=== PATIENT | male | born 1945 | race Caucasian/White ===

== ENCOUNTER → 2016-09-30 | Outpatient (CLI) | payer MEDICARE ==
--- NOTE | 2016-09-30 22:45 | CONS ---
DATE OF CONSULTATION: 71-year-old male patient, morbidly obese, with various comorbid conditions, more significant of which is cardiovascular disease coming in for a sleep apnea evaluation. Note that the patient has had a very complicated appendectomy. This was complicated by development of large anterior abdominal wall hernia. That was ultimately repaired and he also suffers from degenerative arthritis involving the knees. Based on all this, the patient has been sleeping on a recliner for the past 4 years. He watches TV starting at 9:00 p.m., and he goes to sleep somewhere between 10:00 p.m. and midnight, and he ultimately gets out of his recliner somewhere between 6 to 8:00 a.m. in the morning. He has been doing this for the past 4 years and he has not slept in his bed. He sleeps on his back while sleeping in a recliner. He does not have a bed partner. He snores and he has significant crowding of the posterior pharynx. He denies waking up gasping for air. No restlessness in the lower extremities. He has a dry mouth in the morning. No nocturia. No waking up choking or gasping sensation. He has chronic dyspnea in addition, he has COPD and previous history of asbestosis along with aortic valve disease and the patient undergone a previous aortic valve replacement. He is obese. His weight has been fluctuating. Overall he has gained considerable amount of weight and is up to 282 pounds for now. No sleepwalking. No sleeptalking. No nocturnal chest pain. No nocturnal heartburn. No sleep paralysis, hallucinations or cataplexy or nightmares. PAST MEDICAL HISTORY: Obesity, COPD, asbestosis, coronary artery disease, disease, aortic valve disease, ( ) valve replacement, degenerative arthritis, atrial fibrillation, status post ablation. Hyperlipidemia. Past surgical history includes a combination of hernia repair on the left groin, cystoscopy, left kidney surgery, vasectomy, right knee arthroscopy, carpal tunnel release bilaterally. The bilateral hip replacement, appendectomy/ruptured appendix. Repair the anterior abdominal wall hernia, cardiac catheterization with insertion of coronary stent in 2014, cystoscopy for removal of kidney stone in 2015, aortic valve replacement and cardiac catheterization with ablation of atrial fibrillation. Drug allergies are not known. Outpatient medication list includes: 1. Diltiazem 120 mg p.o. daily. 2. Metoprolol 25 mg half tablet twice a day. 3. Warfarin 4.5 mg. 4. Aspirin 81 milligrams p.o. daily. 5. Lasix 40 mg p.o. daily. 6. Klor-Con 20 mEq daily. 7. Nasonex 50 mg nasal spray. 8. ( ) on an as needed basis. 9. ( ) on an as needed basis. 10. Ventolin HFA on a p.r.n. basis. 11. Atorvastatin 80 mg p.o. daily. 12. Warfarin 4.5 mg alternating with 6 mg, 6 mg are being taken and Saturdays and 4.5 mg rest of the week. FAMILY HISTORY: Negative for sleep apnea. Father and brother had coronary artery disease. REVIEW OF SYSTEMS: Twelve-point review of systems was done. Positive findings all mentioned above in the history of present illness. His current vital signs are as follows: His blood pressure is 130/71, pulse 98, respirations 20, temperature 97.3, saturation 93% on room air. Weight is 295. Height is 5 feet 7 inches. Neck size is 19-1/2 inches. BMI is 46.6. GENERAL APPEARANCE: Obese, calm, comfortable. HEENT: Short neck, crowding posterior pharynx. Mallampati class IV. Neck is supple, yet thick and short. LUNGS: Clear to auscultation. HEART: Heart sounds are regular, plus S1, S2. No S3. No murmurs. ( ) intact. ABDOMEN: Soft, nontender, obese. Organs cannot be accurately palpated. EXTREMITIES: Trace edema. There is no cyanosis or clubbing. IMPRESSION: 1. Obstructive sleep apnea, clinically suspected, currently under investigation. 2. Chronic hypersomnia with an [place] score of 11. 3. Difficulty in laying down in bed and the patient has been sleeping in a recliner for reasons mentioned above, including chronic pain and degenerative arthritis of the hips and the knees and a large intraabdominal hernia. 4. Coronary artery disease. 5. Aortic valve replacement. 6. Paroxysmal atrial fibrillation, status post ablation. 7. Hyperlipidemia. 8. Asbestosis. 9. Chronic obstructive pulmonary disease. PLAN: Proceed with a screening polysomnogram. This will be done sleep center where the patient's sleep in a recliner. There is a fairly high suspicion for obstructive sleep apnea syndrome in this patient and the patient will be investigated and treated accordingly. Meanwhile, he will be encouraged to lose weight. Sleep hygiene measures were emphasized with him today in the office. Will continue to follow and make further recommendations based on his progress and the sleep results.
== END ==
LOC: SLEEP 15:13
PROVIDERS: ATTEND Internal Medicine Critical Care Medicine
DX: G47.10 Hypersomnia, unspecified (principal); I25.10 Atherosclerotic heart disease of native coronary artery without angina pectoris; I48.0 Paroxysmal atrial fibrillation; E78.5 Hyperlipidemia, unspecified; J44.9 Chronic obstructive pulmonary disease, unspecified; J61 Pneumoconiosis due to asbestos and other mineral fibers; Z79.899 Other long term (current) drug therapy; Z79.01 Long term (current) use of anticoagulants; Z79.82 Long term (current) use of aspirin
CPT/HCPCS: 99211

== ENCOUNTER → 2017-01-06 | Outpatient (CLI) | payer MEDICARE ==
--- NOTE | 2017-01-06 22:36 | PN ---
PROGRESS NOTE This is a 71-year-old male patient diagnosed having severe obstructive sleep apnea with an AHI of 42.3. The patient had failed CPAP titration due to emergence of central and mixed apneas. Based on that, he was upgraded to an ASV mode of ventilation. Today he is coming in for a brief compliance check. He has gotten his new machine approximately 13 days ago and is very compliant. He is having some issues with a leak around the mask. He was initially given an Marjorie View and at a later stage he was switched to an AirFit F20 Touch medium-size. He prefers the Amrjorie View and the AirFit F20, he claims, causes restriction of his nose to the point where he is unable to breathe through his nose. His compliance is gradually improving. He is averaging more than 5 hours of ASV use every night; however, his mouth is dry and this is attributed to the high leak which is estimated to be around 74 L/minute. His AHI while on treatment is down to 9 at this point. He is benefitting from treatment. He is waking up alert and awake during the day and he is much more refreshed. I think the mask interface needs to be adjusted to make the treatment much more successful. He is also known to have COPD, asbestosis, hyperlipidemia, paroxysmal atrial fibrillation and he has had previous aortic valve replacement in addition to coronary artery disease and abdominal hernia and degenerative arthritis. BP is 158/82, pulse 96, respirations 20, temperature 97.6 weight is 301 and saturation 94% on room air. GENERAL APPEARANCE: Calm, comfortable. HEENT: Short neck, crowding of posterior pharynx. No goiter or neck masses. LUNGS: Diminished breath sounds, but otherwise clear. HEART: Sounds are regular rate and rhythm. Normal S1, S2. No S3, S4. No murmurs. ABDOMEN: Soft, nontender. No organomegaly. EXTREMITIES: Trace edema. There is no cyanosis or clubbing. IMPRESSION: 1. Severe symptomatic obstructive sleep apnea, apnea-hypopnea index of 42.3. 2. Currently on Adaptive Servo Ventilation mode, as the patient has failed continuous positive airway pressure/bi-level positive airway pressure therapy. 3. Increased leak around the full-face mask. Looking for alternative. 4. Chronic hypersomnia, improving. 5. Poor sleep efficiency, improving. 6. Chronic obstructive pulmonary disease. 7. Asbestosis. 8. Hyperlipidemia. 9. Paroxysmal atrial fibrillation. 10.Aortic valve replacement. 11.Coronary artery disease. 12.Large abdominal hernia. PLAN: 1. Proceed with same pressure settings on his ASV. 2. Change this patient to an AirFit F20 large size full-face mask. 3. See me back in a month in followup. I think the change in the mask interface should help this patient's compliance in general. Will follow. MMKARLAL / IJN: [id number] /
== END ==
LOC: SLEEP 13:16
PROVIDERS: ATTEND Internal Medicine Critical Care Medicine
DX: G47.33 Obstructive sleep apnea (adult) (pediatric) (principal); G47.10 Hypersomnia, unspecified; J44.9 Chronic obstructive pulmonary disease, unspecified; E78.5 Hyperlipidemia, unspecified; I48.0 Paroxysmal atrial fibrillation; I25.10 Atherosclerotic heart disease of native coronary artery without angina pectoris; J61 Pneumoconiosis due to asbestos and other mineral fibers; K46.9 Unspecified abdominal hernia without obstruction or gangrene; Z95.2 Presence of prosthetic heart valve

== ENCOUNTER → 2017-06-16 | Outpatient (CLI) | payer MEDICARE ==
--- NOTE | 2017-06-16 14:09 | PN ---
PROGRESS NOTE A 72-year-old male patient coming in for a compliancy check. The patient had a difficult to treat obstructive sleep apnea. In fact, the patient had severe MONET with an AHI of 42.3 and he has failed CPAP/BiPAP titration. BiPAP treatment due to central events emerging at the time of treatment. Based on that, the patient was given an ASV BiPAP unit. On today's evaluation, the patient is using his BiPAP every night. He has an AirFit F20 full-face mask. He is averaging about 4.9 hours of ASV treatment every night and his leak factor is 79 L/minute. His AHI is down to 12. No central events have been noted. The measure tidal volume is around 650. No angina. He has chronic atrial fibrillation. He has asbestosis and hyperlipidemia as comorbid conditions. He has lost about 3 pounds since his last visitation. Apparently the ASV machine is at times turning itself off and he has an appointment with [facility] today and he is going to be considered for a new ASV unit. I would suggest keeping the settings the same. I would also suggest turning the ramp off as the patient is very comfortable with the current settings. REVIEW OF SYSTEMS: 12-point review of system was done. No angina, no palpitations. No nausea, vomiting or diarrhea. No cough or sputum production. No change in vision. No headache, no change in mental status. No dysuria, no falls, no sleepwalking or sleep talking. No altered mentation. No dry mouth. He has no other complaints, otherwise. BP is 122/54, pulse 85, respirations 18, temperature 98.1, saturation 95% on room air. Weight is 299. Height 65 inches. [place] score is 11. BMI is 49.7. GENERAL APPEARANCE: Calm, comfortable. Head is atraumatic, normocephalic. Neck is short, supple, there is no JVD. No goiter or neck masses. He has significant crowding of posterior pharynx. LUNGS: Diminished breath sounds. Otherwise clear. HEART: Sounds are irregular. Positive S1, S2. No S3, S4. No murmurs. ABDOMEN: Soft, nontender. No organomegaly. EXTREMITIES: No edema. No cyanosis or clubbing. SKIN: No ulcers or wounds or cellulitis. IMPRESSION: 1. Complex sleep apnea with treatment emergent central events. The patient's baseline apnea-hypopnea index is 42.3. He has failed CPAP/BiPAP treatment due to emergent central events. Apparently the patient is currently undergoing ASV treatment. 2. Increased leaks around the mask and the patient utilizing an AirFit F20 full-face mask. 3. Hypersomnia, improved. 4. Chronic obstructive pulmonary disease. 5. Asbestosis. 6. Hyperlipidemia. 7. Paroxysmal atrial fibrillation. 8. Aortic valve replacement. 9. Coronary artery disease. 10.Large abdominal wall hernia. PLAN: 1. Continue same ASV settings. 2. Replace ASV unit with a newer unit for the problems mentioned above. 3. Encourage further weight loss. 4. See me back in a year's time or earlier, if needed. MMODL / IJN: [id number] /
== END | disposition home or self-care (01) ==
LOC: SLEEP 12:44
PROVIDERS: ATTEND Internal Medicine Critical Care Medicine
DX: G47.30 Sleep apnea, unspecified (principal); G47.10 Hypersomnia, unspecified; J44.9 Chronic obstructive pulmonary disease, unspecified; J61 Pneumoconiosis due to asbestos and other mineral fibers; E78.5 Hyperlipidemia, unspecified; I48.0 Paroxysmal atrial fibrillation; I25.10 Atherosclerotic heart disease of native coronary artery without angina pectoris; K43.9 Ventral hernia without obstruction or gangrene; Z95.2 Presence of prosthetic heart valve

== ENCOUNTER → 2018-01-07 | Outpatient (CLI) | payer MEDICARE ==
[2018-01-07 12:07] LABS: Basophils # (A) 0.1 k/uL (0-0.2); Basophils % (A) 1 %; Eosinophils # (A) 0.1 k/uL (0-0.7); Eosinophils % (A) 1 %; HCT 46.1 % (39.0-53.0); HGB 15.1 gm/dL (13.0-17.5); Lymphocytes # (A) 1.4 k/uL (1.0-4.8); Lymphocytes % (A) 21 %; MCH 29.8 pg (25.0-35.0); MCHC 32.7 g/dL (31.0-37.0); MCV 91.1 fL (80.0-100.0); Mean Platelet Volume 7.3; Monocytes # (A) 0.6 k/uL (0-1.0); Monocytes % (A) 9 %; Neutrophils # (A) 4.3 k/uL (1.3-7.7); Neutrophils % (A) 66 %; Platelet Count 254 k/uL (150-450); RBC 5.06 m/uL (4.30-5.90); RDW 13.8 % (11.5-15.5); WBC 6.5 k/uL (3.8-10.6)
[2018-01-07 12:12] LABS: Calcium 9.3 mg/dL (8.4-10.2); Potassium 4.3 mmol/L (3.5-5.1)
== END | disposition home or self-care (01) ==
LOC: LABPAT 10:47
PROVIDERS: ATTEND Urology
DX: Z01.818 Encounter for other preprocedural examination (principal); Z01.812 Encounter for preprocedural laboratory examination; Q62.11 Congenital occlusion of ureteropelvic junction; N20.0 Calculus of kidney; E78.00 Pure hypercholesterolemia, unspecified; R31.29 Other microscopic hematuria; I10 Essential (primary) hypertension
CPT/HCPCS: 36415; 80048; 85025; 87086; 93005

== ENCOUNTER 2018-01-14 05:55 | Day surgery (SDC) | payer MEDICARE ==
[2018-01-11 15:39] VITALS: BMI 45.1
[~2018-01-14 05:55] MED LIST: DEXAMETHASONE SOD PHOSPHATE 10 MG/ML 1 ML VIAL IV ONE; LIDOCAINE 1% 20 ML VIAL (10MG/ML) FOR IV START INTRADERMA PRN; MIDAZOLAM 2 MG/2 ML VIAL IV PRN; ONDANSETRON 4 MG/2 ML VIAL IVP ONE; ceFAZolin IN SWFI 2 GM/20 ML SYRINGE IVP ONE; fentaNYL (PF) 50 MCG/ML 2 ML AMP IV PRN
[2018-01-14] MEDS ORDERED: LACTATED RINGERS 1,000 ML IV SCH (06:00)
--- NOTE | 2018-01-14 06:31 | XR ---
EXAMINATION TYPE: XR KUB DATE OF EXAM: 01/14/2018 6:24 AM CLINICAL HISTORY: Preop left kidney stones TECHNIQUE: Two supine KUB images of the abdomen are obtained. COMPARISON: CT abdomen and pelvis November 21, 2014. FINDINGS: There are 6-8 right-sided renal calculi including a elongated 2.0 cm calculus at L3-L4 leve l lower pole level right kidney. I suspect also 6-8 left-sided renal calculi including a 1.3 cm calcu jcarlos L4 level lower pole level left kidney. A few left-sided pelvic phleboliths are felt present. Large bridging osteophytes are seen in the upper to mid lumbar spine. Metallic hardware from bilatera l hip surgery is partially imaged. Overall nonobstructive bowel gas pattern. IMPRESSION: Bilateral nephrolithiasis.
--- NOTE | 2018-01-14 06:32 | P.GSHP ---
History of Present Illness H&P Date: 01/11/18 Chief Complaint: Left flank discomfort The patient is a 72-year-old white male with a 6 month history of left flank discomfort, which radiates to the left lower quadrant of the abdomen. He underwent a left pyeloplasty in 1955, and has previously undergone right ureteroscopy with laser lithotripsy in 2014. He now presents with marked left hydronephrosis and left renal calculi measuring up to 1 cm in size. - Cardiovascular Cardiovascular: Reports high blood pressure - Respiratory Respiratory: Reports dyspnea - Gastrointestinal Gastrointestinal: Denies nausea, Denies vomiting - Genitourinary (Male) Genitourinary: Denies hematuria - Endocrine Endocrine: Reports excessive sweating Past Medical History Past Medical History: COPD, CVA/TIA, Hyperlipidemia, Hypertension, Osteoarthritis (OA), Pulmonary Embolus (PE) Additional Past Medical History / Comment(s): dry skin, and mesothelioma,kidney stones History of Any Multi-Drug Resistant Organisms: None Reported Past Surgical History: Appendectomy, Heart Catheterization With Stent, Hernia Repair, Joint Replacement, Orthopedic Surgery Past Anesthesia/Blood Transfusion Reactions: Previous Problems w/ Anesthesia Additional Past Anesthesia/Blood Transfusion Reaction / Comment(s): pt stated he has been combative in the past Date of Last Stent Placement:: 12/16/12 Smoking Status: Former smoker - Past Family History Father Family Medical History: Congestive Heart Failure (CHF) Mother Family Medical History: No Reported History Medications and Allergies Home Medications Medication Instructions Recorded Confirmed Type Albuterol Inhaler [Ventolin 1 puff INHALATION QID PRN 10/11/14 01/11/18 History Inhaler] Aspirin 81 mg PO DAILY 10/11/14 01/11/18 History Diltiazem HCl [Diltiazem 24Hr ER] 120 mg PO DAILY 10/11/14 01/11/18 History Ipratropium-Albuterol Nebulize 3 ml IH QID PRN 10/11/14 01/11/18 History [Duoneb 0.5 mg-3 mg/3 ml Soln] Mometasone Furoate [Nasonex Nasal 1 spray EA NOSTRIL BID 10/11/14 01/11/18 History [place]] Pravastatin Sodium [Pravachol] 80 mg PO HS 10/11/14 01/11/18 History Budesonide-Formot 160-4.5 Mcg 2 puff INHALATION BID PRN 01/11/18 01/11/18 History [Symbicort 160-4.5 Mcg Inhaler] Ezetimibe [Zetia] 10 mg PO DAILY 01/11/18 01/11/18 History Furosemide [Lasix] 60 mg PO Q2D 01/11/18 01/11/18 History Metoprolol Tartrate [Lopressor] 12.5 mg PO BID 01/11/18 01/11/18 History Potassium Chloride [Klor-Con 20] 20 meq PO DAILY 01/11/18 01/11/18 History Warfarin Sodium [Jantoven] 3 mg PO SUTUFR 01/11/18 01/11/18 History Warfarin Sodium [Jantoven] 3.5 mg PO MOWE 01/11/18 01/11/18 History Warfarin Sodium [Jantoven] 6 mg PO TH 01/11/18 01/11/18 History Allergies Allergy/AdvReac Type Severity Reaction Status Date / Time atorvastatin calcium Allergy CRAMPS IN Verified 01/11/18 12:55 [From Lipitor] LEGS Surgical - Exam - General well developed, well nourished, no distress - Neck no masses, trachea midline - Respiratory normal respiratory effort, clear to auscultation - Cardiovascular Rhythm: regular Abnormal Heart Sounds: no systolic murmur, no diastolic murmur, no rub, no S3 Gallop, no S4 Gallop, no click, no other - Abdomen Abdomen: soft, non tender, no guarding, no rigid, no rebound - Psychiatric oriented to time, oriented to person, oriented to place, speech is normal, memory intact Assessment and Plan (1) Calculus of kidney Status: Acute Code(s): N20.0 - CALCULUS OF KIDNEY SNOMED Code(s): 27582909 Plan: Cystoscopy, left retrograde pyelogram, left ureteroscopy with Holmium laser lithotripsy and ureteral stent insertion. The rationale for the procedure was reviewed in detail with the patient. The puroose of the procedure is to determine whether or not the patient still has UPJ obstruction, and also to fragment his left renal calculi. Stone basketing may also be required. Potential risks include anesthesia, bleeding, infection, and ureteral injury.
[2018-01-14 07:00] LABS: INR 1.2 (<1.2); Prothrombin Time 11.3 sec (9.0-12.0)
[2018-01-14] MEDS ORDERED: PROPOFOL 10 MG/ML 20 ML VIAL IV ONE (07:33)
[2018-01-14] MEDS ORDERED: fentaNYL (PF) 50 MCG/ML 2 ML AMP ONE (07:33)
[2018-01-14] MEDS ORDERED: MIDAZOLAM 2 MG/2 ML VIAL ONE (07:33)
[2018-01-14] MEDS ORDERED: LIDOCAINE 1% INJ 10MG/ML (20 ML MDV) ONE (07:33)
[2018-01-14] MEDS ORDERED: SUCCINYLCHOLINE CHLORIDE VIAL 200 MG/10 ML VIAL IV ONE (07:33)
[2018-01-14] MEDS ORDERED: IOPAMIDOL-370 50ML BTL MISCELLANE ONE (07:53)
[2018-01-14] MEDS ORDERED: LACTATED RINGERS 1,000 ML IV ONE (08:05)
[2018-01-14 08:52] VITALS: TEMP 96.8
--- NOTE | 2018-01-14 09:02 | FL ---
EXAMINATION TYPE: FL urography retrograde DATE OF EXAM: 01/14/2018 COMPARISON: NONE HISTORY: DR. CARSON RETRO CYSTO WITH STENT PLACE dr. carson supervised use of meenu for a possible retro cysto, drain lt kidney and stent placement 19 secs fluoro used and 2 paper images
--- NOTE | 2018-01-14 09:13 | P.OP ---
Date of Procedure: 01/14/18 Preoperative Diagnosis: Left hydronephrosis, left renal calculi Postoperative Diagnosis: Same Procedure(s) Performed: Cystoscopy, left retrograde pyelogram, left ureteroscopy, left ureteral stent insertion Anesthesia: JENNIFERA Surgeon: Ted Cross Estimated Blood Loss (ml): 0 IV fluids (ml): 800 Pathology: none sent Condition: stable Disposition: PACU Indications for Procedure: The patient is a 72-year-old white male with a 6 month history of left flank discomfort, which radiates to the left lower quadrant of the abdomen. He underwent a left pyeloplasty in 1955, and has previously undergone right ureteroscopy with laser lithotripsy in 2015. He now presents with marked left hydronephrosis and left renal calculi measuring up to 1 cm in size. Operative Findings: Massively dilated left renal pelvis. No calculi seen. Description of Procedure: The patient was taken to the operating room and placed in the dorsolithotomy position, with legs supported in Celestino stirrups. The external genitalia was prepped and draped sterilely. The 30 lens was used to introduce the 22-[place] Stortz cystoscopic sheath through the urethra and into the bladder under direct vision. The prostatic urethra showed evidence of moderate lateral lobe enlargement. The bladder was examined in its entirety. Both ureteral orifices were normal anatomic location and configuration. No tumors or foreign bodies were seen. Using a 10-[place] cone-tipped catheter, a left retrograde pyelogram was performed. The ureter was noted to deviate laterally, and inserted into the renal pelvis laterally rather than medially, indicating malrotation of the kidney. There were no filling defects, and no evidence of obstruction. The renal pelvis appeared to be markedly dilated. A 0.038 inch Glidewire was passed through the cystoscope. The left ureteral orifice was cannulated, and the Glidewire was advanced up to the left renal pelvis. The cystoscope was removed, and an 11/13-[place] ureteral access catheter was passed over the wire, up to the proximal ureter. The Olympus flexible ureteroscope was passed through the ureteral access catheter sheath and advanced under direct vision, up to the left renal pelvis. Visualization within the renal pelvis was impaired , due to the size of the renal pelvis and the fact that the urine within it was not clear. Therefore, 300 mL of urine was aspirated from the left renal pelvis. This urine was eleni in color, with some evidence of hematuria. Ureteroscopy was then repeated. Visualization was improved, but the calculi were never identified. The ureteroscope was removed, and the Glidewire was passed through the ureteral access catheter sheath, which was then removed. The Glidewire was backloaded into the cystoscope, which was advanced into the bladder. A 28 cm, 4.8-[place] double-J ureteral stent was placed over the wire. Proper stent positioning was verified fluoroscopically and endoscopically. The bladder was emptied and the cystoscope removed. The patient tolerated the procedure well and was taken to the recovery room in stable condition.
[2018-01-14 09:51] VITALS: PULSE 71; RESP 18
[2018-01-14 09:58] VITALS: BP 144/84
== END 2018-01-14 10:34 | disposition home or self-care (01) ==
LOC: OR 05:55
PROVIDERS: ATTEND Urology
DX: N13.2 Hydronephrosis with renal and ureteral calculous obstruction (principal); M19.90 Unspecified osteoarthritis, unspecified site; J44.9 Chronic obstructive pulmonary disease, unspecified; I10 Essential (primary) hypertension; I25.10 Atherosclerotic heart disease of native coronary artery without angina pectoris; I48.91 Unspecified atrial fibrillation; N40.0 Benign prostatic hyperplasia without lower urinary tract symptoms; E78.5 Hyperlipidemia, unspecified; Z86.73 Personal history of transient ischemic attack (TIA), and cerebral infarction without residual deficits; Z87.442 Personal history of urinary calculi; Z86.711 Personal history of pulmonary embolism; Z87.891 Personal history of nicotine dependence; Z79.01 Long term (current) use of anticoagulants; Z79.82 Long term (current) use of aspirin; Z88.8 Allergy status to other drugs, medicaments and biological substances; Z95.5 Presence of coronary angioplasty implant and graft; Z96.643 Presence of artificial hip joint, bilateral; Z82.49 Family history of ischemic heart disease and other diseases of the circulatory system; Z79.899 Other long term (current) drug therapy
CPT/HCPCS: 52332; 85610; 74420; 74018; C2625; C1758; C1769; J2250; J0330; J1100; J2405; J2001; J3010; J2704; J0690; Q9967

== ENCOUNTER → 2018-06-15 | Outpatient (CLI) | payer MEDICARE ==
--- NOTE | 2018-06-15 22:51 | PN ---
PROGRESS NOTE This 73-year-old male patient coming in for an annual check regarding obstructive sleep apnea. The patient was diagnosed having severe MONET with an AHI of 42.3. The patient failed CPAP and BiPAP treatment and based on that, the patient was given an ASV BiPAP treatment. On today's evaluation, the patient is coming in for routine check. He is still snoring and he is having difficulties with tiredness and sleepiness during the day. I checked his ASV unit and the settings are essentially the same with an EPAP of 10 pressure support minimum of 4 and a maximum of 10. I noted that there was an extensive amount of leaks in the system and this was probably related to a malfunctioning mask in the tube. His leak in the order of 114 L per minute. His tidal volumes at 480 with a respiratory rate of 16, and his AHI while on treatment is still quite elevated. He has been averaging of 5.1 hours of ASV treatment per night and his use for more than 4 hours 29 out of 30 days. Never the less, he is still quite symptomatic. I noted the leaks and I noted the significance of tidal volumes that has occurred along with leaks compared to his previous evaluation and compliancy check. REVIEW OF SYSTEMS: 12-point review of system was done. No heart failure. No angina. No palpitations. No change in mental status. He is a bit sleepy and tired during the day. His treatment is not absolutely successful. No sinus infections. No headaches. No altered mentation. PHYSICAL EXAMINATION: BP is 154/84, pulse 96, respirations 20, temperature 97.8, saturation 94% on room air. Height is 5 feet 5 inches, weight is 296, and BMI 49.2. GENERAL APPEARANCE: Calm, comfortable. Head is atraumatic, normocephalic. NECK: Supple. No JVD. No goiter or neck masses. Lungs: Diminished, otherwise clear. HEART: Sounds regular rate and rhythm. Normal S1, S2. No S3. No murmurs. ABDOMEN: Soft, nontender. No organomegaly. EXTREMITIES: No edema. No cyanosis or clubbing. IMPRESSION: 1. Severe obstructive sleep apnea with an AHI of 42.3. Currently on ASV treatment. 2. Increased leaks around the mask and tubing. The patient utilizing an AirFit F20 full face mask. 3. Hypersomnia. 4. Chronic obstructive pulmonary disease. 5. Asbestosis. 6. Hyperlipidemia. 7. Paroxysmal atrial fibrillation. 8. History of aortic valve replacement. 9. Coronary artery disease. 10.Abdominal wall hernia which is large in size. PLAN: 1. Continue ASV mode. 2. I noted that there was a significant amount of leak and average pressure being utilized on the ASV 12.9/8.9, which is considerably lower compared to the CPAP pressures. We will replace the tube and the mask. Ask the patient to come back in 30 to 90 days for reevaluation. Consider change in the setting of the ASV to an automatic mode if the patient continues to have residual obstructive respiratory events. We will monitor the patient closely. We will continue to follow. MMODL / IJN: [id number] /
== END | disposition home or self-care (01) ==
LOC: SLEEP 13:11
PROVIDERS: ATTEND Internal Medicine Critical Care Medicine
DX: G47.33 Obstructive sleep apnea (adult) (pediatric) (principal); J44.9 Chronic obstructive pulmonary disease, unspecified; J61 Pneumoconiosis due to asbestos and other mineral fibers; E78.5 Hyperlipidemia, unspecified; I48.0 Paroxysmal atrial fibrillation; I25.10 Atherosclerotic heart disease of native coronary artery without angina pectoris; K43.9 Ventral hernia without obstruction or gangrene; Z99.89 Dependence on other enabling machines and devices; Z95.2 Presence of prosthetic heart valve

== ENCOUNTER → 2018-08-03 | Outpatient (CLI) | payer MEDICARE ==
--- NOTE | 2018-08-03 18:25 | PN ---
PROGRESS NOTE This is a 73-year-old male patient coming in for followup regarding his obstructive sleep apnea. The patient has severe MONET with an AHI of 42.3. The patient has failed CPAP and BiPAP in the past and the patient has been given ASV BiPAP treatments. His current BiPAP setting is EPAP minimum of 14, pressure support of 3 minimum and maximum of 10. I checked his compliance data. The patient is very compliant and is wearing his CPAP every night. He has been averaging around 5.3 hours of CPAP use per night. His CPAP compliancy for more than 4 hours is 100%. His AHI is down to 10. His tidal volume is at 600. He is still leaking extensively, on the order of 95 L/minute. He is using an AirFit F20 large-sized full-face mask. He is doing well. He is compliant. He is waking up refreshed and alert during the day. Despite his residual sleep apnea, the patient is still benefitting from the treatment. His weight is up by a few pounds since his last evaluation. No other new complaints otherwise for now. REVIEW OF SYSTEMS: Fourteen-point review of system was done. Positive findings are all mentioned in the history of present illness. PHYSICAL EXAMINATION: BP is 149/84, pulse 90, respirations 18, temperature 97.7, saturation 95% on room air. [place] score is 5. BMI is 46.9. Weight is 300. GENERAL APPEARANCE: Calm, comfortable. Head is atraumatic, normocephalic. NECK: Supple. There is no JVD. No goiter or neck masses. Mallampati class IV. LUNGS: Clear to auscultation. HEART: Heart sounds are regular rate and rhythm. Normal S1, S2. No S3, S4. No murmurs. ABDOMEN: Soft, nontender. No organomegaly. EXTREMITIES: No edema. No cyanosis or clubbing. NEUROLOGIC: Alert and oriented x3. No focal neurological deficits. Psychiatrically there is no anxiety or depression at this point in time. IMPRESSION: 1. Severe sleep apnea, apnea/hypopnea index of 42.3. Currently on ASV BiPAP mode of ventilation. The patient has failed CPAP and BiPAP therapy in the past. 2. Obesity with a body mass index of 46.9. 3. Hypersomnia, improved. Smicksburg score is down to 5. 4. Chronic obstructive pulmonary disease. 5. Asbestosis. 6. Paroxysmal atrial fibrillation. 7. Hyperlipidemia. 8. History of aortic valve replacement. 9. Coronary artery disease. 10.Abdominal wall hernia. PLAN: Change this patient to an ASV RO. I am hoping to eliminate his obstructive respiratory events completely. I put him on EPAP, minimum of 10, maximum of 14, pressure support minimum of 4, maximum of 10, and I offered him a DreamWear full-face mask on a trial basis. Alternative mask will be the AirFit F20. Encourage weight loss. Implement good sleep hygiene measures. See me back in 6 months' time in followup for a compliancy check. MMODL / IJN: [id number] /
== END ==
LOC: SLEEP 15:26
PROVIDERS: ATTEND Internal Medicine Critical Care Medicine
DX: G47.33 Obstructive sleep apnea (adult) (pediatric) (principal); E66.9 Obesity, unspecified; J44.9 Chronic obstructive pulmonary disease, unspecified; I48.0 Paroxysmal atrial fibrillation; E78.5 Hyperlipidemia, unspecified; I25.10 Atherosclerotic heart disease of native coronary artery without angina pectoris; J61 Pneumoconiosis due to asbestos and other mineral fibers; K43.9 Ventral hernia without obstruction or gangrene; Z95.2 Presence of prosthetic heart valve; Z68.42 Body mass index [BMI] 45.0-49.9, adult; Z99.89 Dependence on other enabling machines and devices

== ENCOUNTER → 2019-05-03 | Outpatient (CLI) | payer MEDICARE ==
--- NOTE | 2019-05-03 20:48 | PN ---
PROGRESS NOTE SLEEP CENTER PROGRESS NOTE: This patient has coronary artery disease and previous aortic valve replacement in addition to paroxysmal atrial fibrillation. He has also chronic lung disease with COPD, asbestosis and obstructive sleep apnea. His MONET is severe and he has an AHI of 42.3. He is utilizing an ASV BiPAP unit. He is coming in for an annual check. The patient is currently on ASV mode with a minimum EPAP of 10, maximum of 14, minimum pressure support of 4, maximum pressure support of 10. He has been extremely compliant. He has been averaging around 6.5 hours of ASV treatment per night and he is utilizing his machine for more than 4 hours 100% of the time. Average pressure utilized is 18.7/11.8. Leak is on the order of 70 L/minute and his respiratory rate is around 14 with a tidal volume of 720 and his AHI while on treatment is down to 9. No central apneas were noted. No snoring. No cardiomyopathy in terms of CHF. No swelling in the lower extremities. No significant cardiac arrhythmias for now. The patient continues to benefit from the treatment. He is wearing his ASV every night and he is using his Simplus full-face mask, medium size. His [place] score is down to 5. REVIEW OF SYSTEMS: Fourteen-point review of systems was done. Positive findings were all mentioned above in the history of present illness. PHYSICAL EXAMINATION: VITAL SIGNS: BP is 163/95, pulse 88, respiration 20, temperature 97.4, saturation 95% on room air. Height is 5 feet 7 inches, weight 293, and BMI is 45.8. GENERAL APPEARANCE: Calm, comfortable. HEAD: Atraumatic, normocephalic. NECK: Supple. No JVD. No goiter or neck masses. LUNGS: Clear to auscultation. HEART: Heart sounds are regular rate and rhythm. Normal S1, S2. No S3, S4. No murmurs. ABDOMEN: Soft, nontender. No organomegaly. EXTREMITIES: No edema. No cyanosis or clubbing. NEUROLOGIC: The patient is awake and alert. There is focal neurological deficit. PSYCHIATRIC: Negative for anxiety or depression. IMPRESSION: 1. Severe sleep apnea with an apnea/hypopnea index of 42.3, currently on ASV BiPAP mode with good compliancy and good clinical response. No need for any further adjustments on the pressure setting. He is utilizing a Simplus full-face mask. 2. Obesity with a body mass index of 45.8 with interval weight loss. 3. Hypersomnia, recovered. [place] score is down to 5. 4. Asbestosis. 5. Chronic obstructive pulmonary disease. 6. Paroxysmal atrial fibrillation. 7. Coronary artery disease. 8. Aortic valve replacement. 9. Hyperlipidemia. PLAN: 1. Encourage further weight loss. 2. Refill the CPAP supplies, including Simplus medium-sized full-face mask. No need for any pressure adjustments. Keep the same setting. Treatment is successful. See me back in a year's time. Monitor the cardiac condition. Report back any new-onset cardiomyopathy that may arise over the years. MMODL / IJN: [id number] /
== END | disposition home or self-care (01) ==
LOC: SLEEP 15:58
PROVIDERS: ATTEND Internal Medicine Critical Care Medicine
DX: G47.33 Obstructive sleep apnea (adult) (pediatric) (principal); E66.9 Obesity, unspecified; Z68.42 Body mass index [BMI] 45.0-49.9, adult; J61 Pneumoconiosis due to asbestos and other mineral fibers; J44.9 Chronic obstructive pulmonary disease, unspecified; I48.0 Paroxysmal atrial fibrillation; I25.10 Atherosclerotic heart disease of native coronary artery without angina pectoris; E78.5 Hyperlipidemia, unspecified; Z95.4 Presence of other heart-valve replacement

== ENCOUNTER → 2020-03-05 | Outpatient (CLI) | payer MEDICARE ==
--- NOTE | 2020-03-05 11:52 | CT ---
EXAMINATION TYPE: CT abdomen pelvis wo con DATE OF EXAM: 03/05/2020 HISTORY: No complaints of pain. Hematuria for 3 days. History of kidney stones. CT DLP: 2363.6 mGycm. Automated Exposure Control for Dose Reduction was Utilized. TECHNIQUE: CT scan of the abdomen and pelvis is performed without oral or IV contrast. COMPARISON: CT abdomen and pelvis November 21, 2014 FINDINGS: Within the limitations of a non-contrast s tudy, the following observations are made. LUNG BASES: Subcutaneous metallic foreign body anterior right lower chest wall axial image 4, small herniation of lung at this level. Correlate for interval trauma. Redemonstration of elevated left hemidiaphragm. S urgical change at level of aortic valve. At least moderate coronary artery calcification and/or stent s. [id number]-[id number] right greater than left bibasilar linear scarring and/or atelectasis. LIVER/GB: No significant abnormality is appreciated. PANCREAS: No significant abnormality is seen. SPLEEN: No significant abnormality is seen. ADRENALS: No significant abnormality is seen. KIDNEYS: There is now irregular calculus lower pole left kidney measuring 19 mm long axis sagittal im age 53. There is 5 mm nonobstructing right renal calculus upper to midpole level axial image 69. No h ydronephrosis or obstructing right ureteral calculus. Left kidney shows interval increased cortical thinning. There are several small nonobstructing left r enal calculi measuring up to 11 mm in size coronal image 68. Central cyst or cystic lesion shows incr eased size measuring 7.1 x 5.6 cm current study as image 69. Craniocaudal length and 0.5 cm image 67. This is contiguous with the upper pole collecting system which is dilated. Poor visualization of lef t ureter noted. There is a mobile 5.1 cm hyperdense rounded structure. No hydroureter. Suboptimal carmelita luation of bladder without intraluminal mass clearly seen. BOWEL: Sigmoid colonic diverticula. Surgical clips from appendectomy at base of cecum. No suspicious small or large bowel dilatation. GENITAL ORGANS: No gross abnormality seen. LYMPH NODES: No greater than 1cm abdominal or pelvic lymph nodes are appreciated. Few prominent but s ubcentimeter iliac chain lymph nodes bilaterally. These are stable. OSSEOUS STRUCTURES: Metallic bilateral hip arthroplasty causes streak artifact limiting evaluation of pelvic structures. OTHER: Surgical clips right groin region. Mild calcified plaque aorta extends into branch vessels. IMPRESSION: 1. Suspect worsening left-sided hydronephrosis and left-sided cortical volume loss. Persistent bilate ral nonobstructing renal calculi. Of most concern is hyperdense material in the collecting system or less likely a cyst in the central left kidney. Differential includes focal mass or neoplasm along wit h other etiologies such as fungal ball or hematoma. Consider further investigation with multiphase co ntrast-enhanced CT to confirm within collecting system.
== END | disposition home or self-care (01) ==
LOC: RADCTMAIN 11:13
PROVIDERS: ATTEND Urology
DX: N20.0 Calculus of kidney (principal); Z88.8 Allergy status to other drugs, medicaments and biological substances
CPT/HCPCS: 74176

== ENCOUNTER 2020-03-20 12:09 | Day surgery (SDC) | payer MEDICARE ==
[2020-03-16 13:36] VITALS: BMI 44.6
--- NOTE | 2020-03-19 12:49 | P.GSHP ---
History of Present Illness H&P Date: 03/15/20 Chief Complaint: Gross Hematuria The patient is a 75-year-old white male with known left UPJ obstruction. He underwent a left pyeloplasty in 1955, but his hydronephrosis has persisted. In 2017 he reported left flank discomfort. He underwent cystoscopy, left retrograde pyelogram, left ureteroscopy, and left ureteral stent insertion in December 2017. 300 mL of urine was aspirated from the left renal pelvis. No abnormalities were seen. He recently presented back with gross hematuria. A CT scan shows what appears to be either clot or tumor within the left renal pelvis. Urine cytology is positive. Past Medical History Past Medical History: COPD, CVA/TIA, Hyperlipidemia, Hypertension, Osteoarthritis (OA), Pulmonary Embolus (PE) Additional Past Medical History / Comment(s): dry skin, and mesothelioma,kidney stones History of Any Multi-Drug Resistant Organisms: None Reported Past Surgical History: Appendectomy, Heart Catheterization With Stent, Hernia Repair, Joint Replacement, Orthopedic Surgery Additional Past Surgical History / Comment(s): "HEART VALVE REPLACED ", RIGHT AND LEFT HIP REPACEMENT Past Anesthesia/Blood Transfusion Reactions: Previous Problems w/ Anesthesia Additional Past Anesthesia/Blood Transfusion Reaction / Comment(s): pt stated he has been combative in the past Date of Last Stent Placement:: 12/16/12 Past Psychological History: Anxiety - Past Family History Mother Family Medical History: No Reported History Father Family Medical History: Congestive Heart Failure (CHF) Daughter(s) Family Medical History: Cancer Additional Family Medical History / Comment(s): breast cancer Medications and Allergies Home Medications Medication Instructions Recorded Confirmed Type Albuterol Inhaler (Mhu) [Ventolin 2 puff INHALATION QID PRN 10/11/14 03/16/20 History Inhaler] Aspirin 81 mg PO DAILY 10/11/14 03/16/20 History Ipratropium-Albuterol Nebulize 3 ml IH QID PRN 10/11/14 03/16/20 History [Duoneb 0.5 mg-3 mg/3 ml Soln] Pravastatin Sodium [Pravachol] 80 mg PO HS 10/11/14 03/16/20 History Budesonide-Formot 160-4.5 Mcg 2 puff INHALATION BID PRN 01/11/18 03/16/20 History [Symbicort 160-4.5 Mcg Inhaler] Ezetimibe [Zetia] 10 mg PO DAILY 01/11/18 03/16/20 History Furosemide [Lasix] 80 mg PO DAILY 01/11/18 03/16/20 History Metoprolol Tartrate [Lopressor] 12.5 mg PO BID 01/11/18 03/16/20 History Warfarin Sodium [Jantoven] 3 mg PO MOFR 01/11/18 03/16/20 History Warfarin Sodium [Jantoven] 6 mg PO SUTUWETHSA 01/11/18 03/16/20 History Acetaminophen [Tylenol Extra 500 - 1,000 mg PO DIRECTED PRN 03/16/20 03/16/20 History Strength] Chlorpheniramine/Dextromethorp 1 each PO DIRECTED PRN 03/16/20 03/16/20 History [Coricidin Hbp Cough & Cold Tab] Latanoprost/Pf [Latanoprost 0.005% 1 drop RIGHT EYE HS 03/16/20 03/16/20 History Eye Drop] Potassium Chloride [Klor-Con 20] 20 meq PO DAILY 03/16/20 03/16/20 History Allergies Allergy/AdvReac Type Severity Reaction Status Date / Time atorvastatin calcium Allergy CRAMPS IN Verified 03/16/20 12:57 [From Lipitor] LEGS Surgical - Exam - General well developed, well nourished, no distress - Neck no masses, trachea midline - Respiratory normal respiratory effort, other (coarse breath sounds on left) - Cardiovascular Rhythm: regular Abnormal Heart Sounds: no systolic murmur, no diastolic murmur, no rub, no S3 Gallop, no S4 Gallop, no click, no other - Abdomen Abdomen: soft, non tender, no guarding, no rigid, no rebound - Psychiatric oriented to time, oriented to person, oriented to place, speech is normal, memory intact Results - Imaging CT scan - abdomen: report reviewed, image reviewed Assessment and Plan (1) Gross hematuria Status: Acute Code(s): R31.0 - GROSS HEMATURIA SNOMED Code(s): 231115242 Plan: Cystoscopy, left retrograde pyelogram, left ureteroscopy with biopsy, left ureteral stent insertion. If a bladder tumor is identified, TUR-BT will be performed. This approach has been reviewed in detail with the patient. He is aware of potential risks, which include anesthesia, bleeding, infection, ureteral injury, and bladder perforation.
[~2020-03-20 12:09] MED LIST changes: -DEXAMETHASONE SOD PHOSPHATE 10 MG/ML 1 ML VIAL IV ONE; +DEXAMETHASONE SOD PHOSPHATE 4 MG/ML 1 ML VIAL IV ONE; +HYDROmorphone 0.5 MG/0.5 ML SYRINGE IVP PRN; +LACTATED RINGERS 1,000 ML IV SCH; +LIDOCAINE 1% (10MG/ML) FOR IV START INTRADERMA PRN; -LIDOCAINE 1% 20 ML VIAL (10MG/ML) FOR IV START INTRADERMA PRN; +ceFAZolin 3 GM in SODIUM CHLORIDE 0.9% 100 ML IVPB ONE; -ceFAZolin IN SWFI 2 GM/20 ML SYRINGE IVP ONE; -fentaNYL (PF) 50 MCG/ML 2 ML AMP IV PRN
[2020-03-20] MEDS ORDERED: SUCCINYLCHOLINE CHLORIDE 100 MG/5 ML SYR IV ONE (13:40)
[2020-03-20] MEDS ORDERED: PROPOFOL 10 MG/ML 20 ML VIAL IV ONE (13:40)
[2020-03-20] MEDS ORDERED: MIDAZOLAM 2 MG/2 ML VIAL ONE (13:40)
[2020-03-20] MEDS ORDERED: GLYCOPYRROLATE 0.2 MG/ML 2 ML VIAL ONE (13:40)
[2020-03-20] MEDS ORDERED: NEOSTIGMINE 1 MG/ML 10 ML VIAL ONE (13:40)
[2020-03-20] MEDS ORDERED: LIDOCAINE 1% INJ 10MG/ML (20 ML MDV) ONE (13:40)
[2020-03-20] MEDS ORDERED: ROCURONIUM 10 MG/ML (10 ML VIAL) IV ONE (13:40)
[2020-03-20] MEDS ORDERED: fentaNYL (PF) 50 MCG/ML 2 ML AMP ONE (13:40)
[2020-03-20 13:42] LABS: INR 1.2 (<1.2); Prothrombin Time 11.7 sec (9.0-12.0)
[2020-03-20] MEDS ORDERED: IOPAMIDOL-370 50ML BTL IRRIGATION ONE (14:07)
[2020-03-20 15:15] VITALS: TEMP 97.1
--- NOTE | 2020-03-20 15:18 | P.OP ---
Date of Procedure: 03/20/20 Preoperative Diagnosis: Gross hematuria Postoperative Diagnosis: Same Procedure(s) Performed: Cystoscopy, left retrograde pyelogram, left ureteroscopy, left ureteral stent insertion Anesthesia: JENNIFERA Surgeon: Ted Cross Estimated Blood Loss (ml): 0 IV fluids (ml): 700 Pathology: other (Left renal pelvic fluid for cytology.) Condition: stable Disposition: PACU Indications for Procedure: The patient is a 75-year-old white male with known left UPJ obstruction. He underwent a left pyeloplasty in 1955, but his hydronephrosis has persisted. In 2017 he reported left flank discomfort. He underwent cystoscopy, left retrograde pyelogram, left ureteroscopy, and left ureteral stent insertion in December 2017. 300 mL of urine was aspirated from the left renal pelvis. No abnormalities were seen. He recently presented back with gross hematuria. A CT scan shows what appears to be either clot or tumor within the left renal pelvis. Urine cytology is positive. Operative Findings: Over 500 mL of old dark blood aspirated from left renal pelvis. Description of Procedure: The patient was taken to the operating room and placed in the dorsolithotomy position, with legs supported in Celestino stirrups. The external genitalia was prepped and draped sterilely. The 30 lens was used to introduce the 22-[place] Storz cystoscopic sheath through the urethra and into the bladder under direct vision. The prostatic urethra showed evidence of mild lateral lobe enlargement. The bladder was examined in its entirety. Both ureteral orifices were normal anatomic location and configuration. No tumors or foreign bodies were seen. There was no evidence of hematuria. Using a 10-Burundian cone-tipped catheter, a left retrograde pyelogram was performed. The left ureter appeared normal in caliber, without filling defects. There was evidence of left UPJ obstruction, and the left intrarenal collecting system was markedly dilated. A 0.035 inch Glidewire was passed through the cystoscope. The left ureteral orifice was cannulated, and the Glidewire was advanced up to the left renal pelvis. An 11/13-Burundian ureteral access catheter was passed over the wire, up to the proximal ureter. The Olympus flexible ureteroscope was passed through the ureteral access catheter sheath. It was then advanced under direct vision into the left renal pelvis. Visualization was very poor. A 20 mL syringe was used to aspirate urine from the renal pelvis. The urine was tarry in appearance, consistent with old blood. Over 500 mL of fluid was aspirated. A portion of this was sent for cytology. Ureteroscopy was then repeated. The visualized portion of the mucosa appeared normal. However, all of the mucosa could not be visualized. Contrast was injected. Revealing dilation of the collecting system without filling defects. The ureteroscope was removed. The Glidewire was passed through the ureteral access catheter sheath, which was then removed. The Glidewire was backloaded into the cystoscope, which was passed into the bladder. A 26 cm, 6-Burundian double-J ureteral stent was placed over the wire. Proper stent positioning was verified fluoroscopically and endoscopically. The bladder was emptied and the cystoscope removed. The patient tolerated the procedure well and was taken to the recovery room in stable condition.
--- NOTE | 2020-03-20 15:35 | FL ---
EXAMINATION TYPE: FL urography retrograde DATE OF EXAM: 03/20/2020 COMPARISON: NONE HISTORY: Hydronephrosis TECHNIQUE: Fluoroscopy. FINDINGS: L KIDNEY HYDRONEPHROSIS, 1MIN FLUORO IMPRESSION: As Above.
[2020-03-20] MEDS ORDERED: IPRATROPIUM-ALBUTEROL 3 ML NEB INHALATION ONE (16:24)
[2020-03-20 17:16] VITALS: BP 139/71; PULSE 65; RESP 16
== END 2020-03-20 17:26 | disposition home or self-care (01) ==
LOC: OR 12:09
PROVIDERS: ATTEND Urology
DX: N13.0 Hydronephrosis with ureteropelvic junction obstruction (principal); J44.9 Chronic obstructive pulmonary disease, unspecified; E78.5 Hyperlipidemia, unspecified; M19.90 Unspecified osteoarthritis, unspecified site; F41.9 Anxiety disorder, unspecified; I11.0 Hypertensive heart disease with heart failure; I50.9 Heart failure, unspecified; I25.10 Atherosclerotic heart disease of native coronary artery without angina pectoris; G47.33 Obstructive sleep apnea (adult) (pediatric); Z86.73 Personal history of transient ischemic attack (TIA), and cerebral infarction without residual deficits; Z86.711 Personal history of pulmonary embolism; Z87.442 Personal history of urinary calculi; Z95.5 Presence of coronary angioplasty implant and graft; Z90.49 Acquired absence of other specified parts of digestive tract; Z96.643 Presence of artificial hip joint, bilateral; Z79.51 Long term (current) use of inhaled steroids; Z79.01 Long term (current) use of anticoagulants; Z79.82 Long term (current) use of aspirin; Z79.899 Other long term (current) drug therapy; Z88.8 Allergy status to other drugs, medicaments and biological substances; Z82.49 Family history of ischemic heart disease and other diseases of the circulatory system; Z80.3 Family history of malignant neoplasm of breast; Z99.89 Dependence on other enabling machines and devices
CPT/HCPCS: 94640; 85610; 74420; 52332; C2625; C1758; C1769; J2250; J1100; J2710; J0690; J2405; J2001; J3010; J0330; J2704; Q9967

== ENCOUNTER → 2020-04-18 | Outpatient (CLI) | payer MEDICARE ==
[2020-04-18 14:17] LABS: Basophils # (A) 0.1 k/uL (0-0.2); Basophils % (A) 1 %; Eosinophils # (A) 0.2 k/uL (0-0.7); Eosinophils % (A) 3 %; HCT 44.5 % (39.0-53.0); HGB 14.6 gm/dL (13.0-17.5); Lymphocytes # (A) 1.3 k/uL (1.0-4.8); Lymphocytes % (A) 19 %; MCHC 32.8 g/dL (31.0-37.0); MCV 91.5 fL (80.0-100.0); Mean Platelet Volume 7.3; Monocytes # (A) 0.5 k/uL (0-1.0); Monocytes % (A) 8 %; Neutrophils # (A) 4.3 k/uL (1.3-7.7); Neutrophils % (A) 65 %; Platelet Count 259 k/uL (150-450); RBC 4.86 m/uL (4.30-5.90); WBC 6.6 k/uL (3.8-10.6)
[2020-04-18 14:22] LABS: Calcium 9.1 mg/dL (8.4-10.2); Potassium 4.1 mmol/L (3.5-5.1)
== END | disposition home or self-care (01) ==
LOC: LABPAT 13:14
PROVIDERS: ATTEND Urology
DX: Z01.818 Encounter for other preprocedural examination (principal); Q62.11 Congenital occlusion of ureteropelvic junction
CPT/HCPCS: 36415; 80048; 85025

== ENCOUNTER 2020-04-26 08:16 | Inpatient (IN) | payer MEDICARE ==
[2020-04-23 15:10] VITALS: BMI 43.0
--- NOTE | 2020-04-25 09:34 | P.HPIHPCON ---
History of Present Illness H&P Date: 04/25/20 Chief Complaint: left renal mass Mr Rich is a 75 yo male with a known left UPJ obstruction. He underwent a left pyeloplasty in 1955, but his hydronephrosis has persisted. He recently presented with gross hematuria. A CT scan shows what appears to be either clot or tumor within the left renal pelvis. Urine cytology was positive. He underwent left sided ureteroscopy by Dr Cross which showed urine was tarry in appearance, consistent with old blood. Over 500 mL of fluid was aspirated, visualization was limited secondary to the hematuria, cytology was obtained at that time which showed mildly atypical urothelial cells, cannot exclude a low grade papillary urothelial neoplasm. cystoscopy showed no bladder lesion to account for the positive cytology. Discussed with him given the finding on CT which is concerning for mass within the collecting system and his positive initial cytology there is potential of transitional cell carcinoma. Discussed with him his kidney is fairly atrophic and contributing minimally to his renal function. Discussed the option of doing a left-sided nephrectomy, possible nephroureterectomy versus continued observation. Discussed the risk with observation is if this is a transitional cell carcinoma and there is a potential of developing metastatic disease. Discussed with him that there is a potential this mass on CT could be a large blood clot rather than an actual mass. He understood both options and agreed to proceed with surgical excision. I discussed will proceed with left nephrectomy and evaluate the specimen, if there is evidence of a mass then we will proceed with ureterectomy at the same setting. Discussed with him the risk which includes but not limited to bleeding, infection, injury to nearby organ. Also discussed with him given his multiple abdominal surgeries his is at an increased risk of bowel injury and complication. Also discussed with him the risk from anesthesia. He understood all the risk and agreed to proceed with robotic left-sided nephrectomy possible nephroureterectomy Consent for Procedure: I have explained the operation/procedure to the patient, including the risks, benefits, side effects, alternative therapies (including not receiving the proposed treatment or service), the likelihood of the patient achieving his/her goals, and potential recuperation problems for the procedure/sedation/analgesia, as well as any blood products, if indicated. I also explained to the patient the risks, benefits and side effects of the alternatives, as well as the risks related to not receiving the proposed procedure, care, treatment, or services. Past Medical History Past Medical History: Heart Failure, COPD, CVA/TIA, Hyperlipidemia, Hype rtension, Osteoarthritis (OA), Pulmonary Embolus (PE), Sleep Apnea/CPAP/BIPAP Additional Past Medical History / Comment(s): dry skin, ( mesothelioma-pt not sure of this), told a couple TIA's-no residual effects, "left kidney has not been working since ", kidney stone History of Any Multi-Drug Resistant Organisms: None Reported Past Surgical History: Appendectomy, Cardiac Ablation, Cardiac Valve Replacement, Heart Catheterization, Heart Catheterization With Stent, Hernia Repair, Joint Replacement, Orthopedic Surgery Additional Past Surgical History / Comment(s): adam HIP REPACEMENTS, cystoscopy, surgery for ingrown toenails adam feet, vasectomy, arthroscopy rt knee, adam carpal tunnel, two cardiac stents, "atrial valve replacement 2014(pig valve)", mult surgeries for kidney stones Past Anesthesia/Blood Transfusion Reactions: Previous Problems w/ Anesthesia Additional Past Anesthesia/Blood Transfusion Reaction / Comment(s): woke up during a cystoscopy Date of Last Stent Placement:: 2012 Smoking Status: Former smoker - Past Family History Mother Family Medical History: No Reported History Daughter(s) Family Medical History: Cancer Additional Family Medical History / Comment(s): breast Father Family Medical History: Congestive Heart Failure (CHF) Medications and Allergies Home Medications Medication Instructions Recorded Confirmed Type Aspirin 81 mg PO DAILY 10/11/14 04/23/20 History Pravastatin Sodium [Pravachol] 80 mg PO HS 10/11/14 04/23/20 History Ezetimibe [Zetia] 10 mg PO DAILY 01/11/18 04/23/20 History Furosemide [Lasix] 80 mg PO DAILY 01/11/18 04/23/20 History Warfarin Sodium [Jantoven] 3 mg PO MOFR 01/11/18 04/23/20 History Acetaminophen [Tylenol Extra 500 - 1,000 mg PO DIRECTED PRN 03/16/20 04/23/20 History Strength] Chlorpheniramine/Dextromethorp 1 each PO DIRECTED PRN 03/16/20 04/23/20 History [Coricidin Hbp Cough & Cold Tab] Latanoprost/Pf [Latanoprost 0.005% 1 drop RIGHT EYE HS 03/16/20 04/23/20 History Eye Drop] Potassium Chloride [Klor-Con 20] 20 meq PO DAILY 03/16/20 04/23/20 History Albuterol Nebulized [Ventolin 2.5 mg INHALATION QID PRN 04/23/20 04/23/20 History Nebulized] Budesonide-Formot 160-4.5 Mcg 2 puff INHALATION BID PRN 04/23/20 04/23/20 History [Symbicort 160-4.5 Mcg Inhaler] Ipratroprium Nebulizer 1 applicate IH QID PRN 04/23/20 04/23/20 History Metoprolol Tartrate [Lopressor] 12.5 mg PO BID 04/23/20 04/23/20 History Warfarin Sodium [Jantoven] 6 mg PO SUTUWETHSA 04/23/20 04/23/20 History Allergies Allergy/AdvReac Type Severity Reaction Status Date / Time atorvastatin calcium Allergy CRAMPS IN Verified 04/23/20 14:46 [From Lipitor] LEGS Surgical - Exam - General well developed, well nourished, no distress, severe distress - Eyes PERRL, normal ocular movement - ENT normal nares, normal mucosa - Respiratory normal expansion, normal respiratory effort - Abdomen Abdomen: soft, non tender - Psychiatric oriented to time, oriented to person, oriented to place Assessment and Plan Assessment: 75 yo male with left sided renal mass concerning for TCC -OR for robotic assisted left nephrectomy possible left nephroureterectomy
[~2020-04-26 08:16] MED LIST changes: +HEPARIN SODIUM,PORCINE 5,000 UNIT/ML 1 ML VIAL SQ PRN; -LACTATED RINGERS 1,000 ML IV SCH; -MIDAZOLAM 2 MG/2 ML VIAL IV PRN; -ceFAZolin 3 GM in SODIUM CHLORIDE 0.9% 100 ML IVPB ONE
[2020-04-26] MEDS: LACTATED RINGERS 1,000 ML IV SCH (08:52)
[2020-04-26 09:41] LABS: INR 1.1 (<1.2); Prothrombin Time 11.3 sec (9.0-12.0)
[2020-04-26] MEDS ORDERED: ONDANSETRON 4 MG/2 ML VIAL ONE (10:49)
[2020-04-26] MEDS ORDERED: PROPOFOL 10 MG/ML 20 ML VIAL IV ONE (10:49)
[2020-04-26] MEDS ORDERED: GLYCOPYRROLATE 0.2 MG/ML 2 ML VIAL ONE (10:49)
[2020-04-26] MEDS ORDERED: fentaNYL (PF) 50 MCG/ML 2 ML AMP ONE (10:49)
[2020-04-26] MEDS ORDERED: NEOSTIGMINE 1 MG/ML 10 ML VIAL ONE (10:49)
[2020-04-26] MEDS ORDERED: MIDAZOLAM 2 MG/2 ML VIAL ONE (10:49)
[2020-04-26] MEDS ORDERED: LIDOCAINE 1% INJ 10MG/ML (20 ML MDV) ONE (10:49)
[2020-04-26] MEDS ORDERED: ROCURONIUM 10 MG/ML (10 ML VIAL) IV ONE (10:49)
[2020-04-26] MEDS ORDERED: SUCCINYLCHOLINE CHLORIDE VIAL 200 MG/10 ML VIAL IV ONE (10:49)
[2020-04-26] MEDS ORDERED: ALBUTEROL NEBULIZED 2.5 MG/3 ML INHALATION PRN (11:02)
[2020-04-26] MEDS ORDERED: IPRATROPIUM IH PRN (11:02)
[2020-04-26] MEDS ORDERED: IPRATROPIUM-ALBUTEROL 3 ML NEB INHALATION PRN (11:39)
[2020-04-26] MEDS ORDERED: LACTATED RINGERS 1,000 ML IV ONE ×2 (12:29)
[2020-04-26] MEDS ORDERED: BUPIVACAINE (PF) 0.25% 30 ML VIAL SQ ONE ×2 (13:58)
--- NOTE | 2020-04-26 14:23 | P.OP ---
Date of Procedure: 04/26/20 Preoperative Diagnosis: left renal mass Postoperative Diagnosis: left hydronephrosis Procedure(s) Performed: Left nephrectomy, lysis of adhesions and left stent removal Implants: none Anesthesia: MALENA Surgeon: Alphonse Jarrett Half Section Ironer #1: Stephne Burger Estimated Blood Loss (ml): 100 Pathology: other (left kindey) Condition: stable Disposition: PACU Indications for Procedure: Mr Rich is a 75 yo male with a known left UPJ obstruction. He underwent a left pyeloplasty in 1955, but his hydronephrosis has persisted. He recently presented with gross hematuria. A CT scan shows what appears to be either clot or tumor within the left renal pelvis. Urine cytology was positive. He underwent left sided ureteroscopy by Dr Cross which showed urine was tarry in appearance, consistent with old blood. Over 500 mL of fluid was aspirated, visualization was limited secondary to the hematuria, cytology was obtained at that time which showed mildly atypical urothelial cells, cannot exclude a low grade papillary urothelial neoplasm. cystoscopy showed no bladder lesion to account for the positive cytology. Discussed with him given the finding on CT which is concerning for mass within the collecting system and his positive initial cytology there is potential of transitional cell carcinoma. Discussed with him his kidney is fairly atrophic and contributing minimally to his renal function. Discussed the option of doing a left-sided nephrectomy, possible nephroureterectomy versus continued observation. Discussed the risk with observation is if this is a transitional cell carcinoma and there is a potential of developing metastatic disease. Discussed with him that there is a potential this mass on CT could be a large blood clot rather than an actual mass. He understood both options and agreed to proceed with surgical excision. I discussed will proceed with left nephrectomy and evaluate the specimen, if there is evidence of a mass then we will proceed with ureterectomy at the same setting. Discussed with him the risk which includes but not limited to bleeding, infection, injury to nearby organ. Also discussed with him given his multiple abdominal surgeries his is at an increased risk of bowel injury and complication. Also discussed with him the risk from anesthesia. He understood all the risk and agreed to proceed with robotic left-sided nephrectomy possible nephroureterectomy Operative Findings: no Tumor within the left kidney Description of Procedure: The patient was taken to the operating room . General anesthesia was induced. He was prepped and draped in sterile fashion, He was placed in modified flank position . All pressure points were padded. The abdominal insufflation was achieved with the Veress needle. A 8 mm camera port was placed. Robotic trocars ports were placed under direct vision. a paramedian incision was made through the skin. Subcutaneous advanced tissue was dissected down using electrocautery. The fascia was incised, of note the mesh was encountered in the inferior portion of the incision. At this time using finger dissection some of the omen karla that was stuck to the abdominal wall was dissected off. Gel point was placed and an activities assistant port was placed through the gel point .The robot was docked into place. Patient had significant adhesion and adhesions were taken down sharply along the left upper quadrant, more than 45 minutes were spent performing lysis of adhesion. The colon was mobilized medially by incising along the white line of Toldt. Next the spleen and the pancrease were mobilized. Once the bowel, spleen and pancreas were mobilized. At this time the gonadal vessel was visualized. Of note the patient had 2 lower pole arteries both were ligated using the stapler. The ureter and gonadal vessel was retracted anteriorly off the psoas muscle. Dissection proceeded cranially towards the renal hilum. The upper pole attachments were dissected. Care was taken to safely mobilize the kidney free of all visceral structures. the renal vessels were dissected and ligated using the vascular stapler. The adrenal plan was developed and dissected off of the kidney. The lateral attachment were released, of note the patient had significant scarring laterally and posteriorly which made the dissection very challenging, as a surgical plane were not identified.. At this point gonadal and the ureter were ligated using the vascular stapler. At this time the robot was undocked and we attempted to remove the kidney through the gel point Incision, but the kidney was too large to be extracted from the gel point decision. At this time the inferior portion of the incision was further extended, and the kidney was removed through the incision. At this time the kidney was opened on the back table to assess if there is a renal tumor, no renal tumor was identified within the collecting system, only kidney stones and blood clots were visualized. At this time attention was carried to this stent, the proximal portion of the stent was within the kidney, but the distal portion of the stent was still in the ureter. The ureter was palpated, and a small incision was made in the ureter near the staple line, and the remaining of the stent was removed. Fascia was closed with #1 Stratafix in two layers. using 3-0 vicryl the subcutaneous tissue was closed. The port incision was closed with 4-0 Monocryl. The midline incision was closed with constance. 30 mL of quarter percent Marcaine was infiltrated. The patient was awoken from general anesthesia in stable condition. Please refer to the final pathology report for final diagnosis.
[2020-04-26] MEDS ORDERED: HYDROmorphone 0.5 MG/0.5 ML SYRINGE IVP ONE ×5 (14:36→15:56)
[2020-04-26] MEDS ORDERED: fentaNYL (PF) 50 MCG/ML 2 ML AMP IVP ONE ×2 (14:55→15:22)
[2020-04-26] MEDS ORDERED: LABETALOL SYRINGE 5 MG/ML IVP ONE (15:40)
[2020-04-26] MEDS: methocarbamoL 750 MG TAB PO SCH ×3 (15:46→21:23)
[2020-04-26] MEDS: HEPARIN SODIUM,PORCINE 5,000 UNIT/ML 1 ML VIAL SQ SCH (17:07)
[2020-04-26] MEDS: SYMBICORT 160-4.5 MCG INHALER INHALATION PRN (19:16)
[2020-04-26] MEDS: LATANOPROST 0.005% OPHTH DROPS 2.5 ML BTL RIGHT EYE SCH (21:23)
[2020-04-26] MEDS: PRAVASTATIN SODIUM 80 MG TAB PO SCH (21:23)
[2020-04-26] MEDS: METOPROLOL TARTRATE 12.5 MG TAB PO SCH (21:23)
[2020-04-27] MEDS: HEPARIN SODIUM,PORCINE 5,000 UNIT/ML 1 ML VIAL SQ SCH ×4 (00:04→23:18)
[2020-04-27] MEDS: traMADol 50 MG TAB PO PRN ×4 (00:30→22:07)
[2020-04-27] MEDS: HYDROmorphone 1 MG/ML 1 ML SYRINGE IVP PRN ×2 (02:24→10:35)
[2020-04-27] MEDS: LACTATED RINGERS 1,000 ML IV SCH (04:52)
[2020-04-27 06:18] LABS: Basophils # (A) 0.1 k/uL (0-0.2); Basophils % (A) 1 %; Eosinophils % (A) 0 %; HCT 39.5 % (39.0-53.0); HGB 13.1 gm/dL (13.0-17.5); Lymphocytes # (A) 1.1 k/uL (1.0-4.8); Lymphocytes % (A) 12 %; MCH 30.6 pg (25.0-35.0); MCHC 33.3 g/dL (31.0-37.0); Mean Platelet Volume 7.4; Monocytes # (A) 1.1 k/uL (0-1.0); Monocytes % (A) 11 %; Neutrophils % (A) 74 %; Platelet Count 237 k/uL (150-450); RBC 4.29 m/uL (4.30-5.90); RDW 13.6 % (11.5-15.5); WBC 9.5 k/uL (3.8-10.6)
[2020-04-27] MEDS: methocarbamoL 750 MG TAB PO SCH ×4 (07:05→22:07)
[2020-04-27] MEDS: METOPROLOL TARTRATE 12.5 MG TAB PO SCH ×2 (07:05→22:07)
[2020-04-27] MEDS: EZETIMIBE 10 MG TAB PO SCH (07:06)
[2020-04-27 07:14] LABS: Glucose,Whole Blood 157 mg/dL (75-99)
[2020-04-27] MEDS: SYMBICORT 160-4.5 MCG INHALER INHALATION PRN ×2 (08:30→20:02)
[2020-04-27] MEDS ORDERED: BENZOCAINE/MENTHOL LOZENG 1 EACH LOZENGE MUCOUS MEM PRN (10:42)
--- NOTE | 2020-04-27 10:44 | P.PN ---
Subjective Progress Note Date: 04/27/20 Principal diagnosis: POD #1, s/p robotic-assisted laparoscopic left nephrectomy The patient received regular diet for breakfast but felt he was not ready for it. He reports incisional discomfort. He denies chest pain and shortness of breath. Objective - Vital Signs Vital signs: Vital Signs Temp 97.9 F 04/27/20 07:53 Pulse 127 H 04/27/20 07:53 Resp 17 04/27/20 07:53 BP 104/72 04/27/20 07:53 Pulse Ox 92 L 04/27/20 07:53 Intake & Output 04/26/20 04/27/20 04/27/20 18:59 06:59 18:59 Intake Total 1750 118 Output Total 770 450 Balance 980 -450 118 Weight 131.2 kg 131.2 kg Intake: IV 1750 Oral 118 Output: Urine 670 450 Estimated Blood Loss 100 Other: Voiding Method Indwelling Catheter Indwelling Catheter - Constitutional General appearance: Present: cooperative, no acute distress - Gastrointestinal Gastrointestinal Comment(s): Soft, non-distended. Port incisions are clean, dry, and intact. The dressing overlying the GelPOINT incision is clean and dry. The Erwin catheter is draining slightly blood-tinged urine. - Psychiatric Psychiatric: Present: A&O x's 3, appropriate affect - Labs CBC & Chem 7: 04/27/20 06:06 Labs: Abnormal Lab Results - Last 24 Hours (Table) 04/27/20 04/27/20 Range/Units 06:06 07:13 RBC 4.29 L (4.30-5.90) m/uL Monocytes # 1.1 H (0-1.0) k/uL POC Glucose (mg/dL) 157 H (75-99) mg/dL Assessment and Plan (1) Gross hematuria Current Visit: No Status: Acute Code(s): R31.0 - GROSS HEMATURIA SNOMED Code(s): 864833535 Plan: The patient will be given full liquid diet, advance as tolerated. Cepacol lozenges have been ordered. The Erwin catheter will be removed, and ambulation was encouraged.
[2020-04-27] MEDS: PRAVASTATIN SODIUM 80 MG TAB PO SCH (22:07)
[2020-04-27] MEDS: LATANOPROST 0.005% OPHTH DROPS 2.5 ML BTL RIGHT EYE SCH (22:08)
[2020-04-28] MEDS: LACTATED RINGERS 1,000 ML IV SCH ×2 (04:56→21:39)
[2020-04-28] MEDS: EZETIMIBE 10 MG TAB PO SCH (07:30)
[2020-04-28] MEDS: METOPROLOL TARTRATE 12.5 MG TAB PO SCH ×2 (07:30→21:09)
[2020-04-28] MEDS: methocarbamoL 750 MG TAB PO SCH ×4 (07:30→21:09)
[2020-04-28] MEDS: traMADol 50 MG TAB PO PRN ×2 (07:30→21:10)
[2020-04-28] MEDS: HEPARIN SODIUM,PORCINE 5,000 UNIT/ML 1 ML VIAL SQ SCH ×3 (07:31→23:16)
[2020-04-28] MEDS: SYMBICORT 160-4.5 MCG INHALER INHALATION PRN ×2 (08:05→20:06)
--- NOTE | 2020-04-28 12:20 | P.PN ---
Subjective Progress Note Date: 04/28/20 Principal diagnosis: POD #2, s/p robotic-assisted laparoscopic left nephrectomy The patient denies nausea. He is passing small amounts of flatus. He denies nausea and vomiting. Incisional discomfort is improved. He is ambulating a small amount, and tolerating diet in small quantities. He is voiding without difficulty, and denies hematuria. Objective - Vital Signs Vital signs: Vital Signs Temp 98.4 F 04/28/20 07:58 Pulse 99 04/28/20 07:58 Resp 17 04/28/20 07:58 BP 107/60 04/28/20 07:58 Pulse Ox 95 04/28/20 07:58 Intake & Output 04/27/20 04/28/20 04/28/20 18:59 06:59 18:59 Intake Total 118 2120 Output Total 300 350 Balance -182 1770 Intake: Oral 118 2120 Output: Urine 300 350 Uretheral (Erwin) 300 Other: Voiding Method Indwelling Catheter Toilet Toilet Urinal Urinal # Voids 3 - Gastrointestinal Gastrointestinal Comment(s): Soft, non-distended. Incisions clean, dry, and intact. - Psychiatric Psychiatric: Present: A&O x's 3 - Labs CBC & Chem 7: 04/27/20 06:06 Assessment and Plan (1) Gross hematuria Current Visit: No Status: Acute Code(s): R31.0 - GROSS HEMATURIA SNOMED Code(s): 075596620 Plan: The patient was reassured that he is doing well. He will increase dietary consumption as tolerated, and increase ambulation. Discharge home tomorrow is anticipated.
[2020-04-28] MEDS: DOCUSATE 100 MG CAP PO SCH (21:09)
[2020-04-28] MEDS: PRAVASTATIN SODIUM 80 MG TAB PO SCH (21:09)
[2020-04-28] MEDS: LATANOPROST 0.005% OPHTH DROPS 2.5 ML BTL RIGHT EYE SCH (21:11)
[2020-04-29] MEDS ORDERED: ONDANSETRON 4 MG/2 ML VIAL IVP PRN (00:36)
[2020-04-29] MEDS: METOPROLOL TARTRATE 12.5 MG TAB PO SCH (06:42)
[2020-04-29] MEDS: EZETIMIBE 10 MG TAB PO SCH (06:42)
[2020-04-29] MEDS: DOCUSATE 100 MG CAP PO SCH (06:42)
[2020-04-29] MEDS: HEPARIN SODIUM,PORCINE 5,000 UNIT/ML 1 ML VIAL SQ SCH (06:42)
[2020-04-29] MEDS: methocarbamoL 750 MG TAB PO SCH (06:42)
[2020-04-29] MEDS: SYMBICORT 160-4.5 MCG INHALER INHALATION PRN (07:16)
[2020-04-29 08:35] VITALS: BP 144/78; PULSE 89; RESP 16; TEMP 98
--- NOTE | 2020-04-29 10:23 | P.DS ---
Providers Date of admission: 04/26/20 08:16 Expected date of discharge: 04/29/20 Attending physician: Alphonse Jarrett MD Primary care physician: Fady Palomares - Discharge Diagnosis(es) (1) Gross hematuria Current Visit: No Status: Acute Hospital Course: On the day of admission, the patient underwent a robotic-assisted laparoscopic left nephrectomy. The kidney was opened on the field, and did not appear to show any visible tumor. He had an unremarkable perioperative period. He remained afebrile with stable vital signs. The Erwin catheter was removed on the first postoperative day. He was subsequently able to void without difficulty, and experienced no hematuria. At the time of discharge, he was drinking without difficulty. He was tolerating diet in small amounts. He reported minimal nausea. He was passing flatus but had not had a bowel movement. The abdomen was soft and non-distended. The incisions were clean and dry. Procedures: Robotic-assisted laparoscopic left nephrectomy on 04/26/2020. Patient Condition at Discharge: Good Plan - Discharge Summary Discharge Rx Participant: No New Discharge Prescriptions: New traMADol HCL [Ultram] 50 mg PO Q6HR PRN 3 Days #12 tab PRN Reason: Moderate To Severe Pain Ondansetron Odt [Zofran Odt] 4 mg PO Q8HR PRN #6 tab PRN Reason: Nausea And Vomiting No Action Pravastatin Sodium [Pravachol] 80 mg PO HS Aspirin 81 mg PO DAILY Ezetimibe [Zetia] 10 mg PO DAILY Warfarin Sodium [Jantoven] 3 mg PO MOFR Furosemide [Lasix] 80 mg PO DAILY Chlorpheniramine/Dextromethorp [Coricidin Hbp Cough & Cold Tab] 1 each PO DIRECTED PRN PRN Reason: COUGH/COLD SX Latanoprost/Pf [Latanoprost 0.005% Eye Drop] 1 drop RIGHT EYE HS Potassium Chloride [Klor-Con 20] 20 meq PO DAILY Acetaminophen [Tylenol Extra Strength] 500 - 1,000 mg PO DIRECTED PRN PRN Reason: Pain Budesonide-Formot 160-4.5 Mcg [Symbicort 160-4.5 Mcg Inhaler] 2 puff INHALATION BID PRN PRN Reason: sob Albuterol Nebulized [Ventolin Nebulized] 2.5 mg INHALATION QID PRN PRN Reason: sob Warfarin Sodium [Jantoven] 6 mg PO SUTUWETHSA Metoprolol Tartrate [Lopressor] 12.5 mg PO BID Ipratroprium Nebulizer 1 applicate IH QID PRN PRN Reason: sob Discharge Medication List Aspirin 81 mg PO DAILY 10/11/14 [History] Pravastatin Sodium [Pravachol] 80 mg PO HS 10/11/14 [History] Ezetimibe [Zetia] 10 mg PO DAILY 01/11/18 [History] Furosemide [Lasix] 80 mg PO DAILY 01/11/18 [History] Warfarin Sodium [Jantoven] 3 mg PO MOFR 01/11/18 [History] Acetaminophen [Tylenol Extra Strength] 500 - 1,000 mg PO DIRECTED PRN 03/16/20 [History] Chlorpheniramine/Dextromethorp [Coricidin Hbp Cough & Cold Tab] 1 each PO DIRECTED PRN 03/16/20 [History] Latanoprost/Pf [Latanoprost 0.005% Eye Drop] 1 drop RIGHT EYE HS 03/16/20 [History] Potassium Chloride [Klor-Con 20] 20 meq PO DAILY 03/16/20 [History] Albuterol Nebulized [Ventolin Nebulized] 2.5 mg INHALATION QID PRN 04/23/20 [History] Budesonide-Formot 160-4.5 Mcg [Symbicort 160-4.5 Mcg Inhaler] 2 puff INHALATION BID PRN 04/23/20 [History] Ipratroprium Nebulizer 1 applicate IH QID PRN 04/23/20 [History] Metoprolol Tartrate [Lopressor] 12.5 mg PO BID 04/23/20 [History] Warfarin Sodium [Jantoven] 6 mg PO SUTUWETHSA 04/23/20 [History] Ondansetron Odt [Zofran Odt] 4 mg PO Q8HR PRN #6 tab 04/29/20 [Rx] traMADol HCL [Ultram] 50 mg PO Q6HR PRN 3 Days #12 tab 04/29/20 [Rx] Follow up Appointment(s)/Referral(s): Ted Cross MD [STAFF PHYSICIAN] - 1 Week Activity/Diet/Wound Care/Special Instructions: Diet as tolerated. Okay to shower. Drink plenty of fluids. No strenuous activity. Resume preoperative medications.
--- NOTE | 2020-05-08 05:46 | CDI ---
Documentation Clarification Form Date: 05/08/20 From: Yola Tang Phone: If you have a question about this query, please contact Shelbie Medel, Process Control Engineer at [phone] between 8am and 5pm. Admit Date: 04/26/2020 08:16:00 AM Patient Name: Bari Rich Visit Number: [id number] Discharge Date: 04/29/2020 11:44:00 AM ATTENTION: The Clinical Documentation Specialists (CDI) and [facility] Coding Staff appreciate your assistance in clarifying documentation. Please respond to the clarification below the line at the bottom and electronically sign. The CDI & [facility] Coding staff will review the response and follow-up if needed. Please note: Queries are made part of the Legal Health Record. If you have any questions, please contact the author of this message via ITS. Dr. Alphonse Jarrett, The final diagnosis of the pathology report states: LEFT KIDNEY, NEPHRECTOMY: Severe chronic pyelonephritis with scarring, atrophy and glomerulosclerosis consistent with end stage renal disease.Focally denuded urothelium with chronic inflammation and reactive changes.Negative for malignancy. Documentation states: left hydronephrosis Patient history/risk factors: HLD, COPD, sleep apnea, OA, HTN w heart failure, Hx of PE, Hx of TIA, Clinical Indicators: 75 yo male with left sided renal mass concerning for TCC - OR for robotic assisted left nephrectomy possible left nephroureterectomy. Treatment: In your professional opinion, do you agree with the pathology report specifying Severe chronic pyelonephritis with scarring, atrophy and glomerulosclerosis consistent with end stage renal disease? Yes No Other (please specify) Unable to determine Yes MTDD
== END 2020-04-29 11:44 | disposition home or self-care (01) | DRG 661 ==
LOC: 2ORMAIN 08:16 → EDSTATUS 09:15 → 4SSUR 14:23
PROVIDERS: ADMIT Urology; ATTEND Urology
DX: N13.1 Hydronephrosis with ureteral stricture, not elsewhere classified (principal); I11.0 Hypertensive heart disease with heart failure; I50.9 Heart failure, unspecified; E78.5 Hyperlipidemia, unspecified; N11.9 Chronic tubulo-interstitial nephritis, unspecified; N26.9 Renal sclerosis, unspecified; J44.9 Chronic obstructive pulmonary disease, unspecified; R31.0 Gross hematuria; G47.30 Sleep apnea, unspecified; M19.90 Unspecified osteoarthritis, unspecified site; Z79.01 Long term (current) use of anticoagulants; Z79.82 Long term (current) use of aspirin; Z79.899 Other long term (current) drug therapy; Z87.891 Personal history of nicotine dependence; Z86.73 Personal history of transient ischemic attack (TIA), and cerebral infarction without residual deficits; Z86.711 Personal history of pulmonary embolism; Z87.442 Personal history of urinary calculi; Z90.49 Acquired absence of other specified parts of digestive tract; Z87.19 Personal history of other diseases of the digestive system; Z95.2 Presence of prosthetic heart valve; Z95.5 Presence of coronary angioplasty implant and graft; Z96.643 Presence of artificial hip joint, bilateral; Z98.52 Vasectomy status; Z87.39 Personal history of other diseases of the musculoskeletal system and connective tissue; Z98.890 Other specified postprocedural states; Z80.3 Family history of malignant neoplasm of breast; Z82.49 Family history of ischemic heart disease and other diseases of the circulatory system
CPT/HCPCS: 85025; 85610; 86850; 86900; 86901; 88307; 94640; 94760

== ENCOUNTER 2020-12-25 05:50 | Inpatient (IN) | payer MEDICARE ==
--- NOTE | 2020-12-25 06:11 | ED ---
Chest Pain HPI - General Chief Complaint: Chest Pain Stated Complaint: Chest pain Time Seen by Provider: 12/25/20 05:52 Source: patient, EMS Mode of arrival: EMS Limitations: no limitations - History of Present Illness Initial Comments: This patient is 75-year-old man who presents with proximally 2 weeks of intermittent substernal chest pains. He had seen his physician and was scheduled to have follow-up cardiology appointment on Thursday. The patient states that the pain became much more severe tonight and he called EMS. EMS has given aspirin and sublingual nitroglycerin and the pain has resolved on arrival. MD Complaint: chest pain Onset/Timin -: week(s) Onset: during rest Pain Location: substernal Pain Radiation: none Severity: severe Quality: tightness Consistency: now resolved Improves With: nitroglycerin Worsens With: nothing Anginal Symptoms: dyspnea Treatments Prior to Arrival: aspirin, nitroglycerin - Related Data Home Medications Medication Instructions Recorded Confirmed Aspirin 81 mg PO DAILY 10/11/14 12/25/20 Pravastatin Sodium [Pravachol] 80 mg PO HS 10/11/14 12/25/20 Ezetimibe [Zetia] 10 mg PO DAILY 01/11/18 12/25/20 Acetaminophen [Tylenol Extra 500 - 1,000 mg PO Q6H PRN 03/16/20 12/25/20 Strength] Chlorpheniramine/Dextromethorp 1 tab PO Q6H PRN 03/16/20 12/25/20 [Coricidin Hbp Cough & Cold Tab] Latanoprost/Pf [Latanoprost 0.005% 1 drop RIGHT EYE HS 03/16/20 12/25/20 Eye Drop] Potassium Chloride [Klor-Con 20] 20 meq PO DAILY 03/16/20 12/25/20 Budesonide-Formot 160-4.5 Mcg 2 puff INHALATION RT-BID PRN 04/23/20 12/25/20 [Symbicort 160-4.5 Mcg Inhaler] Warfarin Sodium [Jantoven] 6 mg PO SUMOTUTHFRSA 04/23/20 12/25/20 Albuterol Sulfate [Ventolin HFA] 1 - 2 puff INHALATION RT-QID PRN 12/25/20 12/25/20 Furosemide [Lasix] 80 mg PO DAILY 12/25/20 12/25/20 Isosorbide Mononitrate ER [Imdur] 30 mg PO DAILY 12/25/20 12/25/20 Metoprolol Succinate (ER) [Toprol 50 mg PO BID 12/25/20 12/25/20 Xl] Warfarin Sodium [Jantoven] 3 mg PO WE 12/25/20 12/25/20 Previous Rx's Medication Instructions Recorded Nitroglycerin Sl Tabs [Nitrostat] 0.4 mg SUBLINGUAL Q5M PRN #25 tab 12/26/20 Allergies Allergy/AdvReac Type Severity Reaction Status Date / Time atorvastatin calcium AdvReac CRAMPS IN Verified 12/25/20 07:03 [From Lipitor] LEGS Review of Systems ROS Statement: Those systems with pertinent positive or pertinent negative responses have been documented in the HPI. ROS Other: All systems not noted in ROS Statement are negative. Constitutional: Denies: fever, chills Respiratory: Reports: dyspnea. Denies: cough Cardiovascular: Reports: chest pain. Denies: palpitations, orthopnea, edema, syncope Gastrointestinal: Reports: abdominal pain. Denies: nausea, vomiting, diarrhea Genitourinary: Denies: dysuria, hematuria Musculoskeletal: Denies: back pain Skin: Denies: rash Neurological: Denies: headache, weakness, numbness EKG Findings - EKG Results: EKG: interpreted by ERMD, sinus rhythm - Blocks, Ward, Hypertrophy, ST Abn: AV and intraventricular conduction: 1 AV block, right bundle branch block (fixed/intermittent, complete/incomplete), left anterior fascicular block Past Medical History Past Medical History: COPD, CVA/TIA, Hyperlipidemia, Hypertension, Osteoarthritis (OA), Pulmonary Embolus (PE) Additional Past Medical History / Comment(s): Stated a couple TIA's - no residual effects History of Any Multi-Drug Resistant Organisms: None Reported Past Surgical History: Appendectomy, Heart Catheterization With Stent, Hernia Repair, Joint Replacement, Orthopedic Surgery Additional Past Surgical History / Comment(s): Bilateral hip replacements, cystoscopy, surgery for ingrown toenails adam feet, vasectomy, arthroscopy rt knee, adam carpal tunnel, two cardiac stents, "atrial valve replacement 2014 (pig valve)", mult surgeries for kidney stones Past Anesthesia/Blood Transfusion Reactions: Previous Problems w/ Anesthesia Additional Past Anesthesia/Blood Transfusion Reaction / Comment(s): woke up during a cystoscopy Date of Last Stent Placement:: 12/16/12 Past Psychological History: Anxiety Smoking Status: Former smoker Past Alcohol Use History: Rare Past Drug Use History: None Reported - Past Family History Daughter(s) Family Medical History: Cancer Additional Family Medical History / Comment(s): breast General Exam Limitations: no limitations General appearance: alert, in no apparent distress Head exam: Present: atraumatic, normocephalic Eye exam: Present: normal appearance. Absent: scleral icterus, conjunctival injection ENT exam: Present: normal oropharynx Neck exam: Present: normal inspection Respiratory exam: Present: normal lung sounds bilaterally. Absent: respiratory distress, wheezes, rales, rhonchi, stridor Cardiovascular Exam: Present: regular rate, normal rhythm, normal heart sounds. Absent: systolic murmur, diastolic murmur, rubs, gallop GI/Abdominal exam: Present: soft. Absent: distended, tenderness, guarding, rebound, rigid, mass Extremities exam: Present: normal inspection, normal capillary refill. Absent: pedal edema, calf tenderness Back exam: Present: normal inspection. Absent: CVA tenderness (R), CVA tenderness (L) Neurological exam: Present: alert Skin exam: Present: warm, dry, intact, normal color. Absent: rash Course Vital Signs 12/25/20 12/25/20 12/25/20 05:50 07:45 10:03 Temperature 98.4 F Pulse Rate 64 84 81 Respiratory 18 18 18 Rate Blood Pressure 122/86 111/64 117/84 O2 Sat by Pulse 93 L 95 96 Oximetry 12/25/20 12/25/20 10:57 14:04 Temperature Pulse Rate 79 74 Respiratory 18 18 Rate Blood Pressure 88/68 92/60 O2 Sat by Pulse 97 96 Oximetry - Reevaluation(s) Reevaluation #1: 12/25/20 07:36 Patient is 75-year-old man here with recurring intermittent chest pain over past 2 weeks. I did receive a call from lab that his troponin was elevated and reevaluated the patient. The patient states that his pain has recurred. ECG is repeated which does show some less than [address] elevations anterior leads V4 V5. Heparin ordered, additional nitrates and analgesics. Cardiology was paged. 12/25/20 07:47 Critical Care Time Critical Care Time: Yes (35 minutes) Disposition Clinical Impression: Acute coronary syndrome with high troponin Disposition: ADMITTED IP TO THIS HOSP Condition: Serious Is patient prescribed a controlled substance at d/c from ED?: No
[2020-12-25] MEDS ORDERED: NITROGLYCERIN OINT 1 INCH/GM PACKET TOPICAL STA (06:13)
[2020-12-25 06:28] LABS: Basophils % (A) 1 %; Eosinophils # (A) 0.1 k/uL (0-0.7); Eosinophils % (A) 2 %; HCT 42.7 % (39.0-53.0); HGB 15.7 gm/dL (13.0-17.5); Lymphocytes # (A) 1.3 k/uL (1.0-4.8); Lymphocytes % (A) 21 %; MCH 35.1 pg (25.0-35.0); MCHC 36.8 g/dL (31.0-37.0); MCV 95.2 fL (80.0-100.0); Mean Platelet Volume 8.5; Monocytes # (A) 0.4 k/uL (0-1.0); Monocytes % (A) 6 %; Neutrophils % (A) 68 %; Platelet Count 184 k/uL (150-450); RBC 4.49 m/uL (4.30-5.90); RDW 14.3 % (11.5-15.5)
[2020-12-25 06:44] LABS: INR 2.9 (<1.2); Partial Thromboplastin Time 32.4 sec (22.0-30.0); Prothrombin Time 28.3 sec (9.0-12.0)
--- NOTE | 2020-12-25 06:49 | XR ---
EXAMINATION TYPE: XR chest 2V DATE OF EXAM: 12/25/2020 COMPARISON: Chest x-ray October 05, 2014. CTA chest August 28, 2014 HISTORY: Chest pain. TECHNIQUE: Frontal and lateral views of the chest are obtained. FINDINGS: Background chronic parenchymal changes and elevated left hemidiaphragm redemonstrated. The re is no suspicious new focal air space opacity, pleural effusion, or pneumothorax seen. The cardiac silhouette size remains within normal limits. Multilevel spurring in thoracic spine redemonstrated. Osseous structures are demineralized. IMPRESSION: Chronic changes without acute pulmonary process.
[2020-12-25 06:54] LABS: Albumin 4.5 g/dL (3.5-5.0); Calcium 9.4 mg/dL (8.4-10.2); Magnesium 2.2 mg/dL (1.6-2.3); Potassium 4.2 mmol/L (3.5-5.1); Total Bilirubin 0.6 mg/dL (0.2-1.3); Total Protein 7.6 g/dL (6.3-8.2)
[2020-12-25] MEDS ORDERED: HEPARIN SODIUM 1,000 UN/ML (10ML VL) IV ONE (07:16)
[2020-12-25] MEDS ORDERED: HEPARIN SODIUM 1,000 UN/ML (10ML VL) IV PRN (07:16)
[2020-12-25] MEDS ORDERED: MORPHINE SULFATE 4 MG/ML SYRINGE IV STA (07:17)
[2020-12-25] MEDS ORDERED: NITROGLYCERIN SL TABS 0.4 MG TAB SUBLINGUAL PRN (07:30)
[2020-12-25] MEDS ORDERED: SODIUM CHLORIDE 0.9% 1,000 ML IV SCH (07:30)
[2020-12-25] MEDS: HEPARIN SOD,PORK IN 0.45% NACL 25,000 UNIT in 0.45% NACL 1 250ML.BAG IV SCH (07:36)
[2020-12-25] MEDS ORDERED: ACETAMINOPHEN TAB 500 MG TAB PO PRN (08:38)
--- NOTE | 2020-12-25 08:50 | P.CRDCN ---
History of Present Illness Consult date: 12/25/20 Chief complaint: Chest pain History of present illness: This is a very pleasant 75-year-old gentleman who sees Dr. Harman regularly with a past medical history significant for valvular heart disease and status post aortic valve replacement was performed at [facility] and that was performed minimally invasive as well as coronary artery disease as well as hypertension and dyslipidemia and chronic kidney disease and status post left nephrectomy. The patient also did have history of PE and currently he is on anticoagulation was Coumadin. The patient presented to the emergency department complaining of chest discomfort. He stated that the chest discomfort started about a week ago. He describes intermittent episodes of the chest discomfort in the middle of the chest without any radiation to the arms or neck or shoulders or back.If his symptoms of sweating or dizziness or lightheadedness or any presyncope or syncope. When the chest discomfort started it was intermittent and exertion-related only but for the last 24 hours it was increasing in terms of frequency and intensity and as a matter of fact when the patient was seen in the emergency department he was having mild ongoing chest discomfort about 2/10 in intensity which was quite decreased since he presented to the emergency department. The EKG showed sinus rhythm with a Q wave inferiorly and first- degree AV block. The troponin came in to be also elevated. His kidney function is abnormal and he is known to have chronic kidney disease and history of left nephrectomy not related to cancer. Beside that his INR is elevated as well because he was receiving Coumadin as an outpatient for history of pulmonary embolism. Past Medical History Past Medical History: COPD, CVA/TIA, Hyperlipidemia, Hypertension, Osteoarthritis (OA), Pulmonary Embolus (PE) Additional Past Medical History / Comment(s): Stated a couple TIA's - no residual effects History of Any Multi-Drug Resistant Organisms: None Reported Past Surgical History: Appendectomy, Heart Catheterization With Stent, Hernia Repair, Joint Replacement, Orthopedic Surgery Additional Past Surgical History / Comment(s): Bilateral hip replacements, cystoscopy, surgery for ingrown toenails adam feet, vasectomy, arthroscopy rt knee, adam carpal tunnel, two cardiac stents, "atrial valve replacement 2014 (pig valve)", mult surgeries for kidney stones Past Anesthesia/Blood Transfusion Reactions: Previous Problems w/ Anesthesia Additional Past Anesthesia/Blood Transfusion Reaction / Comment(s): woke up during a cystoscopy Date of Last Stent Placement:: 8/22/13 Past Psychological History: Anxiety Smoking Status: Former smoker Past Alcohol Use History: Rare Past Drug Use History: None Reported - Past Family History Daughter(s) Family Medical History: Cancer Additional Family Medical History / Comment(s): breast Medications and Allergies Home Medications Medication Instructions Recorded Confirmed Type Aspirin 81 mg PO DAILY 10/11/14 12/25/20 History Pravastatin Sodium [Pravachol] 80 mg PO HS 10/11/14 12/25/20 History Ezetimibe [Zetia] 10 mg PO DAILY 01/11/18 12/25/20 History Acetaminophen [Tylenol Extra 500 - 1,000 mg PO Q6H PRN 03/16/20 12/25/20 History Strength] Chlorpheniramine/Dextromethorp 1 tab PO Q6H PRN 03/16/20 12/25/20 History [Coricidin Hbp Cough & Cold Tab] Latanoprost/Pf [Latanoprost 0.005% 1 drop RIGHT EYE HS 03/16/20 12/25/20 History Eye Drop] Potassium Chloride [Klor-Con 20] 20 meq PO DAILY 03/16/20 12/25/20 History Budesonide-Formot 160-4.5 Mcg 2 puff INHALATION RT-BID PRN 04/23/20 12/25/20 History [Symbicort 160-4.5 Mcg Inhaler] Warfarin Sodium [Jantoven] 6 mg PO SUMOTUTHFRSA 04/23/20 12/25/20 History Albuterol Sulfate [Ventolin HFA] 1 - 2 puff INHALATION RT-QID PRN 12/25/20 12/25/20 History Furosemide [Lasix] 80 mg PO DAILY 12/25/20 12/25/20 History Isosorbide Mononitrate ER [Imdur] 30 mg PO DAILY 12/25/20 12/25/20 History Metoprolol Succinate (ER) [Toprol 50 mg PO BID 12/25/20 12/25/20 History Xl] Warfarin Sodium [Jantoven] 3 mg PO WE 12/25/20 12/25/20 History Allergies Allergy/AdvReac Type Severity Reaction Status Date / Time atorvastatin calcium AdvReac CRAMPS IN Verified 12/25/20 07:03 [From Lipitor] LEGS Physical Exam Vitals: Vital Signs Temp Pulse Resp BP Pulse Ox 12/25/20 07:45 84 18 111/64 95 12/25/20 05:50 98.4 F 64 18 122/86 93 L Intake and Output 12/24/20 12/25/20 12/25/20 22:59 06:59 14:59 Other: Weight 133.356 kg - Constitutional General appearance: no acute distress - Respiratory Respiratory: bilateral: diminished - Cardiovascular Rhythm: regular Heart sounds: normal: S1, S2 Abnormal Heart Sounds: systolic murmur Results 12/25/20 06:17 12/25/20 06:17 Cardiac Enzymes 12/25/20 12/25/20 Range/Units 06:17 06:17 AST 73 H (17-59) U/L Troponin I 2.620 H* (0.000-0.034) ng/mL Coagulation 12/25/20 Range/Units 06:17 PT 28.3 H (9.0-12.0) sec APTT 32.4 H (22.0-30.0) sec CBC 12/25/20 Range/Units 06:17 WBC 6.0 (3.8-10.6) k/uL RBC 4.49 (4.30-5.90) m/uL Hgb 15.7 (13.0-17.5) gm/dL Hct 42.7 (39.0-53.0) % Plt Count 184 (150-450) k/uL Comprehensive Metabolic Panel 12/25/20 Range/Units 06:17 Sodium 138 (137-145) mmol/L Potassium 4.2 (3.5-5.1) mmol/L Chloride 106 (98-107) mmol/L Carbon Dioxide 23 (22-30) mmol/L BUN 23 H (9-20) mg/dL Creatinine 1.31 H (0.66-1.25) mg/dL Glucose 132 H (74-99) mg/dL Calcium 9.4 (8.4-10.2) mg/dL AST 73 H (17-59) U/L ALT 33 (4-49) U/L Alkaline Phosphatase 147 H (38-126) U/L Total Protein 7.6 (6.3-8.2) g/dL Albumin 4.5 (3.5-5.0) g/dL Current Medications Generic Name Dose Route Start Last Admin Trade Name Yoko PRN Reason Stop Dose Admin Aspirin 325 mg 12/26/20 09:00 Aspirin 325 Mg Tab PO DAILY MART Heparin Sodium (Porcine) 0 unit 12/25/20 07:16 Heparin Sodium 1,000 Un/Ml (10ml Vl) IV PER PROTOCOL PRN Low PTT Protocol Heparin Sodium/Sodium Chloride 250 mls @ 9.988 mls/hr 12/25/20 07:30 12/25/20 07:36 25,000 unit/ Sodium Chloride IV 7.49 units/kg/hr .Q24H MART 9.988 mls/hr Administration Protocol 7.49 UNITS/KG/HR Sodium Chloride 1,000 mls @ 100 mls/hr 12/25/20 07:30 12/25/20 07:40 Saline 0.9% IV 100 mls/hr .Q10H MART Administration Nitroglycerin 0.4 mg 12/25/20 07:30 Nitroglycerin Sl Tabs 0.4 Mg Tab SUBLINGUAL Q5M PRN Chest Pain Intake and Output 12/24/20 12/25/20 12/25/20 22:59 06:59 14:59 Other: Weight 133.356 kg 12/25/20 06:17 12/25/20 06:17 Assessment and Plan Assessment: Assessment #1 acute non-ST deviation myocardial infarction #2 chronic kidney disease #3 history of left nephrectomy #4 valvular heart disease and status post minimally invasive aortic valve replacement #5 hypertension #6 dyslipidemia Plan #1 consider invasive strategy in the next 12-24 hours giving the abnormal creatinine and elevated INR #2 consider immediate invasive strategy if the chest discomfort gets worse #3 continue antiplatelet with aspirin. #4 continue high intensity statin #5 continue IV heparin for now #6 obtain an echocardiogram was Doppler #7 consider IV nitroglycerin and titrate that for the chest discomfort #8 continue beta ashley with Toprol-XL Thank you for allowing us participate in his care
[2020-12-25] MEDS ORDERED: NITROGLYCERIN-D5W PMX 50 MG in DEXTROSE/WATER 1 250ML.BAG IV SCH ×2 (09:30→20:45)
[2020-12-25] MEDS: ASPIRIN 81 MG PO SCH (09:31)
[2020-12-25] MEDS: SODIUM CHLORIDE 0.9% 1,000 ML IV SCH (10:02)
[2020-12-25] MEDS: METOPROLOL SUCCINATE (ER) 50 MG TAB.ER.24H PO SCH ×2 (10:03→19:40)
[2020-12-25] MEDS: EZETIMIBE 10 MG TAB PO SCH (10:04)
[2020-12-25] MEDS: ISOSORBIDE MONONITRATE ER 30 MG TAB.ER.24H PO SCH (10:04)
--- NOTE | 2020-12-25 13:18 | P.HPIM ---
History of Present Illness H&P Date: 12/25/20 HISTORY OF PRESENT ILLNESS This is a 75-year-old male patient of Dr. Dr. Palomares with past medical history for hypertension, hyperlipidemia, valvular heart disease status post aortic valve replacement done at [facility], minimally invasive procedure in 2015, coronary artery disease with previous stent, paroxysmal atrial fibrillation, chronic diastolic heart failure, COPD, obstructive sleep apnea, pulmonary embolism on Coumadin, chronic kidney disease stage III status post left nephrectomy. Patient states that he developed chest pain approximately 2 weeks ago[address] He saw Dr. Harman about that time and he added Imdur 30 mg daily which she has been taking for the last 10 days. He states he does not think it made any difference for his chest pain. Yesterday he developed chest pain that was worse than he had had, heavier in the center on the left side of his chest with radiation to the base of his neck along with shortness of breath. No diaphoresis. Patient came into [facility] emergency center for evaluation. EKG was sinus rhythm with Q waves inferiorly and first-degree AV block. CBC was unremarkable. Electrolytes were normal. BUN 23 creatinine 1.31, blood sugar 132, alkaline phosphatase 147. Troponin 2.6-0. Chest x-ray reveals chronic changes without acute pulmonary process. Patient admitted to the cardiac stepdown unit, consult with Dr. Paola rothman, heparin drip, patient scheduled for heart catheterization tomorrow while monitoring renal function closely. REVIEW OF SYSTEMS Constitutional: No fever, no chills, no night sweats. No weight change. No weakness, fatigue or lethargy. No daytime sleepiness. EENT: No headache. No blurred vision or double vision, no loss of vision. No loss of Hearing, no ringing in the ears, no dizziness. No nasal drainage or congestion. No epistaxis. No sore throat. Lungs: No shortness of breath, cough, no sputum production. No wheezing. Cardiovascular: Reports chest pain, no lower extremity edema. No palpitations. No paroxysmal nocturnal dyspnea. No orthopnea. No lightheadedness or dizziness. No syncopal episodes. Abdominal: No abdominal pain. No nausea, vomiting. No diarrhea. No constipation. No bloody or tarry stools. No loss of appetite. Genitourinary: No dysuria, increased frequency, urgency. No urinary retention. Musculoskeletal: No myalgias. No muscle weakness, no gait dysfunction, no frequent falls. No back pain. No neck pain. Integumentary: No wounds, no lesions. No rash or pruritus. No unusual bruising. No change in hair or nails. Neurologic: No aphasia. No facial droop. No change in mentation. No head injury. No headache. No paralysis. No paresthesia. Psychiatric: No depression. No anxiety. No mood swings. Endocrine: No abnormal blood sugars. No weight change. No excessive sweating or thirst. No cold intolerance. MEDICAL HISTORY Hypertension Hyperlipidemia Valvular heart disease status post aortic valve replacement Coronary artery disease Paroxysmal atrial fibrillation Chronic diastolic heart disease COPD Obstructive sleep apnea Pulmonary embolism on Coumadin Chronic kidney disease stage 3 status post left nephrectomy Glaucoma SURGICAL HISTORY Inguinal hernia repair, bilateral Cystoscopies multiple Vasectomy Right knee arthroscopic surgery Carpal tunnel release bilaterally Bilateral hip replacements Appendectomy Coronary stents 2 in 2012 Heart catheterization in 2014 YULIYA 2014 Cystoscopy with lithotripsy in 2014 Aortic valve replacement 2014 Coronary ablation 2016 Cystoscopy with laser lithotripsy and stone removal in 2017 Left nephrectomy March 2020 SOCIAL HISTORY Patient was a smoker 2 packs per day for 14 years and quit in 1989. Patient is a and lives alone. FAMILY HISTORY Father at age 92 from CHF and history of Paget disease and hypertension. Mother at age 51 from liver cirrhosis. Patient has 2 brothers and one has history of asthma and coronary artery disease. Second brother has history of hypertension and coronary artery disease. Patient has 1 sister alive at age 62 is overweight. Patient has 1 son that at age 42 from alcohol co mplications. Patient has 1 daughter who is a nurse. PHYSICAL EXAMINATION Gen: This is a morbidly obese 75-year-old male, resting in the ER stretcher and appears to be comfortable and in no acute distress. HEENT: Head is atraumatic, normocephalic. Pupils equal, round. Sclerae is anicteric. NECK: Supple. No JVD. No lymphadenopathy. No thyromegaly. LUNGS: Diminished breath sounds throughout but otherwise clear to auscultation. No wheezes or rhonchi. No intercostal retractions. HEART: Regular rate and rhythm. 2/6 systolic ejection murmur at the left sternal border. ABDOMEN: Soft. Bowel sounds are present. No masses. No tenderness. No hepatosplenomegaly. EXTREMITIES: No pedal edema. No calf tenderness. Dorsalis pedis +2 bilaterally NEUROLOGICAL: Patient is awake, alert and oriented x3. Cranial nerves 2 through 12 are grossly intact. ASSESSMENT AND PLAN 1. Acute non-ST elevated myocardial infarction. Cardiology consult prabhjot bowen. Patient is scheduled for heart catheterization tomorrow, continue IV heparin drip, echocardiogram, lipid panel, repeat troponin, nitroglycerin. Continue aspirin 81 mg daily, Zetia 10 mg daily, Imdur 30 mg daily, Toprol-XL 50 mg twice daily, morphine IV as needed for pain, pravastatin 80 mg at bedtime. Continue IV fluids at 75 mL per hour and hold Lasix and potassium, monitor renal function. 2. Hypertension. Continue Toprol-XL, Imdur. 3. Hyperlipidemia. Continue pravastatin. 4. Valvular heart disease status post aortic valve replacement, minimal invasive procedure done at [facility], stable. Hold Coumadin, monitor INR. Lasix and potassium on hold. 5. History of coronary artery disease status post coronary stenting. Continue as in #1. 6. Paroxysmal atrial fibrillation. 7. Chronic diastolic heart failure. Hold Lasix and potassium. 8. COPD, stable without exacerbation. Continue Symbicort 2 puffs twice daily. 9. Obstructive sleep apnea. Continue CPAP. 10. Pulmonary embolism on chronic Coumadin. Coumadin on hold, continue heparin drip. Monitor INR. 11. Chronic kidney disease status post left nephrectomy. Monitor renal function, avoid nephrotoxic agents. Hold Lasix and potassium. Continue IV fluids or 0.9 normal saline at 75 mL per hour. 12. Glaucoma. Continue eyedrops. 13. GI prophylaxis. Protonix. 14. DVT prophylaxis. Heparin drip. Patient will be admitted to the hospital for a minimum of 2 night stay. DISCHARGE PLAN Home. Impression and plan of care have been directed as dictated by the signing physician. Naty Mclean nurse practitioner acting as scribe for signing physician. Past Medical History Past Medical History: COPD, CVA/TIA, Hyperlipidemia, Hypertension, Osteoarthritis (OA), Pulmonary Embolus (PE) Additional Past Medical History / Comment(s): Stated a couple TIA's - no residual effects History of Any Multi-Drug Resistant Organisms: None Reported Past Surgical History: Appendectomy, Heart Catheterization With Stent, Hernia Repair, Joint Replacement, Orthopedic Surgery Additional Past Surgical History / Comment(s): Bilateral hip replacements, cystoscopy, surgery for ingrown toenails adam feet, vasectomy, arthroscopy rt knee, adam carpal tunnel, two cardiac stents, "atrial valve replacement 2014 (pig valve)", mult surgeries for kidney stones Past Anesthesia/Blood Transfusion Reactions: Previous Problems w/ Anesthesia Additional Past Anesthesia/Blood Transfusion Reaction / Comment(s): woke up during a cystoscopy Date of Last Stent Placement:: 12/16/12 Past Psychological History: Anxiety Smoking Status: Former smoker Past Alcohol Use History: Rare Past Drug Use History: None Reported - Past Family History Daughter(s) Family Medical History: Cancer Additional Family Medical History / Comment(s): breast Medications and Allergies Home Medications Medication Instructions Recorded Confirmed Type Aspirin 81 mg PO DAILY 10/11/14 12/25/20 History Pravastatin Sodium [Pravachol] 80 mg PO HS 10/11/14 12/25/20 History Ezetimibe [Zetia] 10 mg PO DAILY 01/11/18 12/25/20 History Acetaminophen [Tylenol Extra 500 - 1,000 mg PO Q6H PRN 03/16/20 12/25/20 History Strength] Chlorpheniramine/Dextromethorp 1 tab PO Q6H PRN 03/16/20 12/25/20 History [Coricidin Hbp Cough & Cold Tab] Latanoprost/Pf [Latanoprost 0.005% 1 drop RIGHT EYE HS 03/16/20 12/25/20 History Eye Drop] Potassium Chloride [Klor-Con 20] 20 meq PO DAILY 03/16/20 12/25/20 History Budesonide-Formot 160-4.5 Mcg 2 puff INHALATION RT-BID PRN 04/23/20 12/25/20 History [Symbicort 160-4.5 Mcg Inhaler] Warfarin Sodium [Jantoven] 6 mg PO SUMOTUTHFRSA 04/23/20 12/25/20 History Albuterol Sulfate [Ventolin HFA] 1 - 2 puff INHALATION RT-QID PRN 12/25/20 12/25/20 History Furosemide [Lasix] 80 mg PO DAILY 12/25/20 12/25/20 History Isosorbide Mononitrate ER [Imdur] 30 mg PO DAILY 12/25/20 12/25/20 History Metoprolol Succinate (ER) [Toprol 50 mg PO BID 12/25/20 12/25/20 History Xl] Warfarin Sodium [Jantoven] 3 mg PO WE 12/25/20 12/25/20 History Nitroglycerin Sl Tabs [Nitrostat] 0.4 mg SUBLINGUAL Q5M PRN #25 tab 12/26/20 Rx Allergies Allergy/AdvReac Type Severity Reaction Status Date / Time atorvastatin calcium AdvReac CRAMPS IN Verified 12/25/20 07:03 [From Lipitor] LEGS Physical Exam Vitals: Vital Signs Temp Pulse Resp BP Pulse Ox 12/25/20 07:45 84 18 111/64 95 12/25/20 05:50 98.4 F 64 18 122/86 93 L Intake and Output 12/24/20 12/25/20 12/25/20 22:59 06:59 14:59 Other: Weight 133.356 kg Results CBC & Chem 7: 12/25/20 06:17 12/26/20 06:47 Labs: Abnormal Lab Results - Last 24 Hours (Table) 12/25/20 12/25/20 12/25/20 Range/Units 06:17 06:17 06:17 MCH 35.1 H (25.0-35.0) pg PT 28.3 H (9.0-12.0) sec INR 2.9 H (<1.2) APTT 32.4 H (22.0-30.0) sec BUN 23 H (9-20) mg/dL Creatinine 1.31 H (0.66-1.25) mg/dL Glucose 132 H (74-99) mg/dL AST 73 H (17-59) U/L Alkaline Phosphatase 147 H (38-126) U/L Troponin I (0.000-0.034) ng/mL 12/25/20 Range/Units 06:17 MCH (25.0-35.0) pg PT (9.0-12.0) sec INR (<1.2) APTT (22.0-30.0) sec BUN (9-20) mg/dL Creatinine (0.66-1.25) mg/dL Glucose (74-99) mg/dL AST (17-59) U/L Alkaline Phosphatase (38-126) U/L Troponin I 2.620 H* (0.000-0.034) ng/mL
[2020-12-25] MEDS: ALBUTEROL NEBULIZED 2.5 MG/3 ML INHALATION PRN ×2 (15:32→19:19)
--- NOTE | 2020-12-25 16:38 | ECHOF ---
Referral Reason:ACS MEASUREMENTS -------- HEIGHT: 172.7 cm WEIGHT: 133.4 kg BP: 111/64 IVSd: 1.5 cm (0.6 - 1.1) LVIDd: 5.4 cm (3.9 - 5.3) LVPWd: 1.5 cm (0.6 - 1.1) EDV(Teich): 142 ml IVSs: 2.1 cm LVIDs: 3.5 cm LVPWs: 2.0 cm %IVS Thck: 42 % ESV(Teich): 53 ml EF(Teich): 63 % %FS: 34 % SV(Teich): 89 ml LA Diam: 3.8 cm (2.7 - 3.8) RVIDd: 2.9 cm (< 3.3) LALs A4C: 5.7 cm LAAs A4C: 21.6 cm LAESV A-L A4C: 69 ml LAESV MOD A4C: 65 ml LALs A2C: 6.0 cm LAAs A2C: 22.3 cm LAESV A-L A2C: 70 ml LAESV MOD A2C: 68 ml LAESV(A-L): 71 ml LAESV Index (A-L): 29.56 ml/m EPSS: 1.6 cm MV E Alli: 0.82 m/s MV DecT: 183 ms MV Dec [place]: 4.4 m/s MV A Alli: 0.86 m/s MV E/A Ratio: 0.94 MV PHT: 53 ms LVOT Vmax: 0.77 m/s LVOT maxP.37 mmHg AV Vmax: 2.00 m/s AV maxP.96 mmHg AV Vmax: 2.04 m/s AV Vmean: 1.43 m/s AV maxP.59 mmHg AV meanP.11 mmHg AV Env.Ti: 295 ms AV VTI: 42.3 cm MV EF SLOPE: 74.44 mm/s (70 - 150) MV EXCURSION: 16.05 mm (> 18.000) FINDINGS -------- Sinus rhythm. This was a technically difficult study with suboptimal views. The left ventricular size is normal. There is moderate concentric left ventricular hypertrophy. O verall left ventricular systolic function is mild-moderately impaired with, an EF between 40 - 45 %. Apical anterior LV wall motion is hypokinetic. Apical lateral LV wall motion is hypokinetic. Apical inferior LV wall motion is hypokinetic. Apical septum LV wall motion is hypokinetic. The right ventricle is normal in size. LA is midly dilated 29-33ml/m2. The right atrium is normal in size. 5 ml of Lumason was utilized for enhancement of images. Interatrial and interventricular septum intact. There is mild aortic valve sclerosis. There is mild aortic stenosis present. Peak/mean gradient a cross the Aortic Valve is 16.59mmHg / 9.11mmHg. Mild mitral annular calcification present. The tricuspid valve appears structurally normal. Unable to estimate RVSP due to inadequate TR jet s pectral doppler profile. The pulmonic valve was not well visualized. AO root not visualized Normal inferior vena cava with normal inspiratory collapse consistent with estimated right atrial pre ssure of 5 mmHg. There is no pericardial effusion. CONCLUSIONS -------- 1. The left ventricular size is normal. 2. There is moderate concentric left ventricular hypertrophy. 3. Overall left ventricular systolic function is mild-moderately impaired with, an EF between 40 - 45 %. 4. Apical anterior LV wall motion is hypokinetic. 5. Apical lateral LV wall motion is hypokinetic. 6. Apical inferior LV wall motion is hypokinetic. 7. Apical septum LV wall motion is hypokinetic. 8. LA is midly dilated 29-33ml/m2. 9. 5 ml of Lumason was utilized for enhancement of images. 10. There is mild aortic valve sclerosis. 11. There is mild aortic stenosis present. 12. Peak/mean gradient across the Aortic Valve is 16.59mmHg / 9.11mmHg. 13. Mild mitral annular calcification present. 14. AO root not visualized 15. There is no pericardial effusion. HIGH SCHOOL LIBRARIAN: Angela Webb, MICHAELCS
[2020-12-25] MEDS: SYMBICORT 160-4.5 MCG INHALER INHALATION PRN (19:20)
[2020-12-25] MEDS: LATANOPROST 0.005% OPHTH DROPS 2.5 ML BTL RIGHT EYE SCH (19:40)
[2020-12-25] MEDS: PRAVASTATIN SODIUM 80 MG TAB PO SCH (19:41)
[2020-12-26] MEDS: SODIUM CHLORIDE 0.9% 1,000 ML IV SCH ×2 (02:45→15:58)
[2020-12-26] MEDS: ASPIRIN 81 MG PO SCH (05:37)
[2020-12-26] MEDS: ISOSORBIDE MONONITRATE ER 30 MG TAB.ER.24H PO SCH (05:38)
[2020-12-26] MEDS: METOPROLOL SUCCINATE (ER) 50 MG TAB.ER.24H PO SCH ×2 (05:38→19:50)
[2020-12-26 07:39] LABS: INR 2.7 (<1.2); Partial Thromboplastin Time 44.4 sec (22.0-30.0); Prothrombin Time 26.4 sec (9.0-12.0)
[2020-12-26] MEDS: ALBUTEROL NEBULIZED 2.5 MG/3 ML INHALATION PRN ×4 (07:39→19:58)
[2020-12-26] MEDS: SYMBICORT 160-4.5 MCG INHALER INHALATION PRN (07:39)
[2020-12-26 08:16] LABS: Calcium 8.8 mg/dL (8.4-10.2); Potassium 4.4 mmol/L (3.5-5.1)
[2020-12-26] MEDS: HEPARIN SOD,PORK IN 0.45% NACL 25,000 UNIT in 0.45% NACL 1 250ML.BAG IV SCH (08:23)
--- NOTE | 2020-12-26 08:58 | P.PN ---
Subjective Progress Note Date: 12/26/20 HISTORY OF PRESENT ILLNESS This is a 75-year-old male patient of Dr. Dr. Palomares with past medical history for hypertension, hyperlipidemia, valvular heart disease status post aortic valve replacement done at [facility], minimally invasive procedure in 2015, coronary artery disease with previous stent, paroxysmal atrial fibrillation, chronic diastolic heart failure, COPD, obstructive sleep apnea, pulmonary embolism on Coumadin, chronic kidney disease stage III status post left nephrectomy. Patient states that he developed chest pain approximately 2 weeks ago[address] He saw Dr. Harman about that time and he added Imdur 30 mg daily which she has been taking for the last 10 days. He states he does not think it made any difference for his chest pain. Yesterday he developed chest pain that was worse than he had had, heavier in the center on the left side of his chest with radiation to the base of his neck along with shortness of breath. No diaphoresis. Patient came into [facility] emergency center for evaluation. EKG was sinus rhythm with Q waves inferiorly and first-degree AV block. CBC was unremarkable. Electrolytes were normal. BUN 23 creatinine 1.31, blood sugar 132, alkaline phosphatase 147. Troponin 2.6-0. Chest x-ray reveals chronic changes without acute pulmonary process. Patient admitted to the cardiac stepdown unit, consult with Dr. Paola rothman, heparin drip, patient scheduled for heart catheterization tomorrow while monitoring renal function closely. 12/26: The patient states he does not have any chest pain at this time but he does have some discomfort at the base of his neck. He was started on nitroglycerin drip last night and continued on heparin drip. He is tentatively scheduled for heart catheterization today. Repeat blood work reveals INR is 2.7. Electrolytes are normal. BUN 22 and creatinine 1.28. Blood sugar 131. Repeat troponins yesterday were 3.160 and 4.210. Patient's daughter is at the bedside and updated, all questions have been answered. Anticipate heart catheterization today. REVIEW OF SYSTEMS Constitutional: No fever, no chills, no night sweats. No weight change. No weakness, fatigue or lethargy. No daytime sleepiness. EENT: No headache. No blurred vision or double vision, no loss of vision. No loss of Hearing, no ringing in the ears, no dizziness. No nasal drainage or congestion. No epistaxis. No sore throat. Lungs: No shortness of breath, cough, no sputum production. No wheezing. Cardiovascular: Reports chest pain, no lower extremity edema. No palpitations. No paroxysmal nocturnal dyspnea. No orthopnea. No lightheadedness or dizzine ss. No syncopal episodes. Abdominal: No abdominal pain. No nausea, vomiting. No diarrhea. No con stipation. No bloody or tarry stools. No loss of appetite. Genitourinary: No dysuria, increased frequency, urgency. No urinary retention. Musculoskeletal: No myalgias. No muscle weakness, no gait dysfunction, no frequent falls. No back pain. No neck pain. Integumentary: No wounds, no lesions. No rash or pruritus. No unusual bruising. No change in hair or nails. Neurologic: No aphasia. No facial droop. No change in mentation. No head injury. No headache. No paralysis. No paresthesia. Psychiatric: No depression. No anxiety. No mood swings. Endocrine: No abnormal blood sugars. No weight change. No excessive sweating or thirst. No cold intolerance. PHYSICAL EXAMINATION Gen: This is a morbidly obese 75-year-old male, resting in bed and appears to be comfortable and in no acute distress. HEENT: Head is atraumatic, normocephalic. Pupils equal, round. Sclerae is anicteric. NECK: Supple. No JVD. No lymphadenopathy. No thyromegaly. LUNGS: Diminished breath sounds throughout but otherwise clear to auscultation. No wheezes or rhonchi. No intercostal retractions. HEART: Regular rate and rhythm. 2/6 systolic ejection murmur at the left sternal border. ABDOMEN: Soft. Bowel sounds are present. No masses. No tenderness. No hepatosplenomegaly. EXTREMITIES: No pedal edema. No calf tenderness. Dorsalis pedis +2 bilaterally NEUROLOGICAL: Patient is awake, alert and oriented x3. Cranial nerves 2 through 12 are grossly intact. ASSESSMENT AND PLAN 1. Acute non-ST elevated myocardial infarction. Cardiology consult appre ciaandrés. Patient is scheduled for heart catheterization tentatively for today, continue IV heparin drip, echocardiogram, lipid panel, repeat troponin, nitroglycerin. Continue aspirin 81 mg daily, Zetia 10 mg daily, Imdur 30 mg daily, Toprol-XL 50 mg twice daily, morphine IV as needed for pain, pravastatin 80 mg at bedtime. Continue IV fluids at 75 mL per hour and hold Lasix and potassium, monitor renal function. Patient has been started on nitroglycerin drip. 2. Hypertension. Continue Toprol-XL, Imdur. 3. Hyperlipidemia. Continue pravastatin. 4. Valvular heart disease status post aortic valve replacement, minimal invasive procedure done at [facility], stable. Hold Coumadin, continue heparin drip, monitor INR. Lasix and potassium on hold. 5. History of coronary artery disease status post coronary stenting. Continue as in #1. 6. Paroxysmal atrial fibrillation. 7. Chronic diastolic heart failure. Hold Lasix and potassium. 8. COPD, stable without exacerbation. Continue Symbicort 2 puffs twice daily. 9. Obstructive sleep apnea. Continue CPAP. 10. Pulmonary embolism on chronic Coumadin. Coumadin on hold, continue heparin drip. Monitor INR. 11. Chronic kidney disease status post left nephrectomy. Monitor renal function, avoid nephrotoxic agents. Hold Lasix and potassium. Continue IV fluids or 0.9 normal saline at 75 mL per hour. 12. Glaucoma. Continue eyedrops. 13. GI prophylaxis. Protonix. 14. DVT prophylaxis. Heparin drip. DISCHARGE PLAN Home. Impression and plan of care have been directed as dictated by the signing physician. Naty Mclean nurse practitioner acting as scribe for signing physician. Objective - Vital Signs Vital signs: Vital Signs Temp 97.7 F 12/26/20 03:51 Pulse 76 12/26/20 07:50 Resp 16 12/26/20 03:51 BP 120/70 12/26/20 03:51 Pulse Ox 94 L 12/26/20 03:51 Intake & Output 12/25/20 12/26/20 12/26/20 18:59 06:59 18:59 Weight 133.356 kg 130.6 kg Other: # Voids 0 1 - Labs CBC & Chem 7: 12/25/20 06:17 12/26/20 06:47 Labs: Abnormal Lab Results - Last 24 Hours (Table) 12/25/20 12/25/20 12/25/20 Range/Units 08:56 12:50 12:50 PT (9.0-12.0) sec INR (<1.2) APTT 52.2 H (22.0-30.0) sec Troponin I 3.160 H* 4.210 H* (0.000-0.034) ng/mL 12/25/20 12/26/20 Range/Units 18:49 06:47 PT 26.4 H (9.0-12.0) sec INR 2.7 H (<1.2) APTT 46.7 H 44.4 H (22.0-30.0) sec Troponin I (0.000-0.034) ng/mL
[2020-12-26] MEDS ORDERED: ASPIRIN 325 MG TAB PO SCH (09:00)
[2020-12-26] MEDS: EZETIMIBE 10 MG TAB PO SCH (09:09)
[2020-12-26] MEDS ORDERED: ALPRAZolam 0.5 MG TAB PO PRN (10:34)
[2020-12-26] MEDS ORDERED: ALPRAZolam 0.25 MG TAB PO PRN (10:34)
--- NOTE | 2020-12-26 11:43 | P.PN ---
Subjective This is a pleasant 75-year-old male past medical history significant for coronary artery disease status post PCI ostial PLB and mid RCA in 2012, hype rtension, dyslipidemia,valvular heart disease and status post aortic valve replacement was performed at [facility] in 2014, chronic kidney disease status post left nephrectomy, history of pulmonary embolism and currently is on anticoagulation with Coumadin. He follows in the office with Dr. Harman We have been asked to see in consultation for chest pain. Patient presented to the emergency department on 12/25. The EKG showed sinus rhythm with a Q wave inferiorly and first-degree AV block. Troponin 2.6, 3.1, 4.2. His INR was 2.9 and serum creatinine was 1.31. Patient was diagnosed with NSTEMI and cardiac cathterization was recommended within 12-24 hours given the patients abnormal creatinine and elevated INR. 12/26/20 Patient seen and examined at bedside. He had increased chest pain overnight, and was started on nitroglyercin drip which helped relieve his pain.his echocardiogram revealed left ventricular systolic function is mild to moderately impaired with EF of 40-45% with wall motional abnormalities, mild aortic stenosis with peak/mean gradient of 16 mmHg/9 mmHg. He is currently chest pain free. He does have some shortness of breath. Blood pressure 121/62, heart rate 80, afebrile, maintaining oxygen saturations 96% on 2 L nasal cannula. Laboratory data reviewed INR 2.7, sodium 137, potassium 4.4, BUN 22, serum creatinine 1.28.patient currently maintained on aspirin 81 mg daily, Zetia 10 mg daily, IV heparin drip, Imdur 30 mg daily, metoprolol succinate 50 mg twice a day, atorvastatin 80 mg nightly, and IV fluids. PHYSICAL EXAMINATION CONSTITUTIONAL: No apparent distress. HEENT: Head is normocephalic. Pupils are equal, round. Sclerae anicteric. Mucous membranes of the mouth are moist. CHEST EXAMINATION: Lungs are diminished bilaterally to auscultation. No chest wall tenderness is noted on palpation or with deep breathing. HEART EXAMINATION: Regular rate and rhythm. S1, S2 heard. Systolic murmur noted at right sternal border ABDOMEN: Soft, nontender. Positive bowel sounds. EXTREMITIES: 2+ peripheral pulses, no lower extremity edema and no calf tender ness. NEUROLOGIC EXAMINATION: Patient is awake, alert and oriented x3. ASSESSMENT NSTEMI Coronary artery disease status post PCI ostial PLB and mid RCA in 2013 Hypertension Dyslipidemia Aortic valve disease s/p aortic valve replacement at [facility] in 2014 Chronic kidney disease status post left nephrectomy History of pulmonary embolism-at home is on anticoagulation with Coumadin PLAN We will plan for cardiac catheterization with Dr. Harman today. Patient is agreeable to procedure I have discussed the risks, benefits and alternative therapies for the above- mentioned procedure and for both sedation/analgesia as well as necessary blood product administration, if indicated, as they pertain to this patient. The patient has indicated understanding and acceptance of the risks and procedures discussed. Questions have been answered appropriately and he is agreeable to move forward with the above-stated procedure. Further recommendations based on clinical course Nurse Practitioner note has been reviewed, I agree with a documented findings and plan of care. Patient was seen and examined. Objective - Vital Signs Vital signs: Vital Signs Temp 98.0 F 12/26/20 08:21 Pulse 68 12/26/20 11:14 Resp 18 12/26/20 08:21 BP 121/62 12/26/20 08:21 Pulse Ox 96 12/26/20 08:21 Intake & Output 12/25/20 12/26/20 12/26/20 18:59 06:59 18:59 Intake Total 275.336 Balance 275.336 Weight 133.356 kg 130.6 kg Intake: Intake, IV Titration 275.336 Amount Heparin Sod,Pork in 0.45% 275.336 NaCl 25,000 unit In 0.45 % NaCl 1 250ml.bag @ 7.49 UNITS/KG/HR 9.988 mls/hr IV .Q24H [facility] Rx#: [id number] Other: # Voids 0 1 - Labs CBC & Chem 7: 12/25/20 06:17 12/26/20 06:47 Labs: Abnormal Lab Results - Last 24 Hours (Table) 12/25/20 12/25/20 12/25/20 Range/Units 12:50 12:50 18:49 PT (9.0-12.0) sec INR (<1.2) APTT 52.2 H 46.7 H (22.0-30.0) sec BUN (9-20) mg/dL Creatinine (0.66-1.25) mg/dL Glucose (74-99) mg/dL Troponin I 4.210 H* (0.000-0.034) ng/mL 12/26/20 12/26/20 Range/Units 06:47 06:47 PT 26.4 H (9.0-12.0) sec INR 2.7 H (<1.2) APTT 44.4 H (22.0-30.0) sec BUN 22 H (9-20) mg/dL Creatinine 1.28 H (0.66-1.25) mg/dL Glucose 131 H (74-99) mg/dL Troponin I (0.000-0.034) ng/mL
[2020-12-26 11:58] LABS: Chol/HDL Ratio 2.73; LDL Cholesterol,Calculated 63.6 mg/dL (0.0-131.0); VLDL Calculation 21.4 mg/dL (5.00-40.00)
[2020-12-26] MEDS ORDERED: fentaNYL (PF) 50 MCG/ML 2 ML AMP ONE (13:37)
[2020-12-26] MEDS ORDERED: fentaNYL (PF) 50 MCG/ML 2 ML AMP IV ONE (13:40)
[2020-12-26] MEDS ORDERED: LIDOCAINE 1% INJ 10MG/ML (20 ML MDV) SQ ONE (13:41)
[2020-12-26] MEDS ORDERED: IV FLUID CONTINUATION 950 ML IV ONE (13:42)
[2020-12-26] MEDS ORDERED: VERAPAMIL SYRINGE (5 MG/10 ML) INTRAARTER ONE (13:47)
[2020-12-26] MEDS: MIDAZOLAM 2 MG/2 ML VIAL IV ONE ×2 (13:48→14:31)
[2020-12-26] MEDS ORDERED: HEPARIN SODIUM 1,000 UN/ML (10ML VL) ONE (13:48)
[2020-12-26] MEDS ORDERED: PRASUGREL 10 MG TAB ONE ×2 (13:51→13:52)
[2020-12-26] MEDS: HEPARIN SODIUM 1,000 UN/ML (10ML VL) IV ONE ×2 (13:52→13:55)
[2020-12-26] MEDS ORDERED: PRASUGREL 10 MG TAB PO ONE (13:55)
[2020-12-26] MEDS ORDERED: NITROGLYCERIN 1000MCG/10ML SYRINGE INTRACORON ONE (14:09)
[2020-12-26] MEDS ORDERED: IOPAMIDOL-370 125ML BTL INJ ONE (14:10)
[2020-12-26] MEDS ORDERED: niCARdipine 25 MG/10 ML VIAL ONE (14:17)
[2020-12-26] MEDS ORDERED: niCARdipine 25 MG/10 ML VIAL INTRACORON ONE (14:20)
[2020-12-26] MEDS ORDERED: niCARdipine Syringe (1,000 mcg/10 mL) INTRACORON ONE (14:20)
[2020-12-26] MEDS ORDERED: IOPAMIDOL-370 100ML BTL INJ ONE ×2 (14:25→14:49)
[2020-12-26] MEDS ORDERED: NITROGLYCERIN SL TABS 0.4 MG TAB SUBLINGUAL PRN (15:09)
[2020-12-26] MEDS ORDERED: ZOLPIDEM 5 MG TAB PO PRN (15:09)
[2020-12-26] MEDS ORDERED: RX INFO: IV CONTRAST WAS GIVEN 1 EACH MISC MISCELLANE PRN (15:09)
[2020-12-26] MEDS ORDERED: ATROPINE SULFATE 0.1 MG/ML 10ML SYRINGE IV PRN (15:09)
[2020-12-26] MEDS ORDERED: MAG HYDROX/AL HYDROX/SIMETH 30 ML CUP PO PRN (15:09)
[2020-12-26] MEDS ORDERED: SODIUM CHLORIDE 0.9% 1,000 ML IV SCH (15:15)
[2020-12-26] MEDS ORDERED: MORPHINE SULFATE 2 MG/ML SYRINGE IVP STA (16:10)
[2020-12-26] MEDS ORDERED: FUROSEMIDE 10 MG/ML 2 ML VIAL IV ONE (16:11)
[2020-12-26] MEDS: PRAVASTATIN SODIUM 80 MG TAB PO SCH (19:50)
[2020-12-26] MEDS: LATANOPROST 0.005% OPHTH DROPS 2.5 ML BTL RIGHT EYE SCH (19:51)
[2020-12-26] MEDS: SYMBICORT 160-4.5 MCG INHALER INHALATION SCH (19:56)
--- NOTE | 2020-12-26 21:46 | CC ---
CARDIAC CATHETERIZATION REPORT Mr. Rich is a 75-year-old male with a known history of coronary artery disease, history of prior percutaneous revascularization to the right coronary artery in 2013, aortic valve replacement in 2015 who presented with symptoms of chest pain and non-ST- segment-elevation myocardial infarction. In view of that, recommendation was made regarding cardiac catheterization. The procedure as well as its risks and the complications were discussed with the patient, who was in full understanding and agreement. PROCEDURE NOTE: Patient was brought to the laboratory cureman in a fasting, semi-sedated state after receiving fentanyl and Benadryl and achieving a moderate conscious sedated state. Using Xylocaine anesthesia and Seldinger technique, a 6-[place] sheath was introduced in the right radial artery. Selective right and left coronary angiography was performed using 5- [place] 4 bend right Madhav and 3-1/2 bend left Madhav catheter. Multiple views were taken of the coronary arteries, including hemiaxial views. Following that, catheters were removed and images were reviewed. FINDINGS: LEFT MAIN: This is a large-sized vessel bifurcating into left circumflex and left anterior descending artery. Left main has a 10% plaque distally. LEFT ANTERIOR DESCENDING ARTERY: This vessel gives rise to two diagonal branches. The proximal segment of the LAD has a 20% to 30% plaque at the takeoff of the second diagonal branch that is moderate in caliber. There is a 99% stenosis with slow flow distally. LEFT CIRCUMFLEX: This is a nondominant vessel giving rise to three obtuse marginal branches. The first and the third are largest in caliber. The left circumflex has intimal disease throughout its mid course of about 20% to 30% without any evidence of high-grade stenosis. RIGHT CORONARY ARTERY: This is a large dominant vessel bifurcating distally into PDA and posterolateral segment and branches. The mid right coronary artery is patent. The stented segment has a 20% stenosis. The distal vessel has mild intimal disease without any evidence of high-grade stenosis. LEFT VENTRICULOGRAM: Left ventriculogram was not performed. CONCLUSION: 1. Subtotally occluded mid LAD involving the second diagonal branch with slow flow. 2. Mild to moderate disease in the circumflex and the right coronary artery with patent stents in the RCA. RECOMMENDATIONS: In view of findings and anatomy, I have recommended proceeding with angioplasty and stenting of the LAD. The procedure as well as its risks and the complications were discussed with the patient, who is in full understanding and agreement. MMODL / IJN: [id number] /
--- NOTE | 2020-12-26 21:50 | PTCA ---
PERCUTANEOUSTRANS CORORONARY ANGIOGRAPHY DATE OF PROCEDURE: 12/26/2020 Mr. Rich is a 75-year-old male with a known history of coronary artery disease who has been complaining of symptoms of chest discomfort and had evidence of ouq-HI-smcyswe- elevation myocardial infarction, underwent cardiac catheterization and was found to have subtotally occluded mid LAD. In view of that, recommendation was made regarding angioplasty and stenting. The procedure as well as its risks and the complications were discussed with the patient, who was in full understanding and agreement. PROCEDURE NOTE: A 6-[place] EBU 3.75 guiding catheter was introduced into the system. After cannulating the left main, a 0.014 balanced medium weight J-wire was advanced across the lesion and positioned distally. Subsequently a 2.5 x 12 mm NC Trek balloon was advanced and two inflations at maximum of 8 atmospheres were done. Following that, the balloon was removed and a 2.75 x 15 mm Xience Skypoint stent was advanced, deployed and post- dilated at 16 atmospheres. Following that the balloon was removed and another 2.75 x 12 mm Xience Skypoint stent was deployed proximal to the first one and post-dilated at 16 atmospheres and inflation in the overlap segment at 16 atmospheres was done. Following that the balloon was removed. There was no flow in the second diagonal branch, and multiple attempts to cannulate the diagonal branch using another 0.014 balanced medium weight J-wire as well as a Whisper J-wire were unsuccessful. There was slow retrograde flow filling the diagonal branch. At that point the guiding catheter, the balloon and the guidewire were removed. The sheath was removed. Hemostasis was obtained with deployment of a TR band. There was no immediate complication. Patient was returned to his room in stable condition. Of note, the patient had EKG changes that resolved during the procedure. He had chest discomfort during the inflation that improved at the end of the procedure. He received 8000 units intravenous heparin as well as intra- arterial verapamil, intra coronaries nicardipine. He received an oral loading dose of Effient. RESULTS: Successful stenting of the mid LAD with reduction of stenosis from 99% to 0%. RECOMMENDATIONS: Patient will be continued on aspirin, Effient, beta ashley, SNOW inhibitor and statin. The importance of dual antiplatelet treatment was discussed with the patient and his family, and they are in full understanding and agreement. Duration of sedation was 73 minutes. is. SHAREEL / IJN: [id number] /
--- NOTE | 2020-12-26 21:54 | LTR ---
December 26, 2020 To: Dr. Palomares Re: Bari Rich 45) Dear Dr. Palomares, I had the pleasure of performing cardiac catheterization and coronary angioplasty and stenting on Mr. Rich at [facility] on December 26. A full copy of the procedure note will be forwarded to you. In brief, he was found to have subtotally occluded mid LAD and underwent successful stenting of that vessel. I am hopeful that this procedure will stabilize his status. Thank you again for allowing me to participate in this patient's care. Please feel free to call with any questions. Sincerely, Ariel Harman M.D. TON / JERMAINE: [id number] /
[2020-12-27] MEDS: SODIUM CHLORIDE 0.9% 1,000 ML IV SCH (05:59)
[2020-12-27] MEDS ORDERED: HEPARIN SODIUM,PORCINE 2,500 UNIT in SODIUM CHLORIDE 0.9% 250 ML IRRIGATION PRN (07:00)
[2020-12-27] MEDS ORDERED: HEPARIN SODIUM,PORCINE 10,000 UNIT in SODIUM CHLORIDE 0.9% 1,000 ML IRRIGATION PRN (07:00)
[2020-12-27 07:56] LABS: Calcium 9.3 mg/dL (8.4-10.2); Potassium 4.6 mmol/L (3.5-5.1)
[2020-12-27 07:59] LABS: INR 2.4 (<1.2)
[2020-12-27 08:16] LABS: HCT 44.1 % (39.0-53.0); HGB 15.3 gm/dL (13.0-17.5); MCH 32.4 pg (25.0-35.0); MCHC 34.7 g/dL (31.0-37.0); MCV 93.6 fL (80.0-100.0); Mean Platelet Volume 7.5; Platelet Count 219 k/uL (150-450); RBC 4.71 m/uL (4.30-5.90); RDW 14.1 % (11.5-15.5)
[2020-12-27] MEDS: SYMBICORT 160-4.5 MCG INHALER INHALATION SCH ×2 (08:28→19:45)
[2020-12-27] MEDS ORDERED: FUROSEMIDE 10 MG/ML 2 ML VIAL IV STA (08:28)
[2020-12-27] MEDS: ALBUTEROL NEBULIZED 2.5 MG/3 ML INHALATION PRN ×4 (08:28→19:44)
--- NOTE | 2020-12-27 09:04 | P.PN ---
Subjective Progress Note Date: 12/27/20 HISTORY OF PRESENT ILLNESS This is a 75-year-old male patient of Dr. Dr. Palomares with past medical history for hypertension, hyperlipidemia, valvular heart disease status post aortic valve replacement done at [facility], minimally invasive procedure in 2015, coronary artery disease with previous stent, paroxysmal atrial fibrillation, chronic diastolic heart failure, COPD, obstructive sleep apnea, pulmonary embolism on Coumadin, chronic kidney disease stage III status post left nephrectomy. Patient states that he developed chest pain approximately 2 weeks ago[address] He saw Dr. Harman about that time and he added Imdur 30 mg daily which she has been taking for the last 10 days. He states he does not think it made any difference for his chest pain. Yesterday he developed chest pain that was worse than he had had, heavier in the center on the left side of his chest with radiation to the base of his neck along with shortness of breath. No diaphoresis. Patient came into [facility] emergency center for evaluation. EKG was sinus rhythm with Q waves inferiorly and first-degree AV block. CBC was unremarkable. Electrolytes were normal. BUN 23 creatinine 1.31, blood sugar 132, alkaline phosphatase 147. Troponin 2.6-0. Chest x-ray reveals chronic changes without acute pulmonary process. Patient admitted to the cardiac stepdown unit, consult with Dr. Paola rothman, heparin drip, patient scheduled for heart catheterization tomorrow while monitoring renal function closely. 12/26: The patient states he does not have any chest pain at this time but he does have some discomfort at the base of his neck. He was started on nitroglycerin drip last night and continued on heparin drip. He is tentatively scheduled for heart catheterization today. Repeat blood work reveals INR is 2.7. Electrolytes are normal. BUN 22 and creatinine 1.28. Blood sugar 131. Repeat troponins yesterday were 3.160 and 4.210. Patient's daughter is at the bedside and updated, all questions have been answered. Anticipate heart catheterization today. 12/27: Patient underwent heart catheterization yesterday with Dr. Harman which revealed subtotal occluded mid LAD involving the second diagonal branch and slow flow. Mild to moderate disease in the circumflex and the right coronary artery with patent stents in the RCA. Patient's subsequent May underwent PTCA and stenting of the mid LAD. He is maintained on aspirin, Effient, beta ashley, SNOW inhibitor and statin. Patient also transition from Coumadin to eliquis, Aldactone 25 mg daily has been started. Patient is observed walking from the bathroom to chair and has shortness of breath with activity. Noted wheezing and she is due for nebulizer treatment. IV fluids discontinued and one dose of IV L asix 20 mg ordered. Patient has been afebrile, heart rate 82, blood pressure 140/77, pulse ox 97% on 2 L nasal cannula. Repeat blood work reveals CBC unremarkable. INR 2.4. Electrolytes are normal, BUN 19 and creatinine 1.25. Blood sugar 106. Plan is to monitor patient overnight and possible discharge for tomorrow. Echocardiogram reveals EF of 40-45% with moderate concentric left ventricular hypertrophy, mild aortic stenosis, mild mitral calcification. REVIEW OF SYSTEMS Constitutional: No fever, no chills, no night sweats. No weight change. No weakness, fatigue or lethargy. No daytime sleepiness. EENT: No headache. No blurred vision or double vision, no loss of vision. No loss of Hearing, no ringing in the ears, no dizziness. No nasal drainage or congestion. No epistaxis. No sore throat. Lungs: No shortness of breath, cough, no sputum production. No wheezing. Cardiovascular: Reports chest pain, no lower extremity edema. No palpitations. No paroxysmal nocturnal dyspnea. No orthopnea. No lightheadedness or dizziness. No syncopal episodes. Abdominal: No abdominal pain. No nausea, vomiting. No diarrhea. No constipation. No bloody or tarry stools. No loss of appetite. Genitourinary: No dysuria, increased frequency, urgency. No urinary retention. Musculoskeletal: No myalgias. No muscle weakness, no gait dysfunction, no frequent falls. No back pain. No neck pain. Integumentary: No wounds, no lesions. No rash or pruritus. No unusual bruising. No change in hair or nails. Neurologic: No aphasia. No facial droop. No change in mentation. No head injury. No headache. No paralysis. No paresthesia. Psychiatric: No depression. No anxiety. No mood swings. Endocrine: No abnormal blood sugars. No weight change. No excessive sweating or thirst. No cold intolerance. PHYSICAL EXAMINATION Gen: This is a morbidly obese 75-year-old male, resting in bed and appears to be comfortable and in no acute distress. HEENT: Head is atraumatic, normocephalic. Pupils equal, round. Sclerae is anicteric. NECK: Supple. No JVD. No lymphadenopathy. No thyromegaly. LUNGS: Diminished breath sounds throughout but otherwise clear to auscultation. No wheezes or rhonchi. No intercostal retractions. HEART: Regular rate and rhythm. 2/6 systolic ejection murmur at the left sternal border. ABDOMEN: Soft. Bowel sounds are present. No masses. No tenderness. No hepatosplenomegaly. EXTREMITIES: No pedal edema. No calf tenderness. Dorsalis pedis +2 bilaterally NEUROLOGICAL: Patient is awake, alert and oriented x3. Cranial nerves 2 through 12 are grossly intact. ASSESSMENT AND PLAN 1. Acute non-ST elevated myocardial infarction. Cardiology consult appreciated. Patient is status post heart catheterization and stent of the LAD. Continue aspirin 81 mg daily, Imdur 30 mg daily, Toprol-XL 50 mg twice daily, Effient 10 mg daily, Pravachol 80 mg at bedtime. Discontinue IV fluids, 1 dose of IV Lasix. 2. Hypertension. Continue Toprol-XL, Imdur. 3. Hyperlipidemia. Continue pravastatin. 4. Valvular heart disease status post aortic valve replacement, minimal invasive procedure done at [facility], stable. Lasix 20 mg IV push 1. 5. History of coronary artery disease status post coronary stenting. Continue as in #1. 6. Paroxysmal atrial fibrillation. Continue metoprolol, patient started on eliquis. 7. Chronic diastolic heart failure. Resume Lasix and started on Aldactone 25 mg daily. 8. COPD, stable without exacerbation. Continue Symbicort 2 puffs twice daily. 9. Obstructive sleep apnea. Continue CPAP. 10. Pulmonary embolism on chronic Coumadin. Eliquis. 11. Chronic kidney disease status post left nephrectomy. Monitor renal functio n, avoid nephrotoxic agents. Resume Lasix. Discontinue IV fluids 12. Glaucoma. Continue eyedrops. 13. GI prophylaxis. Protonix. 14. DVT prophylaxis. Eliquis. DISCHARGE PLAN Home on Thursday. Impression and plan of care have been directed as dictated by the signing physician. Naty Mclean nurse practitioner acting as scribe for signing physician. Objective - Vital Signs Vital signs: Vital Signs Temp 98.3 F 09/02/21 04:00 Pulse 82 12/27/20 04:00 Resp 18 12/27/20 04:00 BP 140/77 12/27/20 04:00 Pulse Ox 97 12/27/20 04:00 Intake & Output 12/26/20 12/27/20 12/27/20 18:59 06:59 18:59 Intake Total 425.336 Output Total 600 500 Balance -174.664 -500 Weight 129.2 kg Intake: IV 150 Intake, IV Titration 275.336 Amount Heparin Sod,Pork in 0.45% 275.336 NaCl 25,000 unit In 0.45 % NaCl 1 250ml.bag @ 7.49 UNITS/KG/HR 9.988 mls/hr IV .Q24H [facility] Rx#: [id number] Oral 0 Output: Urine 600 500 Other: # Voids 1 - Labs CBC & Chem 7: 12/27/20 07:16 12/27/20 07:16 Labs: Abnormal Lab Results - Last 24 Hours (Table) 12/27/20 12/27/20 Range/Units 07:16 07:16 PT 23.0 H (9.0-12.0) sec INR 2.4 H (<1.2) Glucose 106 H (74-99) mg/dL
[2020-12-27] MEDS: ISOSORBIDE MONONITRATE ER 30 MG TAB.ER.24H PO SCH (09:16)
[2020-12-27] MEDS: METOPROLOL SUCCINATE (ER) 50 MG TAB.ER.24H PO SCH ×2 (09:16→21:15)
[2020-12-27] MEDS: PRASUGREL 10 MG TAB PO SCH (09:16)
[2020-12-27] MEDS: ASPIRIN 81 MG PO SCH (09:16)
[2020-12-27] MEDS: SPIRONOLACTONE 25 MG TAB PO SCH (09:16)
[2020-12-27] MEDS: APIXABAN 5 MG TAB PO SCH ×2 (09:16→19:44)
[2020-12-27] MEDS: EZETIMIBE 10 MG TAB PO SCH (09:16)
[2020-12-27] MEDS: lisinopriL 5 MG TAB PO SCH ×2 (09:16→19:44)
[2020-12-27 10:49] VITALS: BMI 43.2
--- NOTE | 2020-12-27 12:18 | P.PN ---
Subjective Progress Note Date: 12/27/20 Principal diagnosis: Acute coronary event This is a pleasant 75-year-old gentleman with coronary artery disease and valvular heart disease as well as hypertension and dyslipidemia who was admitted to the hospital with chest discomfort and ruled in for acute coronary event. He underwent heart catheterization and was found to have severe disease involving the LAD. He underwent successful stenting of the mid LAD. He was seen this morning. He denies any chest pain or chest discomfort but does have shortness of breath with exertion by only walking to the bathroom been on examination he does have crackles most prominent on the right side than the left side. He was given a dose of Lasix IV area to the point to stop the Lasix by mouth and start the patient on Lasix IV for at least 24 hours. We'll continue monitor the kidney function and electrolytes. He is currently on triple therapy because he does have history of pulmonary embolism and he is on oral anticoagulation. Objective - Vital Signs Vital signs: Vital Signs Temp 98.0 F 12/27/20 11:58 Pulse 91 12/27/20 11:58 Resp 18 12/27/20 11:58 BP 126/69 12/27/20 11:58 Pulse Ox 96 12/27/20 11:58 Intake & Output 12/26/20 12/27/20 12/27/20 18:59 06:59 18:59 Intake Total 425.336 118 Output Total 600 500 Balance -174.664 -500 118 Weight 129.2 kg 129.2 kg Intake: IV 150 Intake, IV Titration 275.336 Amount Heparin Sod,Pork in 0.45% 275.336 NaCl 25,000 unit In 0.45 % NaCl 1 250ml.bag @ 7.49 UNITS/KG/HR 9.988 mls/hr IV .Q24H [facility] Rx#: [id number] Oral 0 118 Output: Urine 600 500 Other: # Voids 1 - Constitutional General appearance: Present: no acute distress - Respiratory Respiratory: bilateral: rales - Cardiovascular Rhythm: regular Heart sounds: normal: S1, S2 - Labs CBC & Chem 7: 12/27/20 07:16 12/27/20 07:16 Labs: Abnormal Lab Results - Last 24 Hours (Table) 12/27/20 12/27/20 Range/Units 07:16 07:16 PT 23.0 H (9.0-12.0) sec INR 2.4 H (<1.2) Glucose 106 H (74-99) mg/dL Assessment and Plan Assessment: Assessment #1 acute non-ST deviation myocardial infarction and status post PCI of the LAD #2 chronic kidney disease #3 history of left nephrectomy #4 valvular heart disease and status post minimally invasive aortic valve replacement #5 hypertension #6 dyslipidemia Plan #1 DC Lasix IV and start the patient on Lasix by mouth #2 monitor the kidney function and electrolytes #3 continue the triple therapy #4 follow-up with the patient
[2020-12-27] MEDS: PRAVASTATIN SODIUM 80 MG TAB PO SCH (19:44)
[2020-12-27] MEDS: FUROSEMIDE 10 MG/ML 4 ML VIAL IV SCH (19:44)
[2020-12-27] MEDS: LATANOPROST 0.005% OPHTH DROPS 2.5 ML BTL RIGHT EYE SCH (19:45)
[2020-12-28 03:32] VITALS: RESP 16
[2020-12-28 07:20] LABS: Calcium 8.7 mg/dL (8.4-10.2)
[2020-12-28 08:18] VITALS: TEMP 98.2
[2020-12-28] MEDS: ASPIRIN 81 MG PO SCH (08:18)
[2020-12-28] MEDS: ISOSORBIDE MONONITRATE ER 30 MG TAB.ER.24H PO SCH (08:18)
[2020-12-28] MEDS: PRASUGREL 10 MG TAB PO SCH (08:18)
[2020-12-28] MEDS: APIXABAN 5 MG TAB PO SCH (08:18)
[2020-12-28] MEDS: EZETIMIBE 10 MG TAB PO SCH (08:18)
[2020-12-28] MEDS: FUROSEMIDE 10 MG/ML 4 ML VIAL IV SCH (08:18)
[2020-12-28] MEDS: METOPROLOL SUCCINATE (ER) 50 MG TAB.ER.24H PO SCH (08:18)
[2020-12-28] MEDS: SPIRONOLACTONE 25 MG TAB PO SCH (08:19)
[2020-12-28] MEDS: lisinopriL 5 MG TAB PO SCH (08:19)
--- NOTE | 2020-12-28 08:38 | P.DS ---
Providers Date of admission: 12/25/20 07:30 Expected date of discharge: 12/28/20 Attending physician: Fady Palomares Consults: 12/25/20 07:30 Consult Physician Urgent Consulting Provider: Ariel Harman Consult Reason/Comments: Acute Coronary syndrome Do you want consulting provider notified?: Yes 12/26/20 15:09 Consult Physician Routine Consulting Provider: [facility] Consult Reason/Comments: Post Interventional patient Do you want consulting provider notified?: Already Contacted Primary care physician: Fady Palomares [facility] Course: HISTORY OF PRESENT ILLNESS This is a 75-year-old male patient of Dr. Dr. Palomares with past medical history for hypertension, hyperlipidemia, valvular heart disease status post aortic valve replacement done at [facility], minimally invasive procedure in 2015, coronary artery disease with previous stent, paroxysmal atrial fibrillation, chronic diastolic heart failure, COPD, obstructive sleep apnea, pulmonary embolism on Coumadin, chronic kidney disease stage III status post left nephrectomy. Patient states that he developed chest pain approximately 2 weeks ago[address] He saw Dr. Harman about that time and he added Imdur 30 mg daily which she has been taking for the last 10 days. He states he does not think it made any difference for his chest pain. Yesterday he developed chest pain that was worse than he had had, heavier in the center on the left side of his chest with radiation to the base of his neck along with shortness of breath. No diaphoresis. Patient came into [facility] emergency center for evaluation. EKG was sinus rhythm with Q waves inferiorly and first-degree AV block. CBC was unremarkable. Electrolytes were normal. BUN 23 creatinine 1.31, blood sugar 132, alkaline phosphatase 147. Troponin 2.6-0. Chest x-ray reveals chronic changes without acute pulmonary process. Patient admitted to the cardiac stepdown unit, consult with Dr. Paola rothman, heparin drip, patient scheduled for heart catheterization tomorrow while monitoring renal function closely. 12/26: The patient states he does not have any chest pain at this time but he does have some discomfort at the base of his neck. He was started on nitroglycerin drip last night and continued on heparin drip. He is tentatively scheduled for heart catheterization today. Repeat blood work reveals INR is 2.7. Electrolytes are normal. BUN 22 and creatinine 1.28. Blood sugar 131. Repeat troponins yesterday were 3.160 and 4.210. Patient's daughter is at the bedside and updated, all questions have been answered. Anticipate heart catheterization today. 12/27: Patient underwent heart catheterization yesterday with Dr. Harman which revealed subtotal occluded mid LAD involving the second diagonal branch and slow flow. Mild to moderate disease in the circumflex and the right coronary artery with patent stents in the RCA. Patient's subsequent August underwent PTCA and stenting of the mid LAD. He is maintained on aspirin, Effient, beta ashley, SNOW inhibitor and statin. Patient also transition from Coumadin to eliquis, Aldactone 25 mg daily has been started. Patient is observed walking from the bathroom to chair and has shortness of breath with activity. Noted wheezing and she is due for nebulizer treatment. IV fluids discontinued and one dose of IV Lasix 20 mg ordered. Patient has been afebrile, heart rate 82, blood pressure 140/77, pulse ox 97% on 2 L nasal cannula. Repeat blood work reveals CBC unremarkable. INR 2.4. Electrolytes are normal, BUN 19 and creatinine 1.25. Blood sugar 106. Plan is to monitor patient overnight and possible discharge for tomorrow. Echocardiogram reveals EF of 40-45% with moderate concentric left ventricular hypertrophy, mild aortic stenosis, mild mitral calcification. 12/28: Dr. Guevara increase Lasix 40 mg IV every 12 hours. Patient has been afebrile, heart rate 86, blood pressure 120/75, pulse ox 96% on 2 L nasal cannula. Repeat blood work reveals sodium 136, potassium 4.0, chloride 101, CO2 29, BUN 27 creatinine 1.41. Weight is down 1-1/2 kg from yesterday. Home oxygen assessment was done and patient dropped to 85% on room air with ambulation. Patient states that he is feeling much better today and breathing is much better from yesterday. He denies having any chest pain. He has had a bowel movement. Patient has been cleared for discharge by cardiology. Will discharge patient home today in stable condition ASSESSMENT AND PLAN 1. Acute non-ST elevated myocardial infarction. 2. Hypertension. 3. Hyperlipidemia. 4. Valvular heart disease status post aortic valve replacement, minimal invasive procedure done at [facility], stable. 5. History of coronary artery disease status post coronary stenting. 6. Paroxysmal atrial fibrillation. 7. Acute on chronic diastolic heart failure. 8. COPD, stable without exacerbation. 9. Obstructive sleep apnea. 10. Pulmonary embolism on chronic Coumadin. 11. Chronic kidney disease status post left nephrectomy. 12. Glaucoma. 13. Chronic hypoxic respiratory failure requiring home oxygen therapy to manage his diagnosis of COPD and chronic diastolic heart failure. DISCHARGE PLAN Home with [facility]. Impression and plan of care have been directed as dictated by the signing physician. Naty Mclean nurse practitioner acting as scribe for signing physician. Patient Condition at Discharge: Good Plan - Discharge Summary Discharge Rx Participant: Yes New Discharge Prescriptions: New Nitroglycerin Sl Tabs [Nitrostat] 0.4 mg SUBLINGUAL Q5M PRN #25 tab PRN Reason: Chest Pain Prasugrel [Effient] 10 mg PO DAILY #30 tab Apixaban [Eliquis] 5 mg PO BID #60 tab lisinopriL [Zestril] 5 mg PO BID #30 tab Spironolactone [Aldactone] 25 mg PO DAILY #30 tab Continue Pravastatin Sodium [Pravachol] 80 mg PO HS Aspirin 81 mg PO DAILY Ezetimibe [Zetia] 10 mg PO DAILY Chlorpheniramine/Dextromethorp [Coricidin Hbp Cough-Cold Tab] 1 tab PO Q6H PRN PRN Reason: COUGH/COLD SX Latanoprost/Pf [Latanoprost 0.005% Eye Drop] 1 drop RIGHT EYE HS Potassium Chloride [Klor-Con 20] 20 meq PO DAILY Acetaminophen [Tylenol Extra Strength] 500 - 1,000 mg PO Q6H PRN PRN Reason: Pain Budesonide-Formot 160-4.5 Mcg [Symbicort 160-4.5 Mcg Inhaler] 2 puff INHALATION RT-BID PRN PRN Reason: Shortness Of Breath Isosorbide Mononitrate ER [Imdur] 30 mg PO DAILY Metoprolol Succinate (ER) [Toprol XL] 50 mg PO BID Albuterol Sulfate [Ventolin HFA] 1 - 2 puff INHALATION RT-QID PRN PRN Reason: Shortness Of Breath Furosemide [Lasix] 80 mg PO DAILY Discontinued Warfarin Sodium [Jantoven] 6 mg PO SUMOTUTHFRSA Warfarin Sodium [Jantoven] 3 mg PO WE Discharge Medication List Aspirin 81 mg PO DAILY 10/11/14 [History] Pravastatin Sodium [Pravachol] 80 mg PO HS 10/11/14 [History] Ezetimibe [Zetia] 10 mg PO DAILY 01/11/18 [History] Acetaminophen [Tylenol Extra Strength] 500 - 1,000 mg PO Q6H PRN 03/16/20 [History] Chlorpheniramine/Dextromethorp [Coricidin Hbp Cough-Cold Tab] 1 tab PO Q6H PRN 03/16/20 [History] Latanoprost/Pf [Latanoprost 0.005% Eye Drop] 1 drop RIGHT EYE HS 03/16/20 [History] Potassium Chloride [Klor-Con 20] 20 meq PO DAILY 03/16/20 [History] Budesonide-Formot 160-4.5 Mcg [Symbicort 160-4.5 Mcg Inhaler] 2 puff INHALATION RT-BID PRN 04/23/20 [History] Albuterol Sulfate [Ventolin HFA] 1 - 2 puff INHALATION RT-QID PRN 12/25/20 [History] Furosemide [Lasix] 80 mg PO DAILY 12/25/20 [History] Isosorbide Mononitrate ER [Imdur] 30 mg PO DAILY 12/25/20 [History] Metoprolol Succinate (ER) [Toprol XL] 50 mg PO BID 12/25/20 [History] Nitroglycerin Sl Tabs [Nitrostat] 0.4 mg SUBLINGUAL Q5M PRN #25 tab 12/26/20 [Rx] Apixaban [Eliquis] 5 mg PO BID #60 tab 12/28/20 [Rx] Prasugrel [Effient] 10 mg PO DAILY #30 tab 12/28/20 [Rx] Spironolactone [Aldactone] 25 mg PO DAILY #30 tab 12/28/20 [Rx] lisinopriL [Zestril] 5 mg PO BID #30 tab 12/28/20 [Rx] Follow up Appointment(s)/Referral(s): [facility], [NON-STAFF] - 12/30/20 Ariel Harman MD [STAFF PHYSICIAN] - 1 Week Fady Palomares MD [Primary Care Provider] - 1 Week [facility] [NON-STAFF] - As Needed (Supplier of home oxygen) Discharge Disposition: HOME WITH HOME HEALTH SERVICES
--- NOTE | 2020-12-28 08:52 | P.PN ---
Subjective Progress Note Date: 12/28/20 Principal diagnosis: Acute coronary event This is a pleasant 75-year-old gentleman with coronary artery disease and valvular heart disease as well as hypertension and dyslipidemia who was admitted to the hospital with chest discomfort and ruled in for acute coronary event. He underwent heart catheterization and was found to have severe disease involving the LAD. He underwent successful stenting of the mid LAD. The patient was seen yesterday. He stated that he is feeling better in terms of shortness of breath. On examination he definitely has less crackles in lungs garcia concurred to yesterday. He is currently on Lasix IV. Beside that he is on dual antiplatelet therapy and he is on anticoagulation. From the cardiovascular standpoint of view, the patient potentially, home in the next 12- 24 hours. Objective - Vital Signs Vital signs: Vital Signs Temp 98.2 F 12/28/20 08:00 Pulse 67 12/28/20 08:00 Resp 16 12/28/20 08:00 BP 97/58 12/28/20 08:00 Pulse Ox 96 12/28/20 08:00 Intake & Output 12/27/20 12/28/20 12/28/20 18:59 06:59 18:59 Intake Total 298 Output Total 800 1700 Balance -502 -1700 Weight 129.2 kg 127.6 kg Intake: Oral 298 Output: Urine 800 1700 Other: # Voids 2 - Constitutional General appearance: Present: no acute distress - Respiratory Respiratory: bilateral: CTA - Cardiovascular Rhythm: regular Heart sounds: normal: S1, S2 - Labs CBC & Chem 7: 12/27/20 07:16 12/28/20 06:44 Labs: Abnormal Lab Results - Last 24 Hours (Table) 12/28/20 Range/Units 06:44 Sodium 136 L (137-145) mmol/L BUN 27 H (9-20) mg/dL Creatinine 1.41 H (0.66-1.25) mg/dL Assessment and Plan Assessment: Assessment #1 acute non-ST deviation myocardial infarction and status post PCI of the LAD #2 chronic kidney disease #3 history of left nephrectomy #4 valvular heart disease and status post minimally invasive aortic valve replacement #5 hypertension #6 dyslipidemia Plan #1 continue the current medical regimen #2 DC Lasix IV and start the patient back on Lasix by mouth #3 possible discharge in the next 12-24 hours
[2020-12-28] MEDS ORDERED: FUROSEMIDE 40 MG TAB PO SCH (09:00)
[2020-12-28] MEDS ORDERED: FUROSEMIDE 80 MG TAB PO SCH (09:00)
[2020-12-28] MEDS: ALBUTEROL NEBULIZED 2.5 MG/3 ML INHALATION PRN (10:15)
[2020-12-28] MEDS: SYMBICORT 160-4.5 MCG INHALER INHALATION SCH (10:15)
[2020-12-28 11:29] VITALS: BP 108/64; PULSE 85
== END 2020-12-28 15:28 | disposition home health service (06) | DRG 246 ==
LOC: EC 05:50 → 3SCARD 07:30
PROVIDERS: ADMIT Internal Medicine; ATTEND Internal Medicine
PROC: B2111ZZ Fluoroscopy of Multiple Coronary Arteries using Low Osmolar Contrast (ICD-10-PCS; 2020-12-26)
PROC: 027035Z Dilation of Coronary Artery, One Artery with Two Drug-eluting Intraluminal Devices, Percutaneous Approach (ICD-10-PCS; principal; 2020-12-26 09:55)
PROC: 4A023N7 Measurement of Cardiac Sampling and Pressure, Left Heart, Percutaneous Approach (ICD-10-PCS; 2020-12-26 09:55)
DX: I21.4 Non-ST elevation (NSTEMI) myocardial infarction (principal); I50.33 Acute on chronic diastolic (congestive) heart failure; I13.0 Hypertensive heart and chronic kidney disease with heart failure and stage 1 through stage 4 chronic kidney disease, or unspecified chronic kidney disease; J96.11 Chronic respiratory failure with hypoxia; E78.5 Hyperlipidemia, unspecified; I25.10 Atherosclerotic heart disease of native coronary artery without angina pectoris; I48.0 Paroxysmal atrial fibrillation; N18.30 Chronic kidney disease, stage 3 unspecified; J44.9 Chronic obstructive pulmonary disease, unspecified; I44.0 Atrioventricular block, first degree; Z79.82 Long term (current) use of aspirin; Z79.01 Long term (current) use of anticoagulants; Z79.51 Long term (current) use of inhaled steroids; Z86.73 Personal history of transient ischemic attack (TIA), and cerebral infarction without residual deficits; Z87.891 Personal history of nicotine dependence; Z95.2 Presence of prosthetic heart valve; Z82.49 Family history of ischemic heart disease and other diseases of the circulatory system; Z82.5 Family history of asthma and other chronic lower respiratory diseases; Z95.5 Presence of coronary angioplasty implant and graft; Z96.643 Presence of artificial hip joint, bilateral; Z86.711 Personal history of pulmonary embolism; Z90.5 Acquired absence of kidney; G47.33 Obstructive sleep apnea (adult) (pediatric); H40.9 Unspecified glaucoma; R79.1 Abnormal coagulation profile; Z79.899 Other long term (current) drug therapy; Z87.442 Personal history of urinary calculi; I35.9 Nonrheumatic aortic valve disorder, unspecified
CPT/HCPCS: 36415; 71046; 80048; 80053; 80061; 83735; 84484; 85025; 85027; 85610; 85730; 93005; 93306; 93458; 94640; 94760; 96374; 99291

== ENCOUNTER 2021-12-10 04:56 | Observation (INO) | payer MEDICARE ==
--- NOTE | 2021-12-10 05:26 | ED ---
Chest Pain HPI - General Chief Complaint: Chest Pain Stated Complaint: Chest Pain Time Seen by Provider: 12/10/21 05:08 Source: patient, EMS Mode of arrival: EMS Limitations: no limitations - History of Present Illness Initial Comments: This patient is 76-year-old man who presents 7 evaluation of left-sided chest pain. He states that it had come on around 11 PM while he was just at rest. He indicates the left chest and states that it is worse with taking a deep breath. He describes it as a squeezing sensation. No associated symptoms. No cough or dyspnea. No fever or chills. No nausea vomiting palpitations or any other anginal symptoms. When the symptoms symptoms did not resolve by a little left are 4 AM he phoned EMS who brought him here for evaluation. Reviewed the patient's medical list with him, Dr Palomares states patient taking eliquis. Complaint: chest pain Onset/Timin -: hour(s) Onset: during rest Pain Location: left chest Pain Radiation: none Severity: moderate Quality: aching Consistency: constant Improves With: nothing Worsens With: inspiration Treatments Prior to Arrival: none - Related Data Home Medications Medication Instructions Recorded Confirmed Pravastatin Sodium [Pravachol] 80 mg PO HS 10/11/14 12/10/21 Ezetimibe [Zetia] 10 mg PO DAILY 01/11/18 12/10/21 Potassium Chloride [Klor-Con 20] 20 meq PO DAILY 03/16/20 12/10/21 Furosemide [Lasix] 80 mg PO DAILY 12/25/20 12/10/21 Isosorbide Mononitrate ER [Imdur] 30 mg PO DAILY 12/25/20 12/10/21 Metoprolol Succinate (ER) [Toprol 50 mg PO BID 12/25/20 12/10/21 XL] lisinopriL [Zestril] 5 mg PO DAILY 12/10/21 12/10/21 Previous Rx's Medication Instructions Recorded Nitroglycerin Sl Tabs [Nitrostat] 0.4 mg SUBLINGUAL Q5M PRN #25 tab 12/26/20 Apixaban [Eliquis] 5 mg PO BID #60 tab 12/28/20 Prasugrel [Effient] 10 mg PO DAILY #30 tab 12/28/20 Spironolactone [Aldactone] 25 mg PO DAILY #30 tab 12/28/20 Allergies Allergy/AdvReac Type Severity Reaction Status Date / Time atorvastatin calcium AdvReac CRAMPS IN Verified 12/10/21 06:27 [From Lipitor] LEGS Review of Systems ROS Statement: Those systems with pertinent positive or pertinent negative responses have been documented in the HPI. ROS Other: All systems not noted in ROS Statement are negative. Constitutional: Denies: fever, chills Respiratory: Denies: cough, dyspnea, hemoptysis Cardiovascular: Reports: chest pain. Denies: palpitations, orthopnea, edema, syncope Gastrointestinal: Denies: abdominal pain, nausea, vomiting, diarrhea Genitourinary: Denies: dysuria, hematuria Musculoskeletal: Denies: back pain Skin: Denies: rash Neurological: Denies: headache, weakness, numbness EKG Findings - EKG Results: EKG: interpreted by FELIPED, sinus rhythm - Blocks, Raymond, Hypertrophy, ST Abn: AV and intraventricular conduction: 1 AV block, right bundle branch block (fixed/intermittent, complete/incomplete), left anterior fascicular block - LA, Pacemaker, Normal: Myocardial infarction: anterior LA (old age or indeterminate) Past Medical History Past Medical History: COPD, CVA/TIA, Hyperlipidemia, Hypertension, Osteo arthritis (OA), Pulmonary Embolus (PE) Additional Past Medical History / Comment(s): Stated a couple TIA's - no residual effects History of Any Multi-Drug Resistant Organisms: None Reported Past Surgical History: Appendectomy, Heart Catheterization With Stent, Hernia Repair, Joint Replacement, Orthopedic Surgery Additional Past Surgical History / Comment(s): Bilateral hip replacements, cystoscopy, surgery for ingrown toenails adam feet, vasectomy, arthroscopy rt knee, adam carpal tunnel, two cardiac stents, "atrial valve replacement 2014 (pig valve)", mult surgeries for kidney stones Past Anesthesia/Blood Transfusion Reactions: Previous Problems w/ Anesthesia Additional Past Anesthesia/Blood Transfusion Reaction / Comment(s): woke up during a cystoscopy Date of Last Stent Placement:: 12/16/12 Past Psychological History: Anxiety Smoking Status: Former smoker Past Alcohol Use History: Rare Past Drug Use History: None Reported - Past Family History Daughter(s) Family Medical History: Cancer Additional Family Medical History / Comment(s): breast General Exam General appearance: alert, in no apparent distress Head exam: Present: atraumatic, normocephalic Eye exam: Present: normal appearance. Absent: scleral icterus, conjunctival injection ENT exam: Present: normal oropharynx Neck exam: Present: normal inspection Respiratory exam: Present: normal lung sounds bilaterally. Absent: respiratory distress, wheezes, rales, rhonchi, stridor, accessory muscle use Cardiovascular Exam: Present: regular rate, normal rhythm, normal heart sounds. Absent: systolic murmur, diastolic murmur, rubs, gallop GI/Abdominal exam: Present: soft. Absent: distended, tenderness, guarding, rebound, rigid, mass Extremities exam: Present: normal inspection, normal capillary refill. Absent: pedal edema, calf tenderness Back exam: Present: normal inspection. Absent: CVA tenderness (R), CVA tenderness (L) Neurological exam: Present: alert Skin exam: Present: warm, dry, intact, normal color. Absent: rash Course Vital Signs 12/10/21 12/10/21 05:08 06:13 Temperature 98.7 F Pulse Rate 96 92 Respiratory 16 14 Rate Blood Pressure 142/88 142/88 O2 Sat by Pulse 96 95 Oximetry Disposition Clinical Impression: Chest pain Disposition: ADMITTED IP TO THIS HOSP Condition: Fair Instructions (If sedation given, give patient instructions): Chest Pain (ED) Is patient prescribed a controlled substance at d/c from ED?: No Referrals: Fady Palomares MD [Primary Care Provider] - 1-2 days
[2021-12-10 05:43] LABS: Basophils # (A) 0.1 k/uL (0-0.2); Basophils % (A) 1 %; Eosinophils # (A) 0.2 k/uL (0-0.7); Eosinophils % (A) 3 %; HCT 46.4 % (39.0-53.0); HGB 15.6 gm/dL (13.0-17.5); Lymphocytes % (A) 33 %; MCH 31.4 pg (25.0-35.0); MCHC 33.6 g/dL (31.0-37.0); MCV 93.4 fL (80.0-100.0); Mean Platelet Volume 7.7; Monocytes # (A) 0.5 k/uL (0-1.0); Monocytes % (A) 8 %; Neutrophils # (A) 3.2 k/uL (1.3-7.7); Neutrophils % (A) 51 %; Platelet Count 230 k/uL (150-450); RBC 4.96 m/uL (4.30-5.90); RDW 13.4 % (11.5-15.5); WBC 6.2 k/uL (3.8-10.6)
[2021-12-10 06:00] LABS: INR 0.9 (<1.2); Partial Thromboplastin Time 25.9 sec (22.0-30.0); Prothrombin Time 10.3 sec (9.0-12.0)
[2021-12-10 06:14] LABS: Albumin 4.5 g/dL (3.5-5.0); Calcium 9.1 mg/dL (8.4-10.2); Magnesium 2.2 mg/dL (1.6-2.3); Potassium 4.8 mmol/L (3.5-5.1); Total Bilirubin 0.5 mg/dL (0.2-1.3); Total Protein 7.7 g/dL (6.3-8.2)
--- NOTE | 2021-12-10 06:36 | XR ---
EXAMINATION TYPE: XR chest 2V DATE OF EXAM: 12/10/2021 COMPARISON: 12/25/2020 HISTORY: Chest pain TECHNIQUE: 2 views FINDINGS: There is no heart failure. There is mild elevation of the left diaphragm. Lungs are clear o f consolidation. No evidence of pleural effusion. There are chest leads. IMPRESSION: Poor inspiration that is worse than last exam. No heart failure.
[2021-12-10] MEDS ORDERED: NITROGLYCERIN SL TABS 0.4 MG TAB SUBLINGUAL PRN ×2 (07:14→07:27)
--- NOTE | 2021-12-10 11:28 | P.HPIM ---
History of Present Illness H&P Date: 12/10/21 HISTORY OF PRESENT ILLNESS This is a 76-year-old male patient with past medical history for hypertension, hyperlipidemia, valvular heart disease status post aortic valve replacement done at [facility] on Coumadin, minimally invasive procedure in 2014, coronary artery disease with previous stent, history of non-ST elevated myocardial infarction 11/2020, paroxysmal atrial fibrillation, chronic diastolic heart failure, COPD, obstructive sleep apnea, pulmonary embolism, chronic kidney disease stage III status post left nephrectomy. His returns processor is Dr. Harman. On 12/27/2020, patient underwent heart catheterization with Dr. Harman which revealed subtotal occluded mid LAD involving the second diagonal branch and slow flow. Mild to moderate disease in the circumflex and the right coronary artery with patent stents in the RCA. Patient's subsequently underwent PTCA and stenting of the mid LAD. Echocardiogram at that time revealed EF of 40-45% with moderate concentric left ventricular hypertrophy, mild aortic stenosis, mild mitral calcification. Patient states that he developed chest pain last night about 8 PM while he was watching TV. He did not take nitroglycerin at home. He called 911 and EMS did give him 2 nitroglycerin tablets that he does not think helped. This morning, he feels tired and chest pain not really there but noticeable when he takes a deep breath. No tenderness to his chest wall. Patient also states he had a little bit of pressure in his left arm. No radiation to his neck, no cough, no fever or chills. Patient came into [facility] emergency center for evaluation. EKG reveals sinus rhythm with no acute ST changes. Patient was found to be afebrile, heart rate 96, blood pressure 142/88, pulse ox 96% on room air. CBC was unremarkable. D-dimer 1.14. INR 0.9. Sodium 136, potassium 4.8, chloride 96, CO2 28, BUN 30 and creatinine 1.67. Troponin negative on 2 draws. Total protein 7.7, albumin 4.5. Alkaline phosphatase 148 otherwise liver function tests are normal. Chest x-ray reveals poor inspiration that is worse than last exam no heart failure. Patient is seen today in the emergency center waiting for a bed on the sixth floor. VQ scan is pending. REVIEW OF SYSTEMS Constitutional: No fever, no chills, no night sweats. No weight change. No weakness, fatigue or lethargy. No daytime sleepiness. EENT: No headache. No blurred vision or double vision, no loss of vision. No loss of Hearing, no ringing in the ears, no dizziness. No nasal drainage or congestion. No epistaxis. No sore throat. Lungs: No shortness of breath, cough, no sputum production. No wheezing. Cardiovascular: Reports chest pain left-sided with radiation to left arm, no lower extremity edema. No palpitations. No paroxysmal nocturnal dyspnea. No orthopnea. No lightheadedness or dizziness. No syncopal episodes. Abdominal: No abdominal pain. No nausea, vomiting. No diarrhea. No constipation. No bloody or tarry stools. No loss of appetite. Genitourinary: No dysuria, increased frequency, urgency. No urinary retention. Musculoskeletal: No myalgias. No muscle weakness, no gait dysfunction, no frequent falls. No back pain. No neck pain. Integumentary: No wounds, no lesions. No rash or pruritus. No unusual bruising. No change in hair or nails. Neurologic: No aphasia. No facial droop. No change in mentation. No head injury. No headache. No paralysis. No paresthesia. Psychiatric: No depression. No anxiety. No mood swings. Endocrine: No abnormal blood sugars. No weight change. No excessive sweating or thirst. No cold intolerance. MEDICAL HISTORY Hypertension Hyperlipidemia Valvular heart disease status post aortic valve replacement Coronary artery disease Non-ST elevated myocardial infarction 11/2020 Paroxysmal atrial fibrillation Chronic diastolic heart disease COPD Obstructive sleep apnea Pulmonary embolism on Coumadin Chronic kidney disease stage 3 status post left nephrectomy Glaucoma SURGICAL HISTORY Inguinal hernia repair, bilateral Cystoscopies multiple Vasectomy Right knee arthroscopic surgery Carpal tunnel release bilaterally Bilateral hip replacements Appendectomy Coronary stents 2 in 2012 Heart catheterization in 2014 PTCA and stenting of the mid LAD 12/2020 YULIYA 2015 Cystoscopy with lithotripsy in 2014 Aortic valve replacement 2015 Coronary ablation 2016 Cystoscopy with laser lithotripsy and stone removal in 2018 Left nephrectomy March 2020 SOCIAL HISTORY Patient was a smoker 2 packs per day for 14 years and quit in 1989. Patient is a and lives alone. FAMILY HISTORY Father at age 92 from CHF and history of Paget disease and hypertension. Mother at age 51 from liver cirrhosis. Patient has 2 brothers and one has history of asthma and coronary artery disease. Second brother has history of hypertension and coronary artery disease. Patient has 1 sister alive at age 62 is overweight. Patient has 1 son that at age 42 from alcohol complications. Patient has 1 daughter who is a nurse. PHYSICAL EXAMINATION Gen: This is a morbidly obese 76-year-old male, resting in the ER stretcher and appears to be comfortable and in no acute distress. HEENT: Head is atraumatic, normocephalic. Pupils equal, round. Sclerae is anicteric. NECK: Supple. No JVD. No lymphadenopathy. No thyromegaly. LUNGS: Diminished breath sounds throughout but otherwise clear to auscultation. No wheezes or rhonchi. No intercostal retractions. HEART: Regular rate and rhythm. 2/6 systolic ejection murmur at the left sternal border. ABDOMEN: Soft. Bowel sounds are present. No masses. No tenderness. No hepatosplenomegaly. EXTREMITIES: No pedal edema. No calf tenderness. Dorsalis pedis +2 bilaterally NEUROLOGICAL: Patient is awake, alert and oriented x3. Cranial nerves 2 through 12 are grossly intact. ASSESSMENT AND PLAN 1. Chest pain with negative troponins 2. Cardiology consult, continue patient on Imdur 30 mg daily, Toprol-XL 50 mg twice daily, Effient 10 mg daily, Zetia 10 mg daily, pravastatin 80 mg at bedtime, echocardiogram ordered. 2. History of acute non-ST elevated myocardial infarction 11/2020 and status post PTCA and stent of the LAD with previous stenting done in 2012. Continue as in #1. 3. Hypertension. Continue Toprol-XL, Imdur. 4. Hyperlipidemia. Continue pravastatin. 5. Valvular heart disease status post aortic valve replacement, minimal invasive procedure done at [facility], stable. Continue eliquis 5 mg twice daily, Lasix 80 mg daily and potassium 20 mg daily. 6. Paroxysmal atrial fibrillation.Continue eliquis 5 mg twice daily, Toprol-XL 50 mg twice daily 7. Chronic diastolic heart failure. Continue Lasix and potassium. 8. COPD, stable without exacerbation. 9. Obstructive sleep apnea. Continue CPAP. 10. Pulmonary embolism history. Continue eliquis. 11. Chronic kidney disease status post left nephrectomy. Monitor renal function, avoid nephrotoxic agents. 12. Glaucoma. 13. GI prophylaxis. Protonix. 14. DVT prophylaxis. Eliquis. Patient will be admitted to the hospital for a minimum of 2 night stay. DISCHARGE PLAN Home. Impression and plan of care have been directed as dictated by the signing physician. Naty Mclean nurse practitioner acting as scribe for signing physician. Past Medical History Past Medical History: COPD, CVA/TIA, Hyperlipidemia, Hypertension, Osteoarthritis (OA), Pulmonary Embolus (PE) Additional Past Medical History / Comment(s): Stated a couple TIA's - no residual effects History of Any Multi-Drug Resistant Organisms: None Reported Past Surgical History: Appendectomy, Heart Catheterization With Stent, Hernia Repair, Joint Replacement, Orthopedic Surgery Additional Past Surgical History / Comment(s): Bilateral hip replacements, cystoscopy, surgery for ingrown toenails adam feet, vasectomy, arthroscopy rt knee, adam carpal tunnel, two cardiac stents, "atrial valve replacement 2014 (pig valve)", mult surgeries for kidney stones Past Anesthesia/Blood Transfusion Reactions: Previous Problems w/ Anesthesia Additional Past Anesthesia/Blood Transfusion Reaction / Comment(s): woke up during a cystoscopy Date of Last Stent Placement:: 12/16/12 Past Psychological History: Anxiety Smoking Status: Former smoker Past Alcohol Use History: Rare Past Drug Use History: None Reported - Past Family History Daughter(s) Family Medical History: Cancer Additional Family Medical History / Comment(s): breast Mother History Unknown: Yes Additional Family Medical History / Comment(s): Mother at the age of 50/51 yrs, pt cannot recall cause of . Father Family Medical History: Congestive Heart Failure (CHF) Additional Family Medical History / Comment(s): Father lived to be 92 yrs old. Medications and Allergies Home Medications Medication Instructions Recorded Confirmed Type Pravastatin Sodium [Pravachol] 80 mg PO HS 10/11/14 12/10/21 History Ezetimibe [Zetia] 10 mg PO DAILY 01/11/18 12/10/21 History Potassium Chloride [Klor-Con 20] 20 meq PO DAILY 03/16/20 12/10/21 History Furosemide [Lasix] 80 mg PO DAILY 12/25/20 12/10/21 History Isosorbide Mononitrate ER [Imdur] 30 mg PO DAILY 12/25/20 12/10/21 History Metoprolol Succinate (ER) [Toprol 50 mg PO BID 12/25/20 12/10/21 History XL] Nitroglycerin Sl Tabs [Nitrostat] 0.4 mg SUBLINGUAL Q5M PRN #25 tab 12/26/20 12/10/21 Rx Apixaban [Eliquis] 5 mg PO BID #60 tab 12/28/20 12/10/21 Rx Prasugrel [Effient] 10 mg PO DAILY #30 tab 12/28/20 12/10/21 Rx Spironolactone [Aldactone] 25 mg PO DAILY #30 tab 12/28/20 12/10/21 Rx lisinopriL [Zestril] 5 mg PO DAILY 12/10/21 12/10/21 History Nitroglycerin Sl Tabs [Nitrostat] 0.4 mg SUBLINGUAL Q5M PRN #25 tab 12/11/21 Rx Allergies Allergy/AdvReac Type Severity Reaction Status Date / Time atorvastatin calcium AdvReac CRAMPS IN Verified 12/10/21 06:27 [From Lipitor] LEGS Physical Exam Vitals: Vital Signs Temp Pulse Resp BP Pulse Ox 12/10/21 06:13 92 14 142/88 95 12/10/21 05:08 98.7 F 96 16 142/88 96 Intake and Output 12/09/21 12/10/21 12/10/21 22:59 06:59 14:59 Other: Weight 122.47 kg Results CBC & Chem 7: 12/10/21 05:22 12/10/21 05:22 Labs: Abnormal Lab Results - Last 24 Hours (Table) 12/10/21 12/10/21 Range/Units 05:22 05:22 D-Dimer 1.14 H (<0.60) mg/L FEU Sodium 136 L (137-145) mmol/L Chloride 96 L (98-107) mmol/L BUN 30 H (9-20) mg/dL Creatinine 1.67 H (0.66-1.25) mg/dL Glucose 102 H (74-99) mg/dL Alkaline Phosphatase 148 H (38-126) U/L
--- NOTE | 2021-12-10 11:59 | NM ---
EXAMINATION TYPE: NM pul vent and perfuse DATE OF EXAM: 12/10/2021 COMPARISON: Chest radiograph 12/10/2021 CLINICAL INDICATION:Male, 76 years old with history of R/O PE; TECHNIQUE: Utilizing inhalation of 33.9 mCi Tc 99m DTPA aerosol and intravenous injection of 5.06 mC i of Tc 99m MAA, ventilation and perfusion images are acquired post injection in multiple projections . FINDINGS: Scattered ventilation clumping of the radiotracer which could represent COPD changes. Delayed images demonstrate no perfusion abnormalities of fixed or reversible nature. No segmental def ects are noted. IMPRESSION: 1. Patchy uptake of ventilation radiotracer Tc 99m DTPA aerosol which may represent improper tagging or COPD changes . 2. No evidence for perfusion abnormality to suggest pulmonary embolism.
[2021-12-10] MEDS: APIXABAN 5 MG TAB PO SCH ×2 (13:11→20:23)
[2021-12-10] MEDS: EZETIMIBE 10 MG TAB PO SCH (13:12)
[2021-12-10] MEDS: FUROSEMIDE 80 MG TAB PO SCH (13:12)
[2021-12-10] MEDS: lisinopriL 5 MG TAB PO SCH (13:12)
[2021-12-10] MEDS: ISOSORBIDE MONONITRATE ER 30 MG TAB.ER.24H PO SCH (13:12)
[2021-12-10] MEDS: SPIRONOLACTONE 25 MG TAB PO SCH (13:13)
[2021-12-10] MEDS: METOPROLOL SUCCINATE (ER) 50 MG TAB.ER.24H PO SCH ×2 (13:13→21:41)
[2021-12-10] MEDS: PRASUGREL 10 MG TAB PO SCH (13:13)
[2021-12-10] MEDS: POTASSIUM CHLORIDE ER 20 MEQ TAB.ER PO SCH (13:13)
[2021-12-10] MEDS ORDERED: PRAVASTATIN SODIUM 80 MG TAB PO SCH (21:00)
--- NOTE | 2021-12-11 07:20 | P.CRDCN ---
History of Present Illness Consult date: 12/11/21 Chief complaint: Chest pain History of present illness: This is a pleasant 76-year-old gentleman with a past medical history significant for CAD with prior stenting of the LAD in 2020 in the setting of acute non-ST elevation myocardial infarction, mildly impaired LV function at that point was EF around 45% with mild aortic stenosis, hypertension, dyslipidemia, presented to the emergency department complaining of chest discomfort. He was in his usual state of health until Thursday night when he was going to sleep at night and started experiencing discomfort in the middle of the chest, as a dull kind of discomfort, with no radiation, no sensitive symptoms of shortness of breath or sweating or dizziness or lightheadedness or any feeling of heart racing or fluttering or presyncope or syncope. The discomfort lasted for about 20 minutes to 30 minutes. The time he presented to the emergency department he was chest pain-free. The pain in the beginning was a sort of pleuritic worse with deep breath. For that reason the patient underwent an investigation including d- dimer and that came in to be abnormal but subsequently V/Q scan of the chest came in to be unremarkable. 3 sets of cardiac enzymes came in to be unremarkable. An EKG was also performed and showed no ischemic ST or T-wave abnormalities. The patient currently chest pain-free and has been chest pain- free since he was admitted to the hospital. He was seen and evaluated this morning. He continues to be chest pain-free. He would like to go home. Overall the chest discomfort seems to be atypical and probably noncardiac. Past Medical History Past Medical History: COPD, CVA/TIA, Hyperlipidemia, Hypertension, Osteoarthritis (OA), Pulmonary Embolus (PE) Additional Past Medical History / Comment(s): Stated a couple TIA's - no residual effects Last Myocardial Infarction Date:: 2020 History of Any Multi-Drug Resistant Organisms: None Reported Past Surgical History: Appendectomy, Heart Catheterization With Stent, Hernia Repair, Joint Replacement, Orthopedic Surgery Additional Past Surgical History / Comment(s): Bilateral hip replacements, cystoscopy, surgery for ingrown toenails adam feet, vasectomy, arthroscopy rt knee, adam carpal tunnel, two cardiac stents, "atrial valve replacement 2014 (pig valve)", mult surgeries for kidney stones Past Anesthesia/Blood Transfusion Reactions: Previous Problems w/ Anesthesia Additional Past Anesthesia/Blood Transfusion Reaction / Comment(s): woke up during a cystoscopy Date of Last Stent Placement:: 12/16/12 Past Psychological History: Anxiety Smoking Status: Former smoker Past Alcohol Use History: Rare Past Drug Use History: None Reported - Past Family History Daughter(s) Family Medical History: Cancer Additional Family Medical History / Comment(s): breast Mother History Unknown: Yes Additional Family Medical History / Comment(s): Mother at the age of 50/51 yrs, pt cannot recall cause of . Father Family Medical History: Congestive Heart Failure (CHF) Additional Family Medical History / Comment(s): Father lived to be 92 yrs old. Medications and Allergies Home Medications Medication Instructions Recorded Confirmed Type Pravastatin Sodium [Pravachol] 80 mg PO HS 10/11/14 12/10/21 History Ezetimibe [Zetia] 10 mg PO DAILY 01/11/18 12/10/21 History Potassium Chloride [Klor-Con 20] 20 meq PO DAILY 03/16/20 12/10/21 History Furosemide [Lasix] 80 mg PO DAILY 12/25/20 12/10/21 History Isosorbide Mononitrate ER [Imdur] 30 mg PO DAILY 12/25/20 12/10/21 History Metoprolol Succinate (ER) [Toprol 50 mg PO BID 12/25/20 12/10/21 History XL] Nitroglycerin Sl Tabs [Nitrostat] 0.4 mg SUBLINGUAL Q5M PRN #25 tab 12/26/20 12/10/21 Rx Apixaban [Eliquis] 5 mg PO BID #60 tab 12/28/20 12/10/21 Rx Prasugrel [Effient] 10 mg PO DAILY #30 tab 12/28/20 12/10/21 Rx Spironolactone [Aldactone] 25 mg PO DAILY #30 tab 12/28/20 12/10/21 Rx lisinopriL [Zestril] 5 mg PO DAILY 12/10/21 12/10/21 History Allergies Allergy/AdvReac Type Severity Reaction Status Date / Time atorvastatin calcium AdvReac CRAMPS IN Verified 12/10/21 06:27 [From Lipitor] LEGS Physical Exam Vitals: Vital Signs Temp Pulse Pulse Resp BP BP Pulse Ox 12/11/21 01:09 97.8 F 76 17 128/72 95 12/10/21 15:00 97.3 F L 90 18 131/68 96 12/10/21 09:26 97.5 F L 91 18 119/75 97 12/10/21 07:40 87 18 108/79 96 Intake and Output 12/10/21 12/11/21 12/11/21 22:59 06:59 14:59 Other: Voiding Method Toilet Toilet # Voids 2 3 # Bowel Movements 1 - Constitutional General appearance: no acute distress - Respiratory Respiratory: bilateral: CTA - Cardiovascular Rhythm: regular Heart sounds: normal: S1, S2 Abnormal Heart Sounds: systolic murmur Results 12/10/21 05:22 12/10/21 05:22 Cardiac Enzymes 12/10/21 12/10/21 Range/Units 07:42 14:24 Troponin I <0.012 <0.012 (0.000-0.034) ng/mL Current Medications Generic Name Dose Route Start Last Admin Trade Name Freq PRN Reason Stop Dose Admin Apixaban 5 mg 12/10/21 09:00 12/10/21 20:23 Apixaban 5 Mg Tab PO 5 mg BID MART Administration Protocol Aspirin 325 mg 12/11/21 09:00 Aspirin 325 Mg Tab PO DAILY MART Ezetimibe 10 mg 12/10/21 09:00 12/10/21 13:12 Ezetimibe 10 Mg Tab PO 10 mg DAILY MART Administration Furosemide 80 mg 12/10/21 09:00 12/10/21 13:12 Furosemide 80 Mg Tab PO 80 mg DAILY MART Administration Isosorbide Mononitrate 30 mg 12/10/21 09:00 12/10/21 13:12 Isosorbide Mononitrate Er 30 Mg Tab.Er.24h PO 30 mg DAILY MART Administration Lisinopril 5 mg 12/10/21 09:00 12/10/21 13:12 Lisinopril 5 Mg Tab PO 5 mg DAILY MART Administration Metoprolol Succinate 50 mg 12/10/21 09:00 12/10/21 21:41 Metoprolol Succinate (Er) 50 Mg Tab.Er.24h PO 50 mg BID MART Administration Nitroglycerin 0.4 mg 12/10/21 07:14 Nitroglycerin Sl Tabs 0.4 Mg Tab SUBLINGUAL Q5M PRN Chest Pain Nitroglycerin 0.4 mg 12/10/21 07:27 Nitroglycerin Sl Tabs 0.4 Mg Tab SUBLINGUAL Q5M PRN Chest Pain Pantoprazole Sodium 40 mg 12/11/21 07:30 Pantoprazole 40 Mg Tablet PO AC-BRKFST MART Potassium Chloride 20 meq 12/10/21 09:00 12/10/21 13:13 Potassium Chloride Er 20 Meq Tab.Er PO 20 meq DAILY MART Administration Prasugrel 10 mg 12/10/21 09:00 12/10/21 13:13 Prasugrel 10 Mg Tab PO 10 mg DAILY MART Administration Pravastatin Sodium 80 mg 12/10/21 21:00 12/10/21 20:23 Pravastatin Sodium 80 Mg Tab PO 80 mg HS MART Administration Spironolactone 25 mg 12/10/21 09:00 12/10/21 13:13 Spironolactone 25 Mg Tab PO 25 mg DAILY MART Administration Intake and Output 12/10/21 12/11/21 12/11/21 22:59 06:59 14:59 Other: Voiding Method Toilet Toilet # Voids 2 3 # Bowel Movements 1 12/10/21 05:22 12/10/21 05:22 Assessment and Plan Assessment: Assessment #1 chest discomfort, atypical versus noncardiac #2 CAD with prior stenting of the LAD #3 mildly impaired LV function #4 mild aortic stenosis #5 hypertension #6 dyslipidemia Plan #1 acute coronary event was ruled out #2 pulmonary embolism was ruled out #3 the patient can be discharged home and follow-up with his primary cardi ologist as an outpatient Thank you for allowing us participate in his care
[2021-12-11] MEDS ORDERED: PANTOPRAZOLE 40 MG TABLET PO SCH (07:30)
[2021-12-11 07:43] VITALS: BP 103/68; PULSE 72; RESP 16; TEMP 97.6
--- NOTE | 2021-12-11 08:50 | P.DS ---
Providers Date of admission: 12/10/21 07:17 Expected date of discharge: 12/11/21 Attending physician: Fady Palomares Consults: 12/10/21 07:14 Consult Physician Routine Consulting Provider: Yoni Guevara Consult Reason/Comments: chest pain Do you want consulting provider notified?: Yes [facility] Course: HISTORY OF PRESENT ILLNESS This is a 76-year-old male patient with past medical history for hypertension, hyperlipidemia, valvular heart disease status post aortic valve replacement done at [facility] on Coumadin, minimally invasive procedure in 2014, coronary artery disease with previous stent, history of non-ST elevated myocardial infarction 11/2020, paroxysmal atrial fibrillation, chronic diastolic heart fail ure, COPD, obstructive sleep apnea, pulmonary embolism, chronic kidney disease stage III status post left nephrectomy. 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 On 12/27/2020, patient underwent heart catheterization with Dr. Harman which revealed subtotal occluded mid LAD involving the second diagonal branch and slow flow. Mild to moderate disease in the circumflex and the right coronary artery with patent stents in the RCA. Patient's subsequently underwent PTCA and stenting of the mid LAD. Echocardiogram at that time revealed EF of 40-45% with moderate concentric left ventricular hypertrophy, mild aortic stenosis, mild mitral calcification. Patient states that he developed chest pain last night about 8 PM while he was watching TV. He did not take nitroglycerin at home. He called 911 and EMS did give him 2 nitroglycerin tablets that he does not think helped. This morning, he feels tired and chest pain not really there but noticeable when he takes a deep breath. No tenderness to his chest wall. Patient also states he had a little bit of pressure in his left arm. No radiation to his neck, no cough, no fever or chills. Patient came into [facility] emergency center for evaluation. EKG reveals Patient was found to be afebrile, heart rate 96, blood pressure 142/88, pulse ox 96% on room air. CBC was unremarkable. D-dimer 1.14. INR 0.9. Sodium 136, potassium 4.8, chloride 96, CO2 28, BUN 30 and creatinine 1.67. Troponin negative on 2 draws. Total protein 7.7, albumin 4.5. Alkaline phosphatase 148 otherwise liver function tests are normal. Chest x-ray reveals poor inspiration that is worse than last exam no heart failure. Patient is seen today in the emergency center waiting for a bed on the sixth floor. VQ scan is pending. 12/11: VQ scan revealed patchy uptake of tracer May represent improper taking or COPD changes. No evidence of pulmonary embolism. Third troponin came back negative. Patient has been seen by cardiology and acute coronary syndrome has been ruled out and patient is been cleared for discharge. Patient denies having any chest pain, shortness of breath at this time. He is eating breakfast, no nausea or vomiting. Patient will be discharged home today in stable condition. DISCHARGE DIAGNOSES 1. Chest pain, acute coronary syndrome ruled out 2. History of acute non-ST elevated myocardial infarction 11/2020 and status post PTCA and stent of the LAD with previous stenting done in 2012. 3. Hypertension. 4. Hyperlipidemia. 5. Valvular heart disease status post aortic valve replacement, minimal invasive procedure done at [facility], stable. 6. Paroxysmal atrial fibrillation. 7. Chronic diastolic heart failure. 8. COPD, stable without exacerbation. 9. Obstructive sleep apnea. 10. Pulmonary embolism history. 11. Chronic kidney disease status post left nephrectomy. 12. Glaucoma. DISCHARGE PLAN Home. Greater than 35 minutes was utilized and coordinating patient's discharge. Impression and plan of care have been directed as dictated by the signing physician. Naty Mclean nurse practitioner acting as scribe for signing physician. Patient Condition at Discharge: Good Plan - Discharge Summary Discharge Rx Participant: No New Discharge Prescriptions: New Nitroglycerin Sl Tabs [Nitrostat] 0.4 mg SUBLINGUAL Q5M PRN #25 tab PRN Reason: Chest Pain Continue Pravastatin Sodium [Pravachol] 80 mg PO HS Ezetimibe [Zetia] 10 mg PO DAILY Potassium Chloride [Klor-Con 20] 20 meq PO DAILY Isosorbide Mononitrate ER [Imdur] 30 mg PO DAILY Metoprolol Succinate (ER) [Toprol XL] 50 mg PO BID Nitroglycerin Sl Tabs [Nitrostat] 0.4 mg SUBLINGUAL Q5M PRN #25 tab PRN Reason: Chest Pain Prasugrel [Effient] 10 mg PO DAILY #30 tab Apixaban [Eliquis] 5 mg PO BID #60 tab Furosemide [Lasix] 80 mg PO DAILY Spironolactone [Aldactone] 25 mg PO DAILY #30 tab lisinopriL [Zestril] 5 mg PO DAILY Discharge Medication List Pravastatin Sodium [Pravachol] 80 mg PO HS 10/11/14 [History] Ezetimibe [Zetia] 10 mg PO DAILY 01/11/18 [History] Potassium Chloride [Klor-Con 20] 20 meq PO DAILY 03/16/20 [History] Furosemide [Lasix] 80 mg PO DAILY 12/25/20 [History] Isosorbide Mononitrate ER [Imdur] 30 mg PO DAILY 12/25/20 [History] Metoprolol Succinate (ER) [Toprol XL] 50 mg PO BID 12/25/20 [History] Nitroglycerin Sl Tabs [Nitrostat] 0.4 mg SUBLINGUAL Q5M PRN #25 tab 12/26/20 [Rx] Apixaban [Eliquis] 5 mg PO BID #60 tab 12/28/20 [Rx] Prasugrel [Effient] 10 mg PO DAILY #30 tab 12/28/20 [Rx] Spironolactone [Aldactone] 25 mg PO DAILY #30 tab 12/28/20 [Rx] lisinopriL [Zestril] 5 mg PO DAILY 12/10/21 [History] Nitroglycerin Sl Tabs [Nitrostat] 0.4 mg SUBLINGUAL Q5M PRN #25 tab 12/11/21 [Rx] Follow up Appointment(s)/Referral(s): Ariel Harman MD [STAFF PHYSICIAN] - 2 Weeks Fady Palomares MD [Primary Care Provider] - 1 Week Patient Instructions/Handouts: Chest Pain (ED) Discharge Disposition: HOME SELF-CARE
[2021-12-11] MEDS ORDERED: ASPIRIN 325 MG TAB PO SCH (09:00)
[2021-12-11] MEDS: ISOSORBIDE MONONITRATE ER 30 MG TAB.ER.24H PO SCH (09:10)
[2021-12-11] MEDS: EZETIMIBE 10 MG TAB PO SCH (09:10)
[2021-12-11] MEDS: FUROSEMIDE 80 MG TAB PO SCH (09:10)
[2021-12-11] MEDS: SPIRONOLACTONE 25 MG TAB PO SCH (09:10)
[2021-12-11] MEDS: PRASUGREL 10 MG TAB PO SCH (09:10)
[2021-12-11] MEDS: lisinopriL 5 MG TAB PO SCH (09:10)
[2021-12-11] MEDS: METOPROLOL SUCCINATE (ER) 50 MG TAB.ER.24H PO SCH (09:10)
[2021-12-11] MEDS: APIXABAN 5 MG TAB PO SCH (09:11)
[2021-12-11 09:36] LABS: Chol/HDL Ratio 3.55 Ratio
--- NOTE | 2021-12-11 10:21 | CA ---
Transthoracic Echo Report Name: Bari Rich Age: 76 Gender: M : 1945 Exam Date: 12/10/2021 13:21 Exam Location: [place] [facility] Ht (in): 69 Wt (lb): 270 Ordering Physician: Naty Mclean Attending/Referring Phys: [id number], Vinay Moisture Meter Reader Angela Webb, KEN Procedure CPT: Indications: LVF Cardiac Hx: Technical Quality: Technically difficult study Contrast 1: Lumason Total Dose (mL): 3 Contrast 2: Total Dose (mL): MEASUREMENTS (Male / Female) Normal Values 2D ECHO LV Diastolic Diameter PLAX 4.9 cm 4.2 - 5.9 / 3.9 - 5.3 cm LV Systolic Diameter PLAX 3.2 cm IVS Diastolic Thickness 1.3 cm 0.6 - 1.0 / 0.6 - 0.9 cm LVPW Diastolic Thickness 1.3 cm 0.6 - 1.0 / 0.6 - 0.9 cm LV Relative Wall Thickness 0.5 RV Internal Dim ED PLAX 2.3 cm LA Systolic Diameter LX 4.3 cm 3.0 - 4.0 / 2.7 - 3.8 cm LA Volume 72.6 cm??? 18 - 58 / 22 - 52 cm??? M-MODE Aortic Root Diameter MM 3.0 cm DOPPLER AV Peak Velocity 243.2 cm/s AV Peak Gradient 23.7 mmHg AV Mean Velocity 169.1 cm/s AV Mean Gradient 13.2 mmHg AV Velocity Time Integral 50.8 cm LVOT Peak Velocity 79.8 cm/s LVOT Peak Gradient 2.5 mmHg MV Area PHT 3.2 cm??? Mitral E Point Velocity 72.7 cm/s Mitral A Point Velocity 83.2 cm/s Mitral E to A Ratio 0.9 MV Deceleration Time 240.6 ms MV E' Velocity 4.4 cm/s Mitral E to MV E' Ratio 16.4 TR Peak Velocity 247.1 cm/s TR Peak Gradient 24.4 mmHg Right Ventricular Systolic Press 29.2 mmHg FINDINGS Left Ventricle Left ventricular ejection fraction is estimated at 55-60 %. Left ventricular cavity size normal. Mild concentric left ventricular hypertrophy. Right Ventricle Normal right ventricular size and function. Right ventricular systolic pressure within normal limits. Right Atrium Normal right atrial size. Left Atrium Mildly increased left atrial diameter. Moderately increased left atrial volume. Mildly increased left atrial area. Interatrial septal aneurysm Mitral Valve Structurally normal mitral valve. No mitral stenosis, regurgitation or prolapse. Aortic Valve TAVR precedure. Normal functioning valve with peak gradient of 24 mmhg and mean gradient of 13 mmhg Tricuspid Valve Structurally normal tricuspid valve. Trace to mild tricuspid regurgitation. Pulmonic Valve Pulmonic valve not well visualized. Pericardium Normal pericardium. No pericardial effusion. Aorta Normal size aortic root and proximal ascending aorta. CONCLUSIONS Technically very difficult study for interpretation Poorly visualized intracardiac valves Previewed by: Dr. Yoni Guevara MD (Electronically Signed) Final Date: 11 December 2021 10:20
[2021-12-11] MEDS: POTASSIUM CHLORIDE ER 20 MEQ TAB.ER PO SCH (11:01)
== END 2021-12-11 12:01 | disposition home or self-care (01) ==
LOC: EC 04:56 → 6NMEDSUR 07:17
PROVIDERS: ADMIT Internal Medicine; ATTEND Internal Medicine
DX: R07.89 Other chest pain (principal); I25.2 Old myocardial infarction; I45.2 Bifascicular block; F41.9 Anxiety disorder, unspecified; I13.0 Hypertensive heart and chronic kidney disease with heart failure and stage 1 through stage 4 chronic kidney disease, or unspecified chronic kidney disease; I50.32 Chronic diastolic (congestive) heart failure; N18.30 Chronic kidney disease, stage 3 unspecified; I48.0 Paroxysmal atrial fibrillation; E78.5 Hyperlipidemia, unspecified; I25.10 Atherosclerotic heart disease of native coronary artery without angina pectoris; G47.33 Obstructive sleep apnea (adult) (pediatric); I08.2 Rheumatic disorders of both aortic and tricuspid valves; J44.9 Chronic obstructive pulmonary disease, unspecified; E66.9 Obesity, unspecified; H40.9 Unspecified glaucoma; Z79.899 Other long term (current) drug therapy; Z79.01 Long term (current) use of anticoagulants; Z79.02 Long term (current) use of antithrombotics/antiplatelets; Z95.0 Presence of cardiac pacemaker; Z86.73 Personal history of transient ischemic attack (TIA), and cerebral infarction without residual deficits; Z95.2 Presence of prosthetic heart valve; Z95.5 Presence of coronary angioplasty implant and graft; Z96.643 Presence of artificial hip joint, bilateral; Z80.9 Family history of malignant neoplasm, unspecified; Z86.711 Personal history of pulmonary embolism; Z90.5 Acquired absence of kidney; Z87.891 Personal history of nicotine dependence; Z82.49 Family history of ischemic heart disease and other diseases of the circulatory system; Z82.5 Family history of asthma and other chronic lower respiratory diseases; Z68.39 Body mass index [BMI] 39.0-39.9, adult
CPT/HCPCS: 99285; 36415; 93005; 85379; 80061; 80053; 83735; 84484; 85025; 85610; 85730; 71046; 78582; G0378 ×2; C8929; A9540; A9567; Q9950; 93306